=== PATIENT | male | born 1945 | race African-American/Black ===

== ENCOUNTER → 2016-09-04 | Outpatient (CLI) | payer MEDICARE, MEDICAID ==
[~2016-09-04] MED LIST: BARIUM SULFATE 135 ML (E-Z HD) PO ONE
--- NOTE | 2016-09-04 17:25 | RADRPT ---
PROCEDURE: Video-fluoroscopy swallowing study. CLINICAL INDICATION: Dysphagia. TECHNIQUE: Fluoroscopic guided video swallowing study was done in conjunction with the speech ther apist. The study was confined to the oral, pharyngeal, and cervical phases of the swallowing mechani sm. 3.4 minutes of fluoroscopy time was used. 33 series of images were obtained. COMPARISON: No prior study is available for comparison. FINDINGS: There is aspiration during swallowing. IMPRESSION: 1. Abnormal study with aspiration during swallowing. 2. Please refer to the speech therapist's recommendations for future feedings. RPTAT: QQ .Rolan Patel MD, MD Date Time Electronically viewed and signed by .Rolan Patel MD, on 09/04/2016 17:24 .R/
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
== END | disposition home or self-care (01) ==
LOC: RAD 11:45
PROVIDERS: ATTEND Internal Medicine
DX: R91.8 Other nonspecific abnormal finding of lung field (principal); R07.9 Chest pain, unspecified; R13.10 Dysphagia, unspecified
CPT/HCPCS: 71010; 74230; 92611; G8996; G8997; G8998

== ENCOUNTER 2016-09-09 19:50 | Inpatient (IN) | payer MEDICARE, MEDICAID ==
[~2016-09-09] VITALS: Ht 172.7 cm; Wt 70.0 kg
[2016-09-09] MEDS ORDERED: SOD CHLORIDE 0.9% 1,000 ML IV STA (20:24)
[2016-09-09] MEDS ORDERED: KETOROLAC 15 MG INJ IV STA (20:24)
[2016-09-09 21:03] LABS: ADD SCAN DIFF NO
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
[2016-09-09 21:08] LABS: BASOPHILS % 0.5 % (0.0-2.0); EOSINOPHILS # 0.4 10^3/ul (0.0-0.5); EOSINOPHILS % 6.2 % (0.0-7.0); HEMATOCRIT 31.1 % (42.0-52.0); HEMOGLOBIN 10.3 g/dl (14.0-18.0); LYMPHOCYTES # 1.9 10^3/ul (0.8-2.9); LYMPHOCYTES % 29.7 % (15.0-51.0); MEAN CORPUSCULAR HEMOGLOBIN 27.8 pg (29.0-33.0); MEAN CORPUSCULAR HGB CONC 33.1 g/dl (32.0-37.0); MEAN CORPUSCULAR VOLUME 84.1 fl (82.0-101.0); MEAN PLATELET VOLUME 11.6 fl (7.4-10.4); MONOCYTE # 0.9 10^3/ul (0.3-0.9); MONOCYTES % 14.2 % (0.0-11.0); NEUTROPHIL # 3.1 10^3/ul (1.6-7.5); NEUTROPHILS % 49.2 % (39.0-77.0); PLATELET COUNT 318 10^3/UL (140-415); RED CELL DISTRIBUTION WIDTH 15.9 % (11.5-14.5); WHITE BLOOD COUNT 6.3 10^3/ul (4.8-10.8)
--- NOTE | 2016-09-09 21:13 | ERA ---
ER Documentation Chief Complaint Date/Time DATE: 09/09/16 TIME: 21:07 Chief Complaint fall HPI 71-year-old man brought in by EMS for fall earlier today. Patient recently suffered a stroke and has left-sided paresis, he sustained a left brow laceration and has complaints of left knee pain. HPI supplemented by reviewing previous medical records, [facility] records, speaking to EMS, and nursing staff. ROS All systems reviewed and are negative except as per history of present illness. Medications Home Meds Reported Medications Lisinopril* (Zestril*) 2.5 Mg Tablet, 2.5 MG GTB DAILY, #30 TAB HOLD IF SBP<110 OR HR<60 09/09/16 Ascorbic Acid (Vitamin C) 500 Mg Tab, 500 MG GTB DAILY, TAB 09/09/16 Famotidine* (Famotidine*) 20 Mg Tablet, 20 MG GTB DAILY, #30 TAB 09/09/16 Multivit-Min/Iron Fum/Folic AC (Knutx-Pnlyian-Qecxmzny Tablet) 1 Each Tablet, 1 EACH GTB DAILY, TAB 09/09/16 Hydrocodone/Acetaminophen (Lortab 7.5-325 mg Tablet) 1 Each Tablet, 1 EACH GTB Q4H Y for PAIN 4-12/24, TAB 09/09/16 Furosemide* (Lasix*) 20 Mg Tablet, 20 MG GTB BID, TAB 09/09/16 Lactulose* (Lactulose*) 20 Gm/30 Ml Solution, 20 GM GTB DAILY, ML 09/09/16 Ipratropium-Albuterol (Ipratropium-Albuterol) 0.5-3 Mg/3 Ml Ampul.neb, 3 ML INHALATION QID, #30 VIAL 09/09/16 Bisacodyl* (Bisacodyl*) 10 Mg Supp, 10 MG ND DAILY Y for NEEDED, SUPP 09/09/16 Carvedilol* (Coreg*) 3.125 Mg Tablet, 3.125 MG GTB BID, #60 TAB HOLD IF SBP<110 OR HR<60 09/09/16 Lorazepam* (Lorazepam*) 0.5 Mg Tablet, 0.5 MG GTB Q6 Y for ANXIETY, TAB 09/09/16 Aspirin* (Aspirin* Chew) 81 Mg Tab.chew, 81 MG GTB DAILY, TAB.CHEW 09/09/16 Acetaminophen* (Acetaminophen* Susp) 325 Mg/10.15 Ml Solution, 650 MG GTB Q4H Y for MILD PAIN LEVEL 1-3, ML 09/09/16 Allergies Allergies: Coded Allergies: codeine (Unverified Allergy, Unknown, 09/09/16) PMhx/Soc Tracheostomy, dysphagia, stroke with left-sided deficit, gastrostomy tube, hyperlipidemia, anxiety, hypertension, cardiomyopathy, chronic sacral and heel pressure ulcers History of Surgery: Yes (G Tube) Hx Respiratory Disorders: Yes (Trach) Hx Miscellaneous Medical Probl: Yes (CVA,dysphagia, anemia, HTN) Hx Alcohol Use: No Hx Substance Use: No Hx Tobacco Use: No Smoking Status: Unknown if ever smoked FmHx Family History: diabetes Physical Exam Vitals Vital Signs Date Time Temp Pulse Resp B/P Pulse Ox O2 Delivery O2 Flow Rate FiO2 09/09/16 21:20 65 14 109/70 100 Nasal Cannula 4.0 09/09/16 20:09 98.7 72 12 117/76 100 Physical Exam GENERAL: Well-developed, appears dehydrated, afebrile HEENT: Dry mucous membranes, pink conjunctiva, no cervical spine tenderness or step-off deformity, tracheostomy in place with clean dry skin surrounding NEURO: Alert and oriented 3, able to answer simple questions and follow simple commands, positive left upper and lower extremity paresis, moving extremities on the right without difficulty CARDIAC: Regular rate and rhythm, no murmurs rubs or gallops LUNGS: Clear bilaterally no wheezing crackles or stridor ABDOMEN: Soft nontender, no guarding, no rigidity, no rebound, no psoas sign no obturator sign. Normoactive bowel sounds SKIN: Warm and dry to touch, superficial skin ulcerations to the sacrum and heel , superficial left brow laceration measuring 3 cm without active bleeding or gaping. EXTREMITIES: Positive soft tissue contusion and tenderness to the left knee. Calves are bilaterally symmetrical, no Homans sign, no popliteal cord sign. Distal pulses equal and bilateral PSYCH: Normal affect without agitation or irritability Result Diagram: 09/09/16203209/09/162032 Results 24 hrs Laboratory Tests Test 09/09/16 20:33 09/09/16 21:15 White Blood Count 6.310^3/ul Red Blood Count 3.7010^6/ul Hemoglobin 10.3g/dl Hematocrit 31.1% Mean Corpuscular Volume 84.1fl Mean Corpuscular Hemoglobin 27.8pg Mean Corpuscular Hemoglobin Concent 33.1g/dl Red Cell Distribution Width 15.9% Platelet Count 58926^3/UL Mean Platelet Volume 11.6fl Neutrophils % 49.2% Lymphocytes % 29.7% Monocytes % 14.2% Eosinophils % 6.2% Basophils % 0.5% Nucleated Red Blood Cells % 0.0/100WBC Neutrophils # 3.110^3/ul Lymphocytes # 1.910^3/ul Monocytes # 0.910^3/ul Eosinophils # 0.410^3/ul Basophils # 0.010^3/ul Nucleated Red Blood Cells # 0.010^3/ul Prothrombin Time 13.0Sec Prothrombin Time Ratio 1.0 INR International Normalized Ratio 0.98 Sodium Level 141mmol/L Potassium Level 3.8mmol/L Chloride Level 99mmol/L Carbon Dioxide Level 35mmol/L Anion Gap 11 Blood Urea Nitrogen 20mg/dl Creatinine 0.81mg/dl Glucose Level 83mg/dl Calcium Level 9.8mg/dl Total Bilirubin 0.0mg/dl Direct Bilirubin 0.00mg/dl Indirect Bilirubin 0.0mg/dl Aspartate Amino Transf (AST/SGOT) 64IU/L Alanine Aminotransferase (ALT/SGPT) 151IU/L Alkaline Phosphatase 379IU/L Total Protein 7.6g/dl Albumin 4.3g/dl Globulin 3.30g/dl Albumin/Globulin Ratio 1.30 Lipase 31U/L Urine Color YELLOW Urine Clarity CLEAR Urine pH 7.0 Urine Specific [place] 1.012 Urine Ketones NEGATIVEmg/dL Urine Nitrite NEGATIVEmg/dL Urine Bilirubin NEGATIVEmg/dL Urine Urobilinogen NEGATIVEmg/dL Urine Leukocyte Esterase NEGATIVELeu/ul Urine Hemoglobin NEGATIVEmg/dL Urine Glucose NEGATIVEmg/dL Urine Total Protein NEGATIVEmg/dl Current Medications Medications (Trade) Dose Ordered Sig/Dante Route PRN Reason Start Time Stop Time Status Last Admin Dose Admin Sodium Chloride (NS) 1,000 ml @ 1,000 mls/hr Q1H STAT IV 09/09/16 20:24 09/09/16 21:23 DC 09/09/16 21:07 Ketorolac Tromethamine (Toradol) 15 mg ONCE STAT IV 09/09/16 20:24 09/09/16 20:27 DC 09/09/16 21:07 Diphtheria/ Tetanus/Acell Pertussis (Adacel) 0.5 ml ONCE ONCE IM* 09/09/16 21:30 09/09/16 21:31 DC Procedures/MDM IV line was established patient was placed on collection administrator rhythm strip revealed a sinus rhythm at about 80 bpm with upright P and T waves. Patient was afebrile. I administered 1 L normal saline intravenously for dehydration, Toradol 15 mg IV for complaints of pain, and tetanus toxoid 0.5 mL intramuscular injection. Steri-Strips were applied to the left brow with good approximation of the skin. Final length of the laceration was 3 cm. One view chest x-ray performed, read by me as a tracheostomy placed, atelectatic changes bilaterally, no acute infiltrates, no pneumothorax. X-ray Pelvis 1V Interpreted by me: Bones: No fracture Joints: No dislocation Foreign body: None CT scan of the brain was performed there is negative for acute bleed mass or shift although there was a subacute infarct noted consistent with his history. Please refer to radiologist dictation for full report. Three-view x-ray of the left knee was performed there arthritic changes and narrowing of the joint, radiologist read it as impacted fracture and was compared to previous x-ray and it seems this is acute. Given the patient's symptoms he will be admitted for continued medical management, pain control, and orthopedic consultation. CBC was unremarkable, electrolytes revealed dehydration, liver function tests revealed mild transaminitis, troponin was negative, urine analysis was negative for infection. Patient is without complaints of pain at this time and he will be admitted to [facility] for continued medical management and orthopedic consultation. Departure Diagnosis: Primary Impression: Laceration of brow without complication Qualified Code: S01.81XA - Laceration of brow without complication, initial encounter Additional Impressions: Impacted fracture Dehydration Stroke Qualified Code: I63.9 - Cerebrovascular accident (CVA), unspecified mechanism Condition: MARYBEL Del Angel MD Sep 09, 2016 21:12
[2016-09-09 21:25] LABS: ALBUMIN 4.3 g/dl (3.3-4.9); ALBUMIN/GLOBULIN RATIO 1.3; CALCIUM 9.8 mg/dl (8.4-10.2); CREATININE 0.81 mg/dl (0.61-1.24); POTASSIUM 3.8 mmol/L (3.5-5.1); TOTAL PROTEIN 7.6 g/dl (6.1-8.1)
[2016-09-09 21:27] LABS: ADD UMIC NO; UR ASCORBIC ACID 40 mg/dL (NEGATIVE); UR BILIRUBIN (Dip) NEGATIVE (NEGATIVE); UR BLOOD (Dip) NEGATIVE (NEGATIVE); UR CLARITY CLEAR (CLEAR); UR COLOR YELLOW (YELLOW); UR GLUCOSE (Dip) NEGATIVE (NEGATIVE); UR KETONES (Dip) NEGATIVE (NEGATIVE); UR LEUKOCYTE ESTERASE (Dip) NEGATIVE Leu/ul (NEGATIVE); UR NITRITE (Dip) NEGATIVE (NEGATIVE); UR SPECIFIC GRAVITY (Dip) 1.012 (1.003-1.030); UR TOTAL PROTEIN (Dip) NEGATIVE (NEGATIVE); UR UROBILINOGEN (Dip) NEGATIVE (NEGATIVE)
[2016-09-09] MEDS ORDERED: ACET325S GTB (21:30)
[2016-09-09] MEDS ORDERED: DIPHTH/TET/ACEL PERTUSS (ADULT) 0.5 ML VIAL IM* ONE (21:30)
[2016-09-09] MEDS ORDERED: LORA0.5T GTB (21:31)
[2016-09-09] MEDS ORDERED: ASPI81TA3 GTB (21:31)
[2016-09-09] MEDS ORDERED: CARV3.12 GTB (21:32)
[2016-09-09] MEDS ORDERED: IPRA3AMP INHALATION (21:34)
[2016-09-09] MEDS ORDERED: BISA10SU75 PR (21:34)
[2016-09-09] MEDS ORDERED: FURO-110 GTB (21:36)
[2016-09-09] MEDS ORDERED: LACT20SO2 GTB (21:36)
[2016-09-09] MEDS ORDERED: HYDR-3533 GTB (21:37)
[2016-09-09] MEDS ORDERED: MULT-876 GTB (21:38)
[2016-09-09] MEDS ORDERED: FAMO20TA18 GTB (21:39)
[2016-09-09] MEDS ORDERED: ASC500 GTB (21:41)
[2016-09-09] MEDS ORDERED: LISI2.5T80 GTB (21:42)
[2016-09-09 21:47] LABS: INR 0.98
--- NOTE | 2016-09-09 21:47 | RADRPT ---
PROCEDURE: X-ray left knee CLINICAL INDICATION: Injury to the left knee TECHNIQUE: 2 views left knee COMPARISON: Left knee plain film series dated 06/06/2016. FINDINGS: Interval depression of the lateral tibial plateau, suggesting an impacted fracture at the lateral ti bial plateau. This is seen only on the tunnel view. On the AP view of the lateral tibial plateau a ppears intact. Recommend CT correlation. Small amount of joint fluid. There is a healed fracture of the mid shaft left fibular diaphysis. Superior inferior patellar enthesophytes. Enthesopathic changes seen at the anterior tibial tubercl e. Mild medial joint compartment narrowing. Remote injury at the origin of the medial collateral li gament with heterotopic calcifications. IMPRESSION: Impacted fracture at the lateral tibial plateau, and recommend CT correlation. RPTAT: UU Physician Clayton Date Time Electronically viewed and signed by Physician Clayton on 09/09/2016 21:47 RS/
--- NOTE | 2016-09-09 21:53 | RADRPT ---
PROCEDURE: X-ray pelvis. CLINICAL INDICATION: Fall with pelvic pain. TECHNIQUE: Single frontal view of the pelvis. COMPARISON: CT examination the abdomen and pelvis dated 07/03/2016. FINDINGS: No acute fracture or dislocation. Suboptimal position of left hip for full evaluation of the femora l neck. 2 cm lytic lesion in the proximal left femoral diaphysis, and this appears increased in size over in terval since CT examination dated 07/03/2016. CT examination of the right hip may be of further use. A benign-appearing bone island is likely present at the intertrochanteric right hip. Contrast material seen within retained stool in the bowel. Soft tissues otherwise unremarkable. IMPRESSION: 1. No acute fracture. 2. 2 cm lytic lesion in the proximal diaphysis of the left femur appears increased over interval si nce 07/03/2016, concerning for an osteolytic metastatic deposit. 3. CT examination may be of further use for meaningful comparison and further characterization. RPTAT: UU Physician Clayton Date Time Electronically viewed and signed by Physician Clayton on 09/09/2016 21:53 RS/
--- NOTE | 2016-09-09 22:01 | RADRPT ---
PROCEDURE: CT Brain without contrast. CLINICAL INDICATION: Headaches and evaluate for bleed TECHNIQUE: A CT of the brain was performed on a GE LightSpeed 64-slice CT scanner utilizing axial imaging from the skull base through the vertex without IV contrast. Multiplanar reformatted images were made. Images were reviewed on a PACS workstation. The CTDIvol is 43.27 mGy and the DLP is 878 .18 mGycm. One of the following 3 dose reduction techniques were used: Automated exposure control; adjustment of the mA and/or kV according to patient size; or use of iterative reconstruction technique. COMPARISON: None FINDINGS: There is no intracranial hemorrhage, mass effect, or midline shift. No extra-axial fluid collection is seen. The ventricles and sulci are age appropriate. Mild diffuse volume loss is present. Wedge -shaped decreased attenuation is present in the right frontal lobe, insula and operculum compatible with a subacute infarct. A focus of decreased attenuation is present in the left frontal convexity c ompatible with a chronic small vessel infarct. Decreased attenuation is present in the bilateral silver bcortical white matter, centrum semiovale, and periventricular white matter compatible with mild chr onic microvascular ischemic disease. Visualized scalp and calvarium are normal. The bilateral orbits demonstrate prior lens replacement. The bilateral paranasal sinuses and mastoid air cells are remarkable for a lobular retention cyst, polyp or polypoid lesion in the right septated side of the sphenoid sinus. Recommend additional rony ging of the sinuses. IMPRESSION: 1. No evidence of acute intracranial hemorrhage, infarcts, or acute intracranial pathology 2. Subacute appearing right frontal lobe, insular and opercular infarct. Consider MRI to further ev aluate 3. Mild chronic microvascular ischemic disease and mild diffuse volume loss A call report was made to Pk Sr at 09/09/2016 10:00:34 PM following the completion of the examination by the undersigned. RPTAT: HDC .Irina James MD, MD Date Time Electronically viewed and signed by .Irina James MD, on 09/09/2016 22:00 .C/
[2016-09-09 22:22] VITALS: PULSE 87
[2016-09-10] MEDS ORDERED: morphine 4 MG/ML VIAL IV STA (00:15)
[2016-09-10 01:15] VITALS: BP 125/68; RESP 18
[2016-09-10 02:00] VITALS: Ht 172.7 cm; Wt 70.0 kg
[2016-09-10] MEDS ORDERED: BISACODYL 10 MG SUPP PR PRN (04:00)
[2016-09-10] MEDS: ACETAMINOPHEN 650MG/20.3ML CUP GTB PRN (04:26)
[2016-09-10] MEDS: LORAZEPAM 0.5 MG TAB GTB PRN ×3 (04:26→22:33)
[2016-09-10] MEDS: FUROSEMIDE 20 MG TAB GTB SCH ×2 (06:06→18:28)
[2016-09-10 07:31] VITALS: BP 100/67; RESP 19
[2016-09-10] MEDS: ALBUTEROL/IPRATROPIUM (NEB) 3 ML AMP NEB SCH ×4 (08:18→20:12)
[2016-09-10] MEDS: LISINOPRIL 5 MG TAB GTB SCH (09:00)
[2016-09-10] MEDS: LACTULOSE 30ML CUP GTB SCH (09:01)
[2016-09-10] MEDS: ASCORBIC ACID 500 MG TAB GTB SCH (09:01)
[2016-09-10] MEDS: ASPIRIN 81 MG TAB GTB SCH (09:01)
[2016-09-10] MEDS: FAMOTIDINE 20 MG TAB GTB SCH (09:01)
[2016-09-10] MEDS: MULTIVITAMINS/MINERALS TAB GTB SCH (09:11)
[2016-09-10] MEDS: HYDROCODONE/APAP (7.5/325) TAB GTB PRN (11:31)
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
[2016-09-10 20:00] VITALS: BP 135/72; RESP 20
[2016-09-11] MEDS: HYDROCODONE/APAP (7.5/325) TAB GTB PRN ×3 (01:24→19:40)
[2016-09-11] MEDS: LORAZEPAM 0.5 MG TAB GTB PRN ×3 (04:38→18:01)
[2016-09-11 05:25] LABS: ADD SCAN DIFF NO
[2016-09-11 05:30] LABS: BASOPHILS % 0.6 % (0.0-2.0); EOSINOPHILS # 0.6 10^3/ul (0.0-0.5); EOSINOPHILS % 10.7 % (0.0-7.0); HEMATOCRIT 29.7 % (42.0-52.0); LYMPHOCYTES # 1.6 10^3/ul (0.8-2.9); LYMPHOCYTES % 29.4 % (15.0-51.0); MEAN CORPUSCULAR HGB CONC 33.7 g/dl (32.0-37.0); MEAN CORPUSCULAR VOLUME 83.2 fl (82.0-101.0); MEAN PLATELET VOLUME 12.8 fl (7.4-10.4); MONOCYTE # 0.6 10^3/ul (0.3-0.9); NEUTROPHIL # 2.5 10^3/ul (1.6-7.5); NEUTROPHILS % 47.1 % (39.0-77.0); PLATELET COUNT 289 10^3/UL (140-415); RED BLOOD COUNT 3.57 10^6/ul (4.70-6.10); RED CELL DISTRIBUTION WIDTH 15.6 % (11.5-14.5); WHITE BLOOD COUNT 5.3 10^3/ul (4.8-10.8)
[2016-09-11 06:12] LABS: CALCIUM 9.3 mg/dl (8.4-10.2); CREATININE 0.7 mg/dl (0.61-1.24)
[2016-09-11] MEDS: FUROSEMIDE 20 MG TAB GTB SCH ×2 (06:20→17:57)
[2016-09-11 08:10] VITALS: BP 122/72; RESP 20
[2016-09-11] MEDS: MULTIVITAMINS/MINERALS TAB GTB SCH (08:58)
[2016-09-11] MEDS: ASPIRIN 81 MG TAB GTB SCH (08:58)
[2016-09-11] MEDS: LACTULOSE 30ML CUP GTB SCH (08:58)
[2016-09-11] MEDS: FAMOTIDINE 20 MG TAB GTB SCH (08:58)
[2016-09-11] MEDS: ASCORBIC ACID 500 MG TAB GTB SCH (08:58)
[2016-09-11] MEDS: LISINOPRIL 5 MG TAB GTB SCH (08:59)
--- NOTE | 2016-09-11 09:03 | RADRPT ---
PROCEDURE: CT of the left knee CLINICAL INDICATION: Left knee pain, possible fracture TECHNIQUE: Axial images through the left knee without IV contrast. Coronal and sagittal reformat s. Images were interpreted at an independent PACS workstation. CTDI 18.31 mGy DLP 45 4.42 mGy-cm One or more of the following dose reduction techniques were used: Automated exposure control Adjustment of the mA and / or kV according to patient size Use of iterative reconstruction technique. COMPARISON: Radiographs of the left knee September 09, 2016 FINDINGS: The bones are very osteopenic. There is no definite CT evidence of acute fracture. There is mild t o moderate tricompartmental osteoarthrosis, medial femorotibial compartment predominant, with margin al osteophyte formation. There is a small knee joint effusion. There is a small complex popliteal cyst that may contain some blood products or debris (axial 43). There is a 4 mm anterior intra-articular body just anterior t o the anterior root ligament of the lateral meniscus. There is bone proliferation at the tibial tuberosity as well as the superior patella compatible with enthesopathy. There are moderate degenerative changes at the proximal tibiofibular joint. IMPRESSION: 1. No CT evidence of acute osseous abnormality. Significant background osteopenia somewhat limits evaluation and if there is persistent clinical concern MRI may provide additional detail regarding a nondisplaced fracture. 2. 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 3. Small knee joint effusion with complex popliteal cyst that may contain blood products or debris. 4 mm ossified intra-articular body along the anterior aspect of the joint space. RPTAT: UU .Jairo Szymanski MD, Date Time Electronically viewed and signed by .Jairo Szymanski MD, on 09/11/2016 09:02 ./
[2016-09-11] MEDS: ALBUTEROL/IPRATROPIUM (NEB) 3 ML AMP NEB SCH ×3 (09:13→21:01)
--- NOTE | 2016-09-11 14:56 | CONS ---
Date/Time of Note Date/Time of Note DATE: 09/11/16 TIME: 14:41 Assessment/Plan Assessment/Plan Chief Complaint/Hosp Course 71 yo male with metastatic breast cancer no admitted s/p fall with concern for tibial plateau fracture. CT LLE was done which was not diagnostic. # metastatic breast ca -we have contracted the to try an obtain records of what chemotherapy patient has received in the past. is unable to tell me who the patient's treating oncologist is -patient's functional status is so poor however that at this point he would not be a candidate for any type of chemotherapy at this point -if patient needs surgery and this is proven to be a pathologic fracture pt will need XRT to the area -will f/u orthopedic surgery recommendations Problems: (1) Impacted fracture Status: Acute (2) Breast cancer metastasized to brain Status: Chronic Consultation Date/Type/Reason Admit Date/Time Sep 09, 2016 at 22:07 Date of Consultation: Sep 11, 2016 Type of Consultation: oncology Reason for Consultation metastatic breast cancer Referring Provider: ARNOLDO GUILLAUME MD Hx of Present Illness 71 yo with history of metastatic breast cancer to brain, who was recently admitted to [facility] for stroke with left-sided hemiparesis history and respiratory failure with tracheostomy. He was brought to the ER from the nursing facility s/p fall. 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 A CT of that left lower extremity was done which revealed significant background osteopenia where a non displaced fracture could not be ruled out. . Psychological: no complaints Past Medical History metastatic breast cancer anemia h/o CVA with left sided hemiplegia HTN h/o breast cancer with brain mets HTN Family History Significant Family History: no pertinent family hx Social History Alcohol Use: none Smoking Status: Unknown if ever smoked Drug Use: none Exam/Review of Systems Vital Signs Vitals Vital Signs Date Time Temp Pulse Resp B/P Pulse Ox O2 Delivery O2 Flow Rate FiO2 09/11/16 14:18 74 20 100 Nasal Cannula 2.0 09/11/16 08:10 98.7 122/72 Intake and Output 09/10/16 09/10/16 09/11/16 15:00 23:00 07:00 Intake Total 1100 ml 960 ml Balance 1100 ml 960 ml Exam Constitutional: frail, non-verbal Psych: confusion, no complaints Head: normocephalic Eyes: nl conjunctiva ENMT: other (trach in place) Neck: non-tender, supple Respiratory: clear to auscultation Cardiovascular: nl pulses, regular rate and rhythm Gastrointestinal: other (g tube), soft Musculoskeletal: nl extremities to inspection Results Result Diagram: 09/11/16 0450 09/11/16 0450 Results 24 hrs Laboratory Tests Test 09/11/16 04:50 White Blood Count 5.3 Red Blood Count 3.57 L Hemoglobin 10.0 L Hematocrit 29.7 L Mean Corpuscular Volume 83.2 Mean Corpuscular Hemoglobin 28.0 L Mean Corpuscular Hemoglobin Concent 33.7 Red Cell Distribution Width 15.6 H Platelet Count 289 Mean Platelet Volume 12.8 H Neutrophils % 47.1 Lymphocytes % 29.4 Monocytes % 12.0 H Eosinophils % 10.7 H Basophils % 0.6 Nucleated Red Blood Cells % 0.0 Neutrophils # 2.5 Lymphocytes # 1.6 Monocytes # 0.6 Eosinophils # 0.6 H Basophils # 0.0 Nucleated Red Blood Cells # 0.0 Sodium Level 139 Potassium Level 4.0 Chloride Level 102 Carbon Dioxide Level 31 Anion Gap 10 Blood Urea Nitrogen 16 Creatinine 0.70 Glucose Level 102 Calcium Level 9.3 Medications Medications Current Medications Acetaminophen (Tylenol Liquid) 650 mg Q4H PRN GTB MILD PAIN LEVEL 1-3 Last administered on 09/10/16 04:26; Admin Dose 650 MG; Start 09/10/16 at 04:00 Ascorbic Acid (Vitamin C) 500 mg DAILY GTB Last administered on 09/11/16 08:58 ; Admin Dose 500 MG; Start 09/10/16 at 09:00 Aspirin (Aspirin) 81 mg DAILY GTB Last administered on 09/11/16 08:58; Admin Dose 81 MG; Start 09/10/16 at 09:00 Bisacodyl (Dulcolax Supp) 10 mg DAILY PRN [place] NEEDED; Start 09/10/16 at 04:00 Carvedilol (Coreg) 3.125 mg BID GTB Last administered on 09/11/16 08:59; Admin Dose 3.125 MG; Start 09/10/16 at 09:00 Famotidine (Pepcid) 20 mg DAILY GTB Last administered on 09/11/16 08:58; Admin Dose 20 MG; Start 09/10/16 at 09:00 Acetaminophen/ Hydrocodone Bitart ([place] (7.5-325)) 1 tab Q4H PRN GTB PAIN 4-10 10 Last administered on 09/11/16 09:02; Admin Dose 1 TAB; Start 09/10/16 at 04 :00 Lactulose (Enulose) 20 gm DAILY GTB Last administered on 09/11/16 08:58; Admin Dose 20 GM; Start 09/10/16 at 09:00 Lisinopril (Zestril) 2.5 mg DAILY GTB Last administered on 09/11/16 08:59; Admin Dose 2.5 MG; Start 09/10/16 at 09:00 Lorazepam (Ativan) 0.5 mg Q6 PRN GTB ANXIETY Last administered on 09/11/16 11: 02; Admin Dose 0.5 MG; Start 09/10/16 at 04:00 Multivitamins/ Minerals (Theragran-M) 1 tab DAILY GTB Last administered on 09/11 08:58; Admin Dose 1 TAB; Start 09/10/16 at 09:00 KHARI BENSON M.D. Sep 11, 2016 14:52
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
[2016-09-11 20:22] VITALS: BP 137/75; RESP 18
[2016-09-12] MEDS: LORAZEPAM 0.5 MG TAB GTB PRN ×2 (00:31→21:29)
[2016-09-12] MEDS: HYDROCODONE/APAP (7.5/325) TAB GTB PRN (01:51)
[2016-09-12 05:51] LABS: CALCIUM 9.6 mg/dl (8.4-10.2); CREATININE 0.65 mg/dl (0.61-1.24)
[2016-09-12] MEDS: FUROSEMIDE 20 MG TAB GTB SCH ×2 (06:58→17:26)
[2016-09-12 08:12] VITALS: BP 114/57; RESP 20
[2016-09-12] MEDS: ALBUTEROL/IPRATROPIUM (NEB) 3 ML AMP NEB SCH ×4 (08:54→19:37)
[2016-09-12] MEDS: FAMOTIDINE 20 MG TAB GTB SCH (09:27)
[2016-09-12] MEDS: MULTIVITAMINS/MINERALS TAB GTB SCH (09:27)
[2016-09-12] MEDS: ASPIRIN 81 MG TAB GTB SCH (09:27)
[2016-09-12] MEDS: ASCORBIC ACID 500 MG TAB GTB SCH (09:27)
[2016-09-12] MEDS: LISINOPRIL 5 MG TAB GTB SCH (09:28)
[2016-09-12] MEDS: LACTULOSE 30ML CUP GTB SCH (09:29)
--- NOTE | 2016-09-12 15:05 | CONS ---
Date/Time of Note Date/Time of Note DATE: 09/12/16 TIME: 15:03 Assessment/Plan Assessment/Plan Chief Complaint/Hosp Course 71 yo male with metastatic breast cancer no admitted s/p fall with concern for tibial plateau fracture. CT LLE was done which was not diagnostic. # metastatic breast ca -patient's functional status is so poor however that at this point he would not be a candidate for any type of chemotherapy at this point -if patient needs surgery and this is proven to be a pathologic fracture pt will need XRT to the area -will f/u orthopedic surgery recommendations Problems: Consultation Date/Type/Reason Admit Date/Time Sep 09, 2016 at 22:07 Initial Consult Date 09/11/16 Type of Consultation: oncology Reason for Consultation metastatic breast cancer Referring Provider: ARNOLDO GUILLAUME MD 24 HR Interval Summary Free Text/Dictation no acute overnight events Exam/Review of Systems Vital Signs Vitals Vital Signs Date Time Temp Pulse Resp B/P Pulse Ox O2 Delivery O2 Flow Rate FiO2 09/12/16 12:41 75 18 98 Nasal Cannula 2.0 09/12/16 08:12 98.3 114/57 Intake and Output 09/11/16 09/11/16 09/12/16 15:00 23:00 07:00 Intake Total 1100 ml 1210 ml Balance 1100 ml 1210 ml Exam Constitutional: alert, frail, non-verbal Psych: confusion Head: normocephalic Eyes: nl conjunctiva ENMT: nl external ears & nose Neck: non-tender, supple Respiratory: clear to auscultation Cardiovascular: regular rate and rhythm Gastrointestinal: soft Musculoskeletal: muscle weakness Results Result Diagram: 09/11/16 0450 09/12/16 0439 Results 24 hrs Laboratory Tests Test 09/12/16 04:39 Sodium Level 139 Potassium Level 4.0 Chloride Level 101 Carbon Dioxide Level 29 Anion Gap 13 Blood Urea Nitrogen 15 Creatinine 0.65 Glucose Level 110 Calcium Level 9.6 Medications Medications Current Medications Acetaminophen (Tylenol Liquid) 650 mg Q4H PRN GTB MILD PAIN LEVEL 1-3 Last administered on 09/10/16 04:26; Admin Dose 650 MG; Start 09/10/16 at 04:00 Ascorbic Acid (Vitamin C) 500 mg DAILY GTB Last administered on 09/12/16 09:27 ; Admin Dose 500 MG; Start 09/10/16 at 09:00 Aspirin (Aspirin) 81 mg DAILY GTB Last administered on 09/12/16 09:27; Admin Dose 81 MG; Start 09/10/16 at 09:00 Bisacodyl (Dulcolax Supp) 10 mg DAILY PRN [place] NEEDED; Start 09/10/16 at 04:00 Carvedilol (Coreg) 3.125 mg BID GTB Last administered on 09/12/16 09:28; Admin Dose 3.125 MG; Start 09/10/16 at 09:00 Famotidine (Pepcid) 20 mg DAILY GTB Last administered on 09/12/16 09:27; Admin Dose 20 MG; Start 09/10/16 at 09:00 Acetaminophen/ Hydrocodone Bitart ([place] (7.5-325)) 1 tab Q4H PRN GTB PAIN 4- Last administered on 09/12/16 01:51; Admin Dose 1 TAB; Start 09/10/16 at 04 :00 Lactulose (Enulose) 20 gm DAILY GTB Last administered on 09/12/16 09:29; Admin Dose 20 GM; Start 09/10/16 at 09:00 Lisinopril (Zestril) 2.5 mg DAILY GTB Last administered on 09/12/16 09:28; Admin Dose 2.5 MG; Start 09/10/16 at 09:00 Lorazepam (Ativan) 0.5 mg Q6 PRN GTB ANXIETY Last administered on 09/12/16 00: 31; Admin Dose 0.5 MG; Start 09/10/16 at 04:00 Multivitamins/ Minerals (Theragran-M) 1 tab DAILY GTB Last administered on 09/12 09:27; Admin Dose 1 TAB; Start 09/10/16 at 09:00 KHARI BENSON M.D. Sep 12, 2016 15:05
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
[2016-09-12 20:42] VITALS: BP 128/67; RESP 20
[2016-09-13] MEDS: LORAZEPAM 0.5 MG TAB GTB PRN ×3 (04:16→22:02)
[2016-09-13 05:19] LABS: BASOPHILS % 0.4 % (0.0-2.0); EOSINOPHILS # 0.3 10^3/ul (0.0-0.5); EOSINOPHILS % 6.8 % (0.0-7.0); HEMATOCRIT 31.2 % (42.0-52.0); HEMOGLOBIN 10.5 g/dl (14.0-18.0); LYMPHOCYTES # 1.5 10^3/ul (0.8-2.9); LYMPHOCYTES % 29.4 % (15.0-51.0); MEAN CORPUSCULAR HEMOGLOBIN 27.9 pg (29.0-33.0); MEAN CORPUSCULAR HGB CONC 33.7 g/dl (32.0-37.0); MEAN CORPUSCULAR VOLUME 82.8 fl (82.0-101.0); MEAN PLATELET VOLUME 12.5 fl (7.4-10.4); MONOCYTE # 0.6 10^3/ul (0.3-0.9); MONOCYTES % 12.1 % (0.0-11.0); NEUTROPHIL # 2.6 10^3/ul (1.6-7.5); NEUTROPHILS % 51.1 % (39.0-77.0); PLATELET COUNT 310 10^3/UL (140-415); RED BLOOD COUNT 3.77 10^6/ul (4.70-6.10); RED CELL DISTRIBUTION WIDTH 15.6 % (11.5-14.5)
[2016-09-13] MEDS: FUROSEMIDE 20 MG TAB GTB SCH ×2 (05:20→18:15)
[2016-09-13 05:51] LABS: CALCIUM 9.9 mg/dl (8.4-10.2); CREATININE 0.63 mg/dl (0.61-1.24); POTASSIUM 4.3 mmol/L (3.5-5.1)
[2016-09-13 06:01] LABS: ADD SCAN DIFF NO
[2016-09-13] MEDS: ACETAMINOPHEN 650MG/20.3ML CUP GTB PRN (08:46)
[2016-09-13] MEDS: LACTULOSE 30ML CUP GTB SCH (08:46)
[2016-09-13] MEDS: MULTIVITAMINS/MINERALS TAB GTB SCH (08:46)
[2016-09-13] MEDS: LISINOPRIL 5 MG TAB GTB SCH (08:47)
[2016-09-13] MEDS: ASPIRIN 81 MG TAB GTB SCH (08:47)
[2016-09-13] MEDS: FAMOTIDINE 20 MG TAB GTB SCH (08:47)
[2016-09-13] MEDS: ASCORBIC ACID 500 MG TAB GTB SCH (08:47)
[2016-09-13] MEDS: ALBUTEROL/IPRATROPIUM (NEB) 3 ML AMP NEB SCH ×4 (08:51→19:47)
--- NOTE | 2016-09-13 10:04 | CONS ---
Date/Time of Note Date/Time of Note DATE: 09/13/16 TIME: 10:03 Assessment/Plan Assessment/Plan Chief Complaint/Hosp Course 71 yo male with metastatic breast cancer no admitted s/p fall with concern for tibial plateau fracture. CT LLE was done which was not diagnostic. # metastatic breast ca -patient's functional status is so poor however that at this point he would not be a candidate for any type of chemotherapy at this point -if patient needs surgery and this is proven to be a pathologic fracture pt will need XRT to the area -will f/u orthopedic surgery recommendations Problems: Consultation Date/Type/Reason Admit Date/Time Sep 09, 2016 at 22:07 Initial Consult Date 09/11/16 Type of Consultation: oncology Reason for Consultation metastatic breast cancer Referring Provider: ARNOLDO GUILLAUME MD 24 HR Interval Summary Free Text/Dictation no acute overnight events Exam/Review of Systems Vital Signs Vitals Vital Signs Date Time Temp Pulse Resp B/P Pulse Ox O2 Delivery O2 Flow Rate FiO2 09/13/16 08:51 61 18 100 Nasal Cannula 2.0 09/12/16 20:42 98.9 128/67 Intake and Output 09/12/16 09/12/16 09/13/16 15:00 23:00 07:00 Intake Total 560 ml 1400 ml Balance 560 ml 1400 ml Exam Constitutional: alert, oriented Psych: no complaints Head: normocephalic Eyes: nl conjunctiva ENMT: nl external ears & nose Neck: non-tender, supple Respiratory: clear to auscultation, normal air movement Cardiovascular: regular rate and rhythm Gastrointestinal: soft Musculoskeletal: nl extremities to inspection, nl gait and stance Extremities: normal pulses Results Result Diagram: 09/13/16 0432 09/13/16 0423 Results 24 hrs Laboratory Tests Test 09/13/16 04:23 09/13/16 04:32 Sodium Level 140 Potassium Level 4.3 Chloride Level 100 Carbon Dioxide Level 31 Anion Gap 13 Blood Urea Nitrogen 16 Creatinine 0.63 Glucose Level 85 Calcium Level 9.9 White Blood Count 5.0 Red Blood Count 3.77 L Hemoglobin 10.5 L Hematocrit 31.2 L Mean Corpuscular Volume 82.8 Mean Corpuscular Hemoglobin 27.9 L Mean Corpuscular Hemoglobin Concent 33.7 Red Cell Distribution Width 15.6 H Platelet Count 310 Mean Platelet Volume 12.5 H Neutrophils % 51.1 Lymphocytes % 29.4 Monocytes % 12.1 H Eosinophils % 6.8 Basophils % 0.4 Nucleated Red Blood Cells % 0.0 Neutrophils # 2.6 Lymphocytes # 1.5 Monocytes # 0.6 Eosinophils # 0.3 Basophils # 0.0 Nucleated Red Blood Cells # 0.0 Medications Medications Current Medications Acetaminophen (Tylenol Liquid) 650 mg Q4H PRN GTB MILD PAIN LEVEL 1-3 Last administered on 09/13/16 08:46; Admin Dose 650 MG; Start 09/10/16 at 04:00 Ascorbic Acid (Vitamin C) 500 mg DAILY GTB Last administered on 09/13/16 08:47 ; Admin Dose 500 MG; Start 09/10/16 at 09:00 Aspirin (Aspirin) 81 mg DAILY GTB Last administered on 09/13/16 08:47; Admin Dose 81 MG; Start 09/10/16 at 09:00 Bisacodyl (Dulcolax Supp) 10 mg DAILY PRN [place] NEEDED; Start 09/10/16 at 04:00 Carvedilol (Coreg) 3.125 mg BID GTB Last administered on 09/13/16 08:47; Admin Dose 3.125 MG; Start 09/10/16 at 09:00 Famotidine (Pepcid) 20 mg DAILY GTB Last administered on 09/13/16 08:47; Admin Dose 20 MG; Start 09/10/16 at 09:00 Acetaminophen/ Hydrocodone Bitart ([place] (7.5-325)) 1 tab Q4H PRN GTB PAIN 4-10 /10 Last administered on 09/12/16 01:51; Admin Dose 1 TAB; Start 09/10/16 at 04 :00 Lactulose (Enulose) 20 gm DAILY GTB Last administered on 09/13/16 08:46; Admin Dose 20 GM; Start 09/10/16 at 09:00 Lisinopril (Zestril) 2.5 mg DAILY GTB Last administered on 09/13/16 08:47; Admin Dose 2.5 MG; Start 09/10/16 at 09:00 Lorazepam (Ativan) 0.5 mg Q6 PRN GTB ANXIETY Last administered on 09/13/16 04: 16; Admin Dose 0.5 MG; Start 09/10/16 at 04:00 Multivitamins/ Minerals (Theragran-M) 1 tab DAILY GTB Last administered on 09/13t 08:46; Admin Dose 1 TAB; Start 09/10/16 at 09:00 KHARI BENSON M.D. Sep 13, 2016 10:04
[2016-09-13] MEDS: HYDROCODONE/APAP (7.5/325) TAB GTB PRN (14:58)
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
[2016-09-13 20:06] VITALS: BP 129/68; RESP 18
[2016-09-14] MEDS: HYDROCODONE/APAP (7.5/325) TAB GTB PRN (01:34)
[2016-09-14 06:05] LABS: ALBUMIN 3.8 g/dl (3.3-4.9); ALBUMIN/GLOBULIN RATIO 1.4; CALCIUM 9.8 mg/dl (8.4-10.2); CREATININE 0.7 mg/dl (0.61-1.24); POTASSIUM 4.2 mmol/L (3.5-5.1); TOTAL PROTEIN 6.5 g/dl (6.1-8.1)
[2016-09-14] MEDS: FUROSEMIDE 20 MG TAB GTB SCH ×2 (06:39→19:09)
[2016-09-14 07:48] VITALS: BP 156/79; RESP 18
[2016-09-14] MEDS: ALBUTEROL/IPRATROPIUM (NEB) 3 ML AMP NEB SCH ×4 (08:18→21:17)
[2016-09-14] MEDS: LACTULOSE 30ML CUP GTB SCH (11:36)
[2016-09-14] MEDS: MULTIVITAMINS/MINERALS TAB GTB SCH (11:36)
[2016-09-14] MEDS: ASPIRIN 81 MG TAB GTB SCH (11:37)
[2016-09-14] MEDS: LISINOPRIL 5 MG TAB GTB SCH (11:37)
[2016-09-14] MEDS: FAMOTIDINE 20 MG TAB GTB SCH (11:37)
[2016-09-14] MEDS: ASCORBIC ACID 500 MG TAB GTB SCH (11:37)
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
[2016-09-14 19:43] VITALS: BP 138/78; RESP 16
[2016-09-14] MEDS: ACETAMINOPHEN 650MG/20.3ML CUP GTB PRN (21:03)
[2016-09-15 05:10] LABS: BASOPHILS % 0.9 % (0.0-2.0); EOSINOPHILS # 0.3 10^3/ul (0.0-0.5); HEMATOCRIT 31.6 % (42.0-52.0); HEMOGLOBIN 10.5 g/dl (14.0-18.0); LYMPHOCYTES # 1.7 10^3/ul (0.8-2.9); LYMPHOCYTES % 37.2 % (15.0-51.0); MEAN CORPUSCULAR HEMOGLOBIN 27.2 pg (29.0-33.0); MEAN CORPUSCULAR HGB CONC 33.2 g/dl (32.0-37.0); MEAN CORPUSCULAR VOLUME 81.9 fl (82.0-101.0); MEAN PLATELET VOLUME 11.6 fl (7.4-10.4); MONOCYTE # 0.6 10^3/ul (0.3-0.9); MONOCYTES % 13.9 % (0.0-11.0); NEUTROPHIL # 1.9 10^3/ul (1.6-7.5); NEUTROPHILS % 41.8 % (39.0-77.0); PLATELET COUNT 317 10^3/UL (140-415); RED BLOOD COUNT 3.86 10^6/ul (4.70-6.10); RED CELL DISTRIBUTION WIDTH 15.3 % (11.5-14.5); WHITE BLOOD COUNT 4.5 10^3/ul (4.8-10.8)
[2016-09-15] MEDS: FUROSEMIDE 20 MG TAB GTB SCH ×2 (05:23→17:31)
[2016-09-15 05:29] LABS: CALCIUM 10.1 mg/dl (8.4-10.2); CREATININE 0.65 mg/dl (0.61-1.24)
[2016-09-15 07:10] LABS: ADD SCAN DIFF NO
[2016-09-15 07:31] VITALS: BP 120/70; RESP 18
[2016-09-15 07:35] VITALS: BP 132/76; RESP 17
[2016-09-15] MEDS: ALBUTEROL/IPRATROPIUM (NEB) 3 ML AMP NEB SCH ×4 (07:57→20:17)
[2016-09-15] MEDS: MULTIVITAMINS/MINERALS TAB GTB SCH (09:05)
[2016-09-15] MEDS: FAMOTIDINE 20 MG TAB GTB SCH (09:05)
[2016-09-15] MEDS: LISINOPRIL 5 MG TAB GTB SCH (09:06)
[2016-09-15] MEDS: ASPIRIN 81 MG TAB GTB SCH (09:06)
[2016-09-15] MEDS: ASCORBIC ACID 500 MG TAB GTB SCH (09:06)
[2016-09-15] MEDS: LACTULOSE 30ML CUP GTB SCH (09:07)
[2016-09-15] MEDS: HYDROCODONE/APAP (7.5/325) TAB GTB PRN ×2 (10:06→17:30)
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
[2016-09-15 19:37] VITALS: BP 124/75; RESP 16
[2016-09-16 05:47] LABS: BASOPHILS % 0.7 % (0.0-2.0); EOSINOPHILS # 0.4 10^3/ul (0.0-0.5); EOSINOPHILS % 6.2 % (0.0-7.0); HEMATOCRIT 31.5 % (42.0-52.0); HEMOGLOBIN 10.5 g/dl (14.0-18.0); LYMPHOCYTES # 2.2 10^3/ul (0.8-2.9); LYMPHOCYTES % 36.1 % (15.0-51.0); MEAN CORPUSCULAR HEMOGLOBIN 27.3 pg (29.0-33.0); MEAN CORPUSCULAR HGB CONC 33.3 g/dl (32.0-37.0); MEAN PLATELET VOLUME 12.2 fl (7.4-10.4); MONOCYTE # 0.8 10^3/ul (0.3-0.9); MONOCYTES % 12.9 % (0.0-11.0); NEUTROPHIL # 2.6 10^3/ul (1.6-7.5); NEUTROPHILS % 43.8 % (39.0-77.0); PLATELET COUNT 327 10^3/UL (140-415); RED BLOOD COUNT 3.84 10^6/ul (4.70-6.10); RED CELL DISTRIBUTION WIDTH 15.4 % (11.5-14.5)
[2016-09-16 05:56] LABS: ADD SCAN DIFF NO
[2016-09-16 06:01] LABS: CALCIUM 9.7 mg/dl (8.4-10.2); CREATININE 0.79 mg/dl (0.61-1.24); POTASSIUM 3.9 mmol/L (3.5-5.1)
[2016-09-16] MEDS: FUROSEMIDE 20 MG TAB GTB SCH ×2 (06:01→17:08)
[2016-09-16 07:18] VITALS: BP 124/59; RESP 17
[2016-09-16] MEDS: FAMOTIDINE 20 MG TAB GTB SCH (08:04)
[2016-09-16] MEDS: LISINOPRIL 5 MG TAB GTB SCH (08:04)
[2016-09-16] MEDS: ASPIRIN 81 MG TAB GTB SCH (08:04)
[2016-09-16] MEDS: MULTIVITAMINS/MINERALS TAB GTB SCH (08:06)
[2016-09-16] MEDS: ASCORBIC ACID 500 MG TAB GTB SCH (08:06)
[2016-09-16] MEDS: LACTULOSE 30ML CUP GTB SCH (08:06)
[2016-09-16] MEDS: ALBUTEROL/IPRATROPIUM (NEB) 3 ML AMP NEB SCH ×4 (08:29→19:14)
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
[2016-09-16 19:10] VITALS: BP 106/58; RESP 17
[2016-09-16] MEDS: HYDROCODONE/APAP (7.5/325) TAB GTB PRN (20:15)
[2016-09-17 05:00] LABS: ADD SCAN DIFF NO
[2016-09-17 05:13] LABS: BASOPHILS % 0.6 % (0.0-2.0); EOSINOPHILS # 0.4 10^3/ul (0.0-0.5); EOSINOPHILS % 7.3 % (0.0-7.0); HEMATOCRIT 31.6 % (42.0-52.0); HEMOGLOBIN 10.5 g/dl (14.0-18.0); LYMPHOCYTES # 1.6 10^3/ul (0.8-2.9); LYMPHOCYTES % 32.3 % (15.0-51.0); MEAN CORPUSCULAR HEMOGLOBIN 27.1 pg (29.0-33.0); MEAN CORPUSCULAR HGB CONC 33.2 g/dl (32.0-37.0); MEAN CORPUSCULAR VOLUME 81.7 fl (82.0-101.0); MEAN PLATELET VOLUME 11.8 fl (7.4-10.4); MONOCYTE # 0.7 10^3/ul (0.3-0.9); MONOCYTES % 13.4 % (0.0-11.0); NEUTROPHIL # 2.3 10^3/ul (1.6-7.5); NEUTROPHILS % 46.2 % (39.0-77.0); PLATELET COUNT 330 10^3/UL (140-415); RED BLOOD COUNT 3.87 10^6/ul (4.70-6.10); RED CELL DISTRIBUTION WIDTH 15.6 % (11.5-14.5); WHITE BLOOD COUNT 5.1 10^3/ul (4.8-10.8)
[2016-09-17] MEDS: FUROSEMIDE 20 MG TAB GTB SCH ×2 (06:21→17:08)
[2016-09-17] MEDS: ALBUTEROL/IPRATROPIUM (NEB) 3 ML AMP NEB SCH ×4 (07:19→19:51)
[2016-09-17 07:29] LABS: CALCIUM 9.6 mg/dl (8.4-10.2); CREATININE 0.79 mg/dl (0.61-1.24); POTASSIUM 3.8 mmol/L (3.5-5.1)
[2016-09-17 07:51] VITALS: BP 117/63; RESP 18
[2016-09-17] MEDS: ASPIRIN 81 MG TAB GTB SCH (09:11)
[2016-09-17] MEDS: LACTULOSE 30ML CUP GTB SCH (09:12)
[2016-09-17] MEDS: ASCORBIC ACID 500 MG TAB GTB SCH (09:12)
[2016-09-17] MEDS: FAMOTIDINE 20 MG TAB GTB SCH (09:12)
[2016-09-17] MEDS: LISINOPRIL 5 MG TAB GTB SCH (09:12)
[2016-09-17] MEDS: MULTIVITAMINS/MINERALS TAB GTB SCH (09:12)
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
[2016-09-17 19:50] VITALS: BP 121/54; RESP 17
[2016-09-18] MEDS: HYDROCODONE/APAP (7.5/325) TAB GTB PRN (00:46)
[2016-09-18 05:13] LABS: ADD SCAN DIFF NO
[2016-09-18 05:22] LABS: BASOPHILS % 0.8 % (0.0-2.0); EOSINOPHILS # 0.3 10^3/ul (0.0-0.5); EOSINOPHILS % 6.5 % (0.0-7.0); HEMATOCRIT 31.4 % (42.0-52.0); HEMOGLOBIN 10.4 g/dl (14.0-18.0); LYMPHOCYTES # 2.1 10^3/ul (0.8-2.9); LYMPHOCYTES % 42.9 % (15.0-51.0); MEAN CORPUSCULAR HEMOGLOBIN 27.2 pg (29.0-33.0); MEAN CORPUSCULAR HGB CONC 33.1 g/dl (32.0-37.0); MEAN CORPUSCULAR VOLUME 82.2 fl (82.0-101.0); MONOCYTE # 0.7 10^3/ul (0.3-0.9); MONOCYTES % 13.2 % (0.0-11.0); NEUTROPHIL # 1.8 10^3/ul (1.6-7.5); NEUTROPHILS % 36.4 % (39.0-77.0); PLATELET COUNT 335 10^3/UL (140-415); RED BLOOD COUNT 3.82 10^6/ul (4.70-6.10); RED CELL DISTRIBUTION WIDTH 15.8 % (11.5-14.5); WHITE BLOOD COUNT 4.9 10^3/ul (4.8-10.8)
[2016-09-18] MEDS: FUROSEMIDE 20 MG TAB GTB SCH (05:25)
[2016-09-18 05:50] LABS: CREATININE 0.78 mg/dl (0.61-1.24)
[2016-09-18] MEDS: ALBUTEROL/IPRATROPIUM (NEB) 3 ML AMP NEB SCH ×2 (08:14→11:55)
[2016-09-18 08:22] VITALS: BP 124/69; RESP 18
[2016-09-18] MEDS: ASPIRIN 81 MG TAB GTB SCH (09:58)
[2016-09-18] MEDS: ASCORBIC ACID 500 MG TAB GTB SCH (09:58)
[2016-09-18] MEDS: MULTIVITAMINS/MINERALS TAB GTB SCH (09:58)
[2016-09-18] MEDS: FAMOTIDINE 20 MG TAB GTB SCH (09:59)
[2016-09-18] MEDS: LISINOPRIL 5 MG TAB GTB SCH (09:59)
[2016-09-18] MEDS: LACTULOSE 30ML CUP GTB SCH (09:59)
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
== END 2016-09-18 14:45 | DRG 563 ==
LOC: E/R 19:50 → MS1 22:07
PROVIDERS: ADMIT Internal Medicine; ATTEND Internal Medicine
DX: S82.142A Displaced bicondylar fracture of left tibia, initial encounter for closed fracture (principal); I69.854 Hemiplegia and hemiparesis following other cerebrovascular disease affecting left non-dominant side; C79.31 Secondary malignant neoplasm of brain; Z93.0 Tracheostomy status; Z93.1 Gastrostomy status; R13.10 Dysphagia, unspecified; J44.9 Chronic obstructive pulmonary disease, unspecified; D64.9 Anemia, unspecified; I10 Essential (primary) hypertension; R74.0 Nonspecific elevation of levels of transaminase and lactic acid dehydrogenase [LDH]; S01.112A Laceration without foreign body of left eyelid and periocular area, initial encounter; W01.0XXA Fall on same level from slipping, tripping and stumbling without subsequent striking against object, initial encounter; Y92.129 Unspecified place in nursing home as the place of occurrence of the external cause; Z85.3 Personal history of malignant neoplasm of breast; Z23 Encounter for immunization; Z79.82 Long term (current) use of aspirin
CPT/HCPCS: 36415; 70450; 71010; 72170; 73562; 73700; 80048; 80053; 81003; 83690; 85025; 85610; 87081; 90471; 90715; 92610; 94640; 94664; 96374; 96375; J1885; J2270; J7030

== ENCOUNTER 2016-09-26 17:52 | Inpatient (IN) | payer MEDICARE, MEDICAID ==
[~2016-09-26] VITALS: Ht 182.9 cm; Wt 71.6 kg
[~2016-09-26 17:52] MED LIST changes: +ACET325S GTB; +ASC500 GTB; +ASPI81TA3 GTB; -BARIUM SULFATE 135 ML (E-Z HD) PO ONE; +BISA10SU75 PR; +CARV3.12 GTB; +FAMO20TA18 GTB; +FURO-110 GTB; +HYDR-3533 GTB; +IPRA3AMP INHALATION; +LACT20SO2 GTB; +LISI2.5T80 GTB; +LORA0.5T GTB; +MULT-876 GTB
[2016-09-26 18:08] VITALS: Ht 182.9 cm; Wt 71.6 kg
[2016-09-26] MEDS ORDERED: KETOROLAC 30 MG INJ IM STA (18:21)
[2016-09-26] MEDS ORDERED: ONDANSETRON 4 MG INJ IV STA (18:54)
[2016-09-26] MEDS ORDERED: SOD CHLORIDE 0.9% 1,000 ML IV STA (18:54)
[2016-09-26] MEDS ORDERED: morphine 4 MG/ML VIAL IV STA (18:54)
--- NOTE | 2016-09-26 19:03 | ERA ---
ER Documentation Chief Complaint Date/Time DATE: 09/26/16 TIME: 18:54 Chief Complaint G-tube fell out today, smaller lumen tube in place HPI 71-year-old man brought in by EMS from [facility] for dislodged gastrostomy tube. Patient has a long history of dysphagia and requires G-tube feedings. Patient complains of left upper arm pain and did mention something about falling off of the bed. skilled nursing records do not mention anything about her recent fall, no fevers or chills, no complaints of chest pain or shortness of breath. HPI supplemented by reviewing past medical history, half-way records, speaking to EMS, and nursing staff. ROS All systems reviewed and are negative except as per history of present illness. Medications Home Meds Reported Medications Tuberculin,Purif.prot.deriv. (Tubersol) 5 Tub Unit/0.1 Ml Vial, 5 TUB ID QHS Y for TAKE DIRECTED, VIAL 09/26/16 Hydrocodone/Acetaminophen ([place] 5-325 Tablet) 1 Each Tablet, 1 EACH GTB Q4H Y for PAIN -12/24, TAB 09/26/16 Lisinopril* (Zestril*) 2.5 Mg Tablet, 2.5 MG GTB DAILY, #30 TAB HOLD IF SBP<110 OR HR<60 09/09/16 Ascorbic Acid (Vitamin C) 500 Mg Tab, 500 MG GTB DAILY, TAB 09/09/16 Famotidine* (Famotidine*) 20 Mg Tablet, 20 MG GTB DAILY, #30 TAB 09/09/16 Multivit-Min/Iron Fum/Folic AC (Fnzek-Bpfsrax-Wihwvepu Tablet) 1 Each Tablet, 1 EACH GTB DAILY, TAB 09/09/16 Furosemide* (Lasix*) 20 Mg Tablet, 20 MG GTB BID, TAB 09/09/16 Lactulose* (Lactulose*) 20 Gm/30 Ml Solution, 20 GM GTB DAILY, ML FOR CONSTIPATION AND EDEMA 09/09/16 Ipratropium-Albuterol (Ipratropium-Albuterol) 0.5-3 Mg/3 Ml Ampul.neb, 3 ML INHALATION QID, #30 VIAL 09/09/16 Carvedilol* (Coreg*) 3.125 Mg Tablet, 3.125 MG GTB BID, #60 TAB HOLD IF SBP<110 OR HR<60 09/09/16 Lorazepam* (Lorazepam*) 0.5 Mg Tablet, 0.5 MG GTB Q6 Y for ANXIETY, TAB 09/09/16 Aspirin* (Aspirin* Chew) 81 Mg Tab.chew, 81 MG GTB DAILY, TAB.CHEW 09/09/16 Discontinued Reported Medications Hydrocodone/Acetaminophen (Lortab 7.5-325 mg Tablet) 1 Each Tablet, 1 EACH GTB Q4H Y for PAIN 4-1010, TAB 09/09/16 Bisacodyl* (Bisacodyl*) 10 Mg Supp, 10 MG [place] DAILY Y for NEEDED, SUPP 09/09/16 Acetaminophen* (Acetaminophen* Susp) 325 Mg/10.15 Ml Solution, 650 MG GTB Q4H Y for MILD PAIN LEVEL 1-3, ML 09/09/16 Allergies Allergies: Coded Allergies: codeine (Unverified Allergy, Unknown, 09/26/16) PMhx/Soc Stroke, left-sided paresis, hypertension, anxiety, GERD, cardiomyopathy, dysphagia, gastritis, bedbound state, tracheostomy History of Surgery: Yes Hx Neurological Disorder: Yes Hx Respiratory Disorders: Yes Hx Cardiac Disorders: Yes Hx Psychiatric Problems: Yes Hx Miscellaneous Medical Probl: Yes (TRACH/G-TUBE) Hx Alcohol Use: No Hx Substance Use: No Hx Tobacco Use: No Smoking Status: Never smoker FmHx Family History: No diabetes Physical Exam Vitals Vital Signs Date Time Temp Pulse Resp B/P Pulse Ox O2 Delivery O2 Flow Rate FiO2 09/26/16 19:48 82 16 138/77 100 09/26/16 18:25 97.9 09/26/16 18:08 98.9 102 16 136/85 98 Physical Exam GENERAL: Elderly, chronically debilitated man, appears dehydrated, afebrile, moderate discomfort HEENT: Dry mucous membranes, pink conjunctiva, tracheostomy in place, no goiter , no cervical spine tenderness or step-off deformity. No submandibular induration, and no pharyngeal erythema NEURO: Alert and oriented 1, able to answer simple questions and follows simple commands, left-sided paresis which is chronic, pupils equal round reactive to light CARDIAC: Regular rate and rhythm, no murmurs rubs or gallops LUNGS: Clear bilaterally no wheezing crackles or stridor ABDOMEN: Soft nontender, no guarding, no rigidity, no rebound, no psoas sign no obturator sign. Gastrostomy site appears clean and dry, Swift catheter in place to keep it open. SKIN: Warm and dry to touch, soft tissue contusion over the left mid upper extremity no lacerations hematomas or abrasions noted EXTREMITIES: No clubbing cyanosis or edema, calves are bilaterally symmetrical, no Homans sign, no popliteal cord sign. Distal pulses equal and bilateral. There is a bony deformity to the left mid arm mildly tender to touch PSYCH: Normal affect without agitation or irritability Result Diagram: 09/26/16189909/26/161899 Results 24 hrs Laboratory Tests Test 09/26/16 19:00 White Blood Count 8.310^3/ul Red Blood Count 4.3810^6/ul Hemoglobin 12.1g/dl Hematocrit 35.8% Mean Corpuscular Volume 81.7fl Mean Corpuscular Hemoglobin 27.6pg Mean Corpuscular Hemoglobin Concent 33.8g/dl Red Cell Distribution Width 15.7% Platelet Count 14822^3/UL Mean Platelet Volume 11.5fl Neutrophils % 73.1% Lymphocytes % 19.1% Monocytes % 7.3% Eosinophils % 0.2% Basophils % 0.1% Nucleated Red Blood Cells % 0.0/100WBC Neutrophils # 6.010^3/ul Lymphocytes # 1.610^3/ul Monocytes # 0.610^3/ul Eosinophils # 0.010^3/ul Basophils # 0.010^3/ul Nucleated Red Blood Cells # 0.010^3/ul Prothrombin Time 13.3Sec Prothrombin Time Ratio 1.0 INR International Normalized Ratio 1.01 Sodium Level 137mmol/L Potassium Level 3.7mmol/L Chloride Level 99mmol/L Carbon Dioxide Level 32mmol/L Anion Gap 10 Blood Urea Nitrogen 21mg/dl Creatinine 0.79mg/dl Glucose Level 89mg/dl Calcium Level 10.6mg/dl Total Bilirubin 0.1mg/dl Direct Bilirubin 0.00mg/dl Indirect Bilirubin 0.1mg/dl Aspartate Amino Transf (AST/SGOT) 110IU/L Alanine Aminotransferase (ALT/SGPT) 233IU/L Alkaline Phosphatase 417IU/L Troponin I < 0.012ng/ml Total Protein 8.8g/dl Albumin 4.6g/dl Globulin 4.20g/dl Albumin/Globulin Ratio 1.09 Lipase 24U/L Current Medications Medications (Trade) Dose Ordered Sig/Dante Route PRN Reason Start Time Stop Time Status Last Admin Dose Admin Ketorolac Tromethamine 30 mg 30 mg ONCE STAT IM 09/26/16 18:21 09/26/16 18:22 DC 09/26/16 18:44 Sodium Chloride (NS) 1,000 ml @ 1,000 mls/hr Q1H STAT IV 09/26/16 18:54 09/26/16 19:53 DC 09/26/16 19:21 Morphine Sulfate (morphine) 4 mg ONCE STAT IV 09/26/16 18:54 09/26/16 19:01 DC 09/26/16 19:19 Ondansetron HCl (Zofran Inj) 4 mg ONCE STAT IV 09/26/16 18:54 09/26/16 19:00 DC 09/26/16 19:19 IV Flush (NS 3 ml) 3 ml PER PROTOCOL IV 09/26/16 19:30 Ondansetron HCl (Zofran Inj) 4 mg Q6H PRN IV NAUSEA AND/OR VOMITING 09/26/16 19:30 Morphine Sulfate (morphine) 2 mg Q4H PRN IV PAIN LEVEL 7-10 09/26/16 19:30 Famotidine (Pepcid Iv) 20 mg Q12 IV 09/26/16 21:00 Enoxaparin Sodium 30 mg 30 mg DAILY SC 09/27/16 09:00 Sodium Chloride (NS) 1,000 ml @ 100 mls/hr Q10H IV 09/26/16 19:30 Procedures/[facility] IV line was established patient was placed on school lunch monitor rhythm strip revealed a sinus rhythm at about 80 bpm with upright P and T waves. Patient was afebrile. I administered 1 L normal saline intravenously for dehydration, morphine 4 mg IV , Zofran 4 mg IV, Toradol 50 mg IV. One AP view of the chest performed, read by me reveals no acute infiltrates, normal mediastinum, sharp costophrenic and cardiac borders, no air under the diaphragm. Otherwise unremarkable chest x-ray. X-ray left humerus 2V Interpreted by me: Bones: Acute transverse fracture of the proximal left humerus shaft Joints: No dislocation Foreign body: None Swift catheter in the gastrostomy was replaced by me at the bedside, gastrostomy site was inspected by me, appears patent and the skin around the site appears clean and dry. A new gastrostomy tube was inserted by me under sterile procedure and balloon was insufflated with 9 cc of sterile saline. Proper positioning was confirmed by me via auscultation and suctioning. Patient tolerated procedure well. Gastrostomy tube was secured in place, gauze dressing was applied. CBC and electrolytes are normal, liver function tests revealed revealed transaminitis, troponin negative EKG performed, read by me revealed a normal sinus rhythm 84 bpm, normal axis, narrow QRS complex, no concerning ST elevations or depressions noted. Departure Diagnosis: Primary Impression: Encounter for feeding tube placement Additional Impressions: Closed left humeral fracture Qualified Code: S42.292A - Other closed displaced fracture of proximal end of left humerus, initial encounter Dehydration Dysphagia Qualified Code: R13.10 - Dysphagia, unspecified type Condition: MARYBEL Del Angel MD Sep 26, 2016 19:03
[2016-09-26 19:16] LABS: ADD SCAN DIFF NO
[2016-09-26 19:18] LABS: BASOPHILS % 0.1 % (0.0-2.0); EOSINOPHILS % 0.2 % (0.0-7.0); HEMATOCRIT 35.8 % (42.0-52.0); HEMOGLOBIN 12.1 g/dl (14.0-18.0); LYMPHOCYTES # 1.6 10^3/ul (0.8-2.9); LYMPHOCYTES % 19.1 % (15.0-51.0); MEAN CORPUSCULAR HEMOGLOBIN 27.6 pg (29.0-33.0); MEAN CORPUSCULAR HGB CONC 33.8 g/dl (32.0-37.0); MEAN CORPUSCULAR VOLUME 81.7 fl (82.0-101.0); MEAN PLATELET VOLUME 11.5 fl (7.4-10.4); MONOCYTE # 0.6 10^3/ul (0.3-0.9); MONOCYTES % 7.3 % (0.0-11.0); NEUTROPHILS % 73.1 % (39.0-77.0); PLATELET COUNT 448 10^3/UL (140-415); RED BLOOD COUNT 4.38 10^6/ul (4.70-6.10); RED CELL DISTRIBUTION WIDTH 15.7 % (11.5-14.5); WHITE BLOOD COUNT 8.3 10^3/ul (4.8-10.8)
--- NOTE | 2016-09-26 19:23 | RADRPT ---
PROCEDURE: XR Chest. CLINICAL INDICATION: Trauma. Pain.. TECHNIQUE: Single frontal chest x-ray. COMPARISON: 09/04/2016 FINDINGS: There is acute fracture through the mid-diaphysis of the left humerus with irregular margins, not pr esent on the prior study. There are degenerative changes of bilateral shoulders. Tracheostomy tube tip is at the level of clavicles.. Heart is normal in size. There is hypoventilation with bibasil ar probable atelectasis, unchanged.. There is no pleural effusion. There is no pneumothorax. Powers llic foreign bodies compatible shrapnel overlying the lower left chest.. IMPRESSION: 1. Acute fracture of the mid diaphysis left humerus with irregular margins consistent with patholog ic fracture. 2. Bibasilar atelectasis. 3. Otherwise no change. RPTAT: HMVK .Yuri Eric MD, MD Date Time Electronically viewed and signed by .Yuri Eric MD, on 09/26/2016 19:22 .K/
--- NOTE | 2016-09-26 19:24 | RADRPT ---
PROCEDURE: Left humerus x-ray CLINICAL INDICATION: Pain. Possible fracture TECHNIQUE: AP and lateral views of the left humerus were obtained. COMPARISON: None available FINDINGS: Permeative appearance of the proximal humeral diaphysis is concerning for neoplasm. An acute horizontal fracture through the proximal diaphysis is present with lateral angulation and d isplacement of the distal fragment. There is moderate diffuse mid arm soft tissue swelling. The visualized joints are normal. RPTAT:HJJR IMPRESSION: Acute, closed, mildly displaced laterally angulated possible pathologic fracture of the proximal lef t humerus diaphysis. Physician Curly Date Time Electronically viewed and signed by Physician Curly on 09/26/2016 19:23 /
[2016-09-26] MEDS ORDERED: morphine 2 MG INJ IV PRN (19:30)
[2016-09-26] MEDS ORDERED: NACL 0.9% 3 ML SYG IV SCH (19:30)
[2016-09-26] MEDS ORDERED: ONDANSETRON 4 MG INJ IV PRN (19:30)
[2016-09-26 19:37] LABS: INR 1.01; PROTIME 13.3 Sec (12.2-14.2)
[2016-09-26 19:42] LABS: ALANINE AMINOTRANSFERASE 233 IU/L (13-69); ALBUMIN 4.6 g/dl (3.3-4.9); ALBUMIN/GLOBULIN RATIO 1.09; ALKALINE PHOSPHATASE 417 IU/L (42-121); ANION GAP 10 (8-16); ASPARTATE AMINO TRANSFERASE 110 IU/L (15-46); BILIRUBIN,INDIRECT 0.1 mg/dl (0-1.1); BILIRUBIN,TOTAL 0.1 mg/dl (0.2-1.3); BLOOD UREA NITROGEN 21 mg/dl (7-20); CALCIUM 10.6 mg/dl (8.4-10.2); CARBON DIOXIDE 32 mmol/L (21-31); CHLORIDE 99 mmol/L (97-110); CREATININE 0.79 mg/dl (0.61-1.24); GLUCOSE 89 mg/dl (70-220); POTASSIUM 3.7 mmol/L (3.5-5.1); SODIUM 137 mmol/L (135-144); TOTAL PROTEIN 8.8 g/dl (6.1-8.1)
[2016-09-26] MEDS ORDERED: HYDR-906 GTB (19:45)
[2016-09-26] MEDS ORDERED: TUBE5VIA3 ID (19:48)
[2016-09-26 19:59] LABS: TROPONIN-I < 0.012 ng/ml (0.00-0.12)
[2016-09-26 23:40] VITALS: TEMP 98.3
[2016-09-27 01:00] VITALS: BP 139/75; PULSE 77; RESP 18
[2016-09-27] MEDS: FAMOTIDINE 20 MG INJ IV SCH ×3 (02:20→20:44)
[2016-09-27] MEDS: SOD CHLORIDE 0.9% 1,000 ML IV SCH ×3 (02:26→12:57)
[2016-09-27 06:09] LABS: ADD SCAN DIFF NO
[2016-09-27 06:55] LABS: ALBUMIN/GLOBULIN RATIO 1.25; BILIRUBIN,INDIRECT 0.3 mg/dl (0-1.1); BILIRUBIN,TOTAL 0.3 mg/dl (0.2-1.3); CALCIUM 9.8 mg/dl (8.4-10.2); CREATININE 0.79 mg/dl (0.61-1.24); POTASSIUM 3.7 mmol/L (3.5-5.1); TOTAL PROTEIN 7.2 g/dl (6.1-8.1)
[2016-09-27 07:29] VITALS: BP 141/74; RESP 18
[2016-09-27 09:06] LABS: BASOPHILS % 0.4 % (0.0-2.0); EOSINOPHILS # 0.1 10^3/ul (0.0-0.5); EOSINOPHILS % 1.6 % (0.0-7.0); HEMATOCRIT 32.1 % (42.0-52.0); HEMOGLOBIN 10.7 g/dl (14.0-18.0); LYMPHOCYTES # 2.2 10^3/ul (0.8-2.9); LYMPHOCYTES % 31.4 % (15.0-51.0); MEAN CORPUSCULAR HEMOGLOBIN 27.2 pg (29.0-33.0); MEAN CORPUSCULAR HGB CONC 33.3 g/dl (32.0-37.0); MEAN CORPUSCULAR VOLUME 81.7 fl (82.0-101.0); MEAN PLATELET VOLUME 12.4 fl (7.4-10.4); MONOCYTE # 0.8 10^3/ul (0.3-0.9); MONOCYTES % 10.8 % (0.0-11.0); NEUTROPHIL # 3.8 10^3/ul (1.6-7.5); NEUTROPHILS % 55.5 % (39.0-77.0); PLATELET COUNT 403 10^3/UL (140-415); RED BLOOD COUNT 3.93 10^6/ul (4.70-6.10); WHITE BLOOD COUNT 6.9 10^3/ul (4.8-10.8)
[2016-09-27] MEDS: ENOXAPARIN 30 MG/0.3 ML SYG SC SCH (09:17)
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
[2016-09-27] MEDS ORDERED: LISINOPRIL 5 MG TAB GTB SCH (14:00)
[2016-09-27 14:12] VITALS: BP 169/83; RESP 18
[2016-09-27] MEDS: ALBUTEROL/IPRATROPIUM (NEB) 3 ML AMP INH SCH ×2 (16:30→19:25)
[2016-09-27] MEDS: FUROSEMIDE 20 MG TAB GTB SCH (18:32)
[2016-09-27 20:00] VITALS: BP 177/82; RESP 20
[2016-09-27 21:00] VITALS: BP 138/58; PULSE 72
[2016-09-27] MEDS ORDERED: METOPROLOL (XL) 25 MG TAB PO SCH (21:00)
[2016-09-27] MEDS: DEXTROSE 5%-0.45% NACL 1,000 ML IV SCH (23:53)
[2016-09-28 02:00] VITALS: BP 154/93; RESP 20
[2016-09-28] MEDS: FUROSEMIDE 20 MG TAB GTB SCH ×2 (05:40→18:12)
[2016-09-28 06:43] LABS: ADD SCAN DIFF NO
[2016-09-28 06:47] LABS: BASOPHILS % 0.3 % (0.0-2.0); EOSINOPHILS # 0.1 10^3/ul (0.0-0.5); EOSINOPHILS % 1.5 % (0.0-7.0); HEMATOCRIT 32.4 % (42.0-52.0); HEMOGLOBIN 10.9 g/dl (14.0-18.0); LYMPHOCYTES # 1.4 10^3/ul (0.8-2.9); MEAN CORPUSCULAR HEMOGLOBIN 27.2 pg (29.0-33.0); MEAN CORPUSCULAR HGB CONC 33.6 g/dl (32.0-37.0); MEAN CORPUSCULAR VOLUME 80.8 fl (82.0-101.0); MEAN PLATELET VOLUME 12.2 fl (7.4-10.4); NEUTROPHIL # 4.4 10^3/ul (1.6-7.5); NEUTROPHILS % 63.9 % (39.0-77.0); PLATELET COUNT 401 10^3/UL (140-415); RED BLOOD COUNT 4.01 10^6/ul (4.70-6.10); RED CELL DISTRIBUTION WIDTH 15.9 % (11.5-14.5); WHITE BLOOD COUNT 6.9 10^3/ul (4.8-10.8)
[2016-09-28 07:18] LABS: CALCIUM 9.5 mg/dl (8.4-10.2); CREATININE 0.66 mg/dl (0.61-1.24); POTASSIUM 3.7 mmol/L (3.5-5.1)
[2016-09-28 07:24] LABS: CHOL/HDL RATIO 3.2 RATIO
[2016-09-28 07:58] VITALS: BP 137/76; RESP 18
[2016-09-28] MEDS: ALBUTEROL/IPRATROPIUM (NEB) 3 ML AMP INH SCH ×4 (08:52→20:44)
[2016-09-28] MEDS: ASPIRIN 81 MG TAB GTB SCH (09:00)
[2016-09-28] MEDS: ENOXAPARIN 30 MG/0.3 ML SYG SC SCH (09:00)
--- NOTE | 2016-09-28 09:24 | RADRPT ---
Vent Rate: 75 bpm RR Interval: 0 msec PA Interval: 160 msec QRS Duration: 80 msec QT Interval: 418 msec QTC Interval: 466 msec P-R-T [place]: 70 - 35 - 59 degrees Normal sinus rhythm Normal ECG Electronically Signed By: Mehrdad Retana [id number]
--- NOTE | 2016-09-28 09:25 | RADRPT ---
Vent Rate: 88 bpm RR Interval: 0 msec IN Interval: 164 msec QRS Duration: 86 msec QT Interval: 378 msec QTC Interval: 457 msec P-R-T [place]: 82 - 23 - 62 degrees Normal sinus rhythm Normal ECG Electronically Signed By: Mehrdad Retana [id number]
[2016-09-28] MEDS: MULTIVITAMINS/MINERALS TAB PO SCH (09:36)
[2016-09-28] MEDS: ASCORBIC ACID 500 MG TAB GTB SCH (09:36)
[2016-09-28] MEDS: FAMOTIDINE 20 MG INJ IV SCH ×2 (09:36→21:20)
[2016-09-28] MEDS: LISINOPRIL 5 MG TAB GTB SCH (09:36)
[2016-09-28] MEDS: FAMOTIDINE 20 MG TAB GTB SCH (09:37)
[2016-09-28] MEDS: HYDROCODONE/APAP (5/325) TAB GTB PRN (11:12)
[2016-09-28] MEDS ORDERED: REGADENOSON 0.4 MG/5 ML SYG ONE (11:40)
--- NOTE | 2016-09-28 12:38 | CONS ---
Date/Time of Note Date/Time of Note DATE: 09/28/16 TIME: 12:34 Assessment/Plan Assessment/Plan Chief Complaint/Hosp Course IMP: 1.Pre-op-for humeral surgery due to pathological fracture-negative trop x 3 2.HTN 3.CAD 4.Humeral fx 5.breast ca Recc: -Continue asa -Contineu zestril/coreg -Will f/u echo -Pre-op lexiscan today -Pain control Problems: Consultation Date/Type/Reason Admit Date/Time Sep 26, 2016 at 19:28 Initial Consult Date 09/27/2016 Type of Consultation: cardiology Reason for Consultation pre-op Referring Provider: ARNOLDO GUILLAUME MD Exam/Review of Systems Vital Signs Vitals Vital Signs Date Time Temp Pulse Resp B/P Pulse Ox O2 Delivery O2 Flow Rate FiO2 09/28/16 08:52 68 20 98 21 09/28/16 07:58 98.6 137/76 09/27/16 01:00 Room Air Intake and Output 09/27/16 09/27/16 09/28/16 15:00 23:00 07:00 Intake Total 750 ml 400 ml 850 ml Balance 750 ml 400 ml 850 ml Exam Review of Systems: CONSTITUTIONAL: No fevers, chills. PULMONARY: No sob CARDIOVASCULAR: No chest pain/palpitations GASTROINTESTINAL: No nausea/vomiting. GENITOURINARY: No hematuria/dysuria. MUSCULOSKELETAL: No myagias/arthalgias. PSYCHIATRIC: The patient denies depression. NEUROLOGIC: lethargic Constitutional: alert Psych: no complaints Head: normocephalic ENMT: mucosa pink and moist Neck: jvd (9 cm water), supple Respiratory: diminished breath sounds (at bases/B) Cardiovascular: regular rate and rhythm Gastrointestinal: non-tender, soft Extremities: edema (none) Neurological: focal weakness (L sided) Results Result Diagram: 09/28/16 0533 09/28/16 0533 Results 24 hrs Laboratory Tests Test 09/27/16 18:30 09/28/16 00:38 09/28/16 05:33 09/28/16 05:36 Troponin I < 0.012 < 0.012 0.015 White Blood Count 6.9 Red Blood Count 4.01 L Hemoglobin 10.9 L Hematocrit 32.4 L Mean Corpuscular Volume 80.8 L Mean Corpuscular Hemoglobin 27.2 L Mean Corpuscular Hemoglobin Concent 33.6 Red Cell Distribution Width 15.9 H Platelet Count 401 Mean Platelet Volume 12.2 H Neutrophils % 63.9 Lymphocytes % 20.0 Monocytes % 14.0 H Eosinophils % 1.5 Basophils % 0.3 Nucleated Red Blood Cells % 0.0 Neutrophils # 4.4 Lymphocytes # 1.4 Monocytes # 1.0 H Eosinophils # 0.1 Basophils # 0.0 Nucleated Red Blood Cells # 0.0 Sodium Level 146 H Potassium Level 3.7 Chloride Level 105 Carbon Dioxide Level 27 Anion Gap 18 #H Blood Urea Nitrogen 16 Creatinine 0.66 Glucose Level 95 Calcium Level 9.5 Triglycerides Level 68 Cholesterol Level 149 LDL Cholesterol, Calculated 89 HDL Cholesterol 46 Cholesterol/HDL Ratio 3.2 Medications Medications Current Medications Ondansetron HCl (Zofran Inj) 4 mg Q6H PRN IV NAUSEA AND/OR VOMITING; Start at 19:30 Morphine Sulfate (morphine) 2 mg Q4H PRN IV PAIN LEVEL 7-10; Start 09/26/16 at 19:30 Famotidine (Pepcid Iv) 20 mg Q12 IV Last administered on 09/28/16 09:36; Admin Dose 20 MG; Start 09/26/16 at 21:00 Enoxaparin Sodium (Lovenox) 30 mg DAILY SC Last administered on 09/27/16 09:17 ; Admin Dose 30 MG; Start 09/27/16 at 09:00 Ascorbic Acid (Vitamin C) 500 mg DAILY GTB Last administered on 09/28/16 09:36 ; Admin Dose 500 MG; Start 09/28/16 at 09:00 Aspirin (Aspirin) 81 mg DAILY GTB ; Start 09/28/16 at 09:00 Famotidine (Pepcid) 20 mg DAILY GTB Last administered on 09/28/16 09:37; Admin Dose 20 MG; Start 09/28/16 at 09:00 Acetaminophen/ Hydrocodone Bitart ([place] (5/325)) 1 tab Q4H PRN GTB PAIN 4-10/ 10 Last administered on 09/28/16 11:12; Admin Dose 1 TAB; Start 09/27/16 at 14: 00 Lorazepam (Ativan) 0.5 mg Q6 PRN GTB ANXIETY; Start 09/27/16 at 14:00 Multivitamins/ Minerals (Theragran-M) 1 tab DAILY PO Last administered on 09:36; Admin Dose 1 TAB; Start 09/28/16 at 09:00 Lisinopril 5 mg 5 mg DAILY GTB Last administered on 09/28/16 09:36; Admin Dose 5 MG; Start 09/28/16 at 09:00 Dextrose/Sodium Chloride (D5-1/2ns) 1,000 ml @ 50 mls/hr Q20H IV Last administered on 09/27/16 23:53; Admin Dose 50 MLS/HR; Start 09/28/16 at 00:00 Carvedilol (Coreg) 3.125 mg BID GTB Last administered on 09/28/16 09:37; Admin Dose 3.125 MG; Start 09/27/16 at 21:30 SIDNEY FLEMING Sep 28, 2016 12:37
--- NOTE | 2016-09-28 12:47 | RADRPT ---
Echocardiogram Report ADDENDUM Patient Name: NEELIMA MELENDEZ Gender: Male Date: 1945 Study Date: 28-Sep-2016 Crane Operator: Jessi [facility] Location: 626 Ref. Physician: ARNOLDO GUILLAUME Quality: Adequate Procedures: Transthoracic echocardiogram with complete 2D, M-Mode, and doppler examination. Indications: Medical Clearance. 2D/M Mode Doppler Measurement Value Normal Ranges Measurement Value Normal Ranges LVIDd 2D 4.5 3.5 - 5.6 cm AV Peak Sukhdev 2.0 m/sec LVIDs 2D 3.3 2.1 - 4.1 cm AV Peak PG 16.0 mmHg FS 2D 27.7 % LVOT Peak Sukhdev 0.8 m/sec LVPWd 2D 1.3 0.6 - 1.1 cm LVOT Peak PG 3.0 mmHg IVSd 2D 1.3 0.6 - 1.1 cm MV E Peak Sukhdev 0.7 m/sec IVS/LVPW 2D 1.0 MV A Peak Sukhdev 0.9 m/sec AoR Diam 2D 3.0 2.0 - 3.7 cm MV E/A 0.8 LA/Ao 2D 1 0 - 1 MV Decel Time 218 msec EDV 2D 91.7 cm3 MV E/A 0.8 ESV 2D 34.6 cm3 LA Dimen 2D 3.4 2.3 - 4.0 cm Findings Left Ventricle: Lower limits of normal systolic function. Normal left ventricular cavity size. Mild concentric left ventricular hypertrophy. Ejection fraction is visually estimated at 5055 %. Tissue Doppler/Mitral Doppler indices are consistent with impaired relaxation (Stage I diastolic dysfunction). Right Ventricle: Normal right ventricular size. Normal right ventricular systolic function. Left Atrium: The left atrium is normal in size. Right Atrium: The right atrium is normal in size. Mitral Valve: Mitral valve leaflets appear mildly thickened. Mild mitral annular calcification. Trace mitral regurgitation. Aortic Valve: No significant aortic stenosis or insufficiency. Aortic sclerosis without stenosis. Tricuspid Valve: Normal appearance of the tricuspid valve. Unable to obtain RVSP due to minimal presence of tricuspid regurgitation. There is trace tricuspid regurgitation. Pericardium: Normal pericardium with no significant pericardial effusion. Aorta: Normal aortic root. IVC: Normal size and normal respiratory collapse consistent with normal right atrial pressure. Conclusions Left ventricular systolic function at tghe lower limits of normal. Normal left ventricular cavity size. Mild concentric left ventricular hypertrophy. Ejection fraction is visually estimated at 50-55 %. Tissue Doppler/Mitral Doppler indices are consistent with impaired relaxation (Stage I diastolic dysfunction). Mitral valve leaflets appear mildly thickened. Mild mitral annular calcification. Trace mitral regurgitation. Normal appearance of the tricuspid valve. Unable to obtain RVSP due to minimal presence of tricuspid regurgitation. There is trace tricuspid regurgitation. Electronically Signed By: Shamar Zayas 29-Sep-2016 14:04:31 -0700 [ADDENDUM] Patient Name: NEELIMA MELENDEZ Study Date: 28-Sep-2016 [id number]
--- NOTE | 2016-09-28 14:30 | RADRPT ---
PROCEDURE: Nuclear medicine myocardial stress and rest scan. CLINICAL INDICATION: Chest pain. Preoperative. TECHNIQUE: The patient was stressed with 0.4 mg IV Lexiscan. 9.9 mCi technetium 99m Tetrofosmin ( Myoview) was administered rest. 30.8 mCi technetium 99m Tetrofosmin (Myoview) was administered dur ing stress. Images were obtained and reconstructed in the short axis, horizontal long axis, and roslyn tical long axis. Gated images were obtained and ejection fraction was calculated. COMPARISON: No prior study is available for comparison. FINDINGS: The stress and rest images demonstrate normal uptake throughout. There is no fixed abnormality or r eversible abnormality. There is no evidence of transient ischemic dilatation. Wall motion is normal. There is normal wall thickening during systole. Ejection fraction at stress is 48%. IMPRESSION: 1. No evidence of stress induced myocardial ischemia. 2. Ejection fraction at stress is 48%. RPTAT: QQ .Rolan Patel MD, Date Time Electronically viewed and signed by .Rolan Patel MD, on 09/28/2016 14:29 .R/
--- NOTE | 2016-09-28 14:55 | PN ---
Date/Time of Note Date/Time of Note DATE: 09/28/16 TIME: 14:54 Assessment/Plan VTE Prophylaxis VTE Prophylaxis Intervention: other Lines/Catheters IV Catheter Type (from Nrs): Peripheral IV Urinary Cath still in place: No Assessment/Plan Assessment/Plan -Closed left humeral fracture, continue morphine as needed for pain. Dr. Manuel is asked to see patient in orthopedic surgery consultation. - plan for sx tomorrow -cardiology clearance pending -G-tube displacement status post tube insertion. - Status post mechanical fall. - Metastatic breast cancer, status post right mastectomy. Patient is not a candidate for chemotherapy. - Transaminitis - Anemia, no indication for blood transfusion. - History of CVA with left-sided hemiplegia. - Hypertension, continue Coreg and lisinopril. - COPD - Tracheostomy, currently capped. - History of left leg fracture Further recommendations based on clinical course. Plan of care discussed with Dr. Young. Subjective 24 Hr Interval Summary Cardiovascular: no complaints Gastrointestinal: no complaints Exam/Review of Systems Vital Signs Vitals Vital Signs Date Time Temp Pulse Resp B/P Pulse Ox O2 Delivery O2 Flow Rate FiO2 09/28/16 13:51 72 20 98 21 09/28/16 07:58 98.6 137/76 09/27/16 01:00 Room Air Intake and Output 09/27/16 09/27/16 09/28/16 15:00 23:00 07:00 Intake Total 750 ml 400 ml 850 ml Balance 750 ml 400 ml 850 ml Exam Constitutional: alert, well developed Respiratory: diminished breath sounds Cardiovascular: nl pulses, regular rate and rhythm Gastrointestinal: non-tender, soft Musculoskeletal: other (left humoral fracture) Extremities: normal pulses Neurological: confused Results Result Diagram: 09/28/16 0533 09/28/16 0533 Results 24 hrs Laboratory Tests Test 09/27/16 18:30 09/28/16 00:38 09/28/16 05:33 09/28/16 05:36 Troponin I < 0.012 < 0.012 0.015 White Blood Count 6.9 Red Blood Count 4.01 L Hemoglobin 10.9 L Hematocrit 32.4 L Mean Corpuscular Volume 80.8 L Mean Corpuscular Hemoglobin 27.2 L Mean Corpuscular Hemoglobin Concent 33.6 Red Cell Distribution Width 15.9 H Platelet Count 401 Mean Platelet Volume 12.2 H Neutrophils % 63.9 Lymphocytes % 20.0 Monocytes % 14.0 H Eosinophils % 1.5 Basophils % 0.3 Nucleated Red Blood Cells % 0.0 Neutrophils # 4.4 Lymphocytes # 1.4 Monocytes # 1.0 H Eosinophils # 0.1 Basophils # 0.0 Nucleated Red Blood Cells # 0.0 Sodium Level 146 H Potassium Level 3.7 Chloride Level 105 Carbon Dioxide Level 27 Anion Gap 18 #H Blood Urea Nitrogen 16 Creatinine 0.66 Glucose Level 95 Calcium Level 9.5 Triglycerides Level 68 Cholesterol Level 149 LDL Cholesterol, Calculated 89 HDL Cholesterol 46 Cholesterol/HDL Ratio 3.2 Medications Medications Current Medications Ondansetron HCl (Zofran Inj) 4 mg Q6H PRN IV NAUSEA AND/OR VOMITING; Start at 19:30 Morphine Sulfate (morphine) 2 mg Q4H PRN IV PAIN LEVEL 7-10; Start 09/26/16 at 19:30 Famotidine (Pepcid Iv) 20 mg Q12 IV Last administered on 09/28/16 09:36; Admin Dose 20 MG; Start 09/26/16 at 21:00 Enoxaparin Sodium (Lovenox) 30 mg DAILY SC Last administered on 09/27/16 09:17 ; Admin Dose 30 MG; Start 09/27/16 at 09:00 Ascorbic Acid (Vitamin C) 500 mg DAILY GTB Last administered on 09/28/16 09:36 ; Admin Dose 500 MG; Start 09/28/16 at 09:00 Aspirin (Aspirin) 81 mg DAILY GTB ; Start 09/28/16 at 09:00 Famotidine (Pepcid) 20 mg DAILY GTB Last administered on 09/28/16 09:37; Admin Dose 20 MG; Start 09/28/16 at 09:00 Acetaminophen/ Hydrocodone Bitart ([place] (5/325)) 1 tab Q4H PRN GTB PAIN 4-10/ 10 Last administered on 09/28/16 11:12; Admin Dose 1 TAB; Start 09/27/16 at 14: 00 Lorazepam (Ativan) 0.5 mg Q6 PRN GTB ANXIETY; Start 09/27/16 at 14:00 Multivitamins/ Minerals (Theragran-M) 1 tab DAILY PO Last administered on 09:36; Admin Dose 1 TAB; Start 09/28/16 at 09:00 Lisinopril 5 mg 5 mg DAILY GTB Last administered on 09/28/16 09:36; Admin Dose 5 MG; Start 09/28/16 at 09:00 Dextrose/Sodium Chloride (D5-1/2ns) 1,000 ml @ 50 mls/hr Q20H IV Last administered on 09/27/16 23:53; Admin Dose 50 MLS/HR; Start 09/28/16 at 00:00 Carvedilol (Coreg) 3.125 mg BID GTB Last administered on 09/28/16 09:37; Admin Dose 3.125 MG; Start 09/27/16 at 21:30 BINH WOODRUFF Sep 28, 2016 14:55
[2016-09-28 15:25] VITALS: BP 138/73; RESP 18
[2016-09-28 19:29] LABS: HEMATOCRIT 33.1 % (42.0-52.0); HEMOGLOBIN 11.4 g/dl (14.0-18.0)
[2016-09-28] MEDS: DEXTROSE 5%-0.45% NACL 1,000 ML IV SCH (20:00)
[2016-09-28 20:06] VITALS: BP 135/75; RESP 18
[2016-09-29] VITALS (10 sets, daily range): BP systolic 105–128; BP diastolic 57–73; PULSE 75–86; RESP 18–22
[2016-09-29] MEDS: FUROSEMIDE 20 MG TAB GTB SCH ×2 (05:27→18:46)
[2016-09-29 05:57] LABS: ADD SCAN DIFF NO
[2016-09-29 06:07] LABS: BASOPHILS % 0.4 % (0.0-2.0); EOSINOPHILS # 0.2 10^3/ul (0.0-0.5); EOSINOPHILS % 2.8 % (0.0-7.0); HEMATOCRIT 32.6 % (42.0-52.0); LYMPHOCYTES # 1.7 10^3/ul (0.8-2.9); LYMPHOCYTES % 25.6 % (15.0-51.0); MEAN CORPUSCULAR HEMOGLOBIN 27.2 pg (29.0-33.0); MEAN CORPUSCULAR HGB CONC 33.7 g/dl (32.0-37.0); MEAN CORPUSCULAR VOLUME 80.7 fl (82.0-101.0); MONOCYTES % 15.2 % (0.0-11.0); NEUTROPHIL # 3.8 10^3/ul (1.6-7.5); NEUTROPHILS % 55.9 % (39.0-77.0); PLATELET COUNT 383 10^3/UL (140-415); RED BLOOD COUNT 4.04 10^6/ul (4.70-6.10); RED CELL DISTRIBUTION WIDTH 15.4 % (11.5-14.5); WHITE BLOOD COUNT 6.8 10^3/ul (4.8-10.8)
[2016-09-29 06:11] LABS: CREATININE 0.75 mg/dl (0.61-1.24); POTASSIUM 3.3 mmol/L (3.5-5.1)
--- NOTE | 2016-09-29 08:37 | CONS ---
DATE OF ADMISSION: 09/26/2016 DATE OF CONSULTATION: 09/27/2016 REASON FOR CONSULTATION: Preoperative evaluation. REQUESTING PHYSICIANS: Dr. Dale Young and Dr. Zenon Manuel from the orthopedic surgery department. HISTORY OF PRESENT ILLNESS: Mr. Salinas is a 71-year-old male with a history of a G-tube, prior tracheostomy, now capped; COPD, hypertension, CVA with left-sided hemiplegia, anemia, prior leg fracture, metastatic breast cancer, status post right mastectomy, who presented with complaints of left arm pain, was found to have a fracture. Initially upon arrival, temperature 98.9, blood pressure 136/85, pulse 102, respiratory rate 16, satting 98 percent. Patient's labs: White blood cell count , hemoglobin 12.1, platelet count of 448. Sodium of 137, potassium 3.7, creatinine 0.79, BUN 21. AST 110, ALT 233, alk phos 417. Troponin negative. INR of 1.0. The patient underwent a humeral x-ray revealing acute closed, mildly displaced, laterally angulated, possible pathologic fracture of the proximal left humerus. The patient then underwent a chest x-ray revealing acute fracture of the mid diaphysis, left humerus, with irregular margins consistent with pathologic fracture, atelectasis; otherwise, no change. The patient does not have an electrocardiogram in the chart for my review at this time. Patient has been admitted to the floor and since admit to the floor he has had some elevated blood pressures, most recently 160s. Patient denies chest pain, shortness of breath. PAST MEDICAL HISTORY: As above in HPI. MEDICATION: Currently in the hospital, vitamin C, aspirin 81 mg daily, carvedilol 3.125 mg p.o. b.i.d., Lasix 20 mg p.o. b.i.d., Duoneb, Zestril 2.5 mg daily, Ativan 0.5 mg q.6, Lovenox subcu daily, Pepcid 20 mg IV q.12, IV fluid hydration 100 cc an hour, and morphine p.r.n. ALLERGIES: CODEINE. SOCIAL HISTORY: Prior tobacco. Social EtOH. No illicit drug use. FAMILY HISTORY: No history of sudden cardiac or early CAD. REVIEW OF SYSTEMS: As above in HPI. CONSTITUTIONAL: No fevers, chills. RESPIRATORY: History of COPD, shortness of breath CARDIOVASCULAR: No current chest pain. GASTROINTESTINAL: No vomiting. Status post G-tube. GENITOURINARY: No hematuria. MUSCULOSKELETAL: Arm fracture. PSYCHIATRIC: No documented psych history. NEUROLOGIC: History of CVA. HEMATOLOGIC/ONCOLOGIC: History of breast CA. PHYSICAL EXAMINATION: VITAL SIGNS: Temperature of 98.5, blood pressure 169/83, pulse 77, respiration 18, satting 98 percent. GENERAL APPEARANCE: The patient is alert, awake. No acute distress. NECK: JVP approximately 9 cm of water. CHEST: Fair air movement throughout with mildly decreased breath sounds at the bases bilaterally. CARDIAC: Regular rate and rhythm. Normal S1, S2. 1/6 systolic murmur. Nondisplaced PMI. ABDOMEN: Positive bowel sounds. Soft. EXTREMITIES: No pitting edema. 1+ pulses bilateral posterior tibial. NEUROLOGIC: Left-sided hemiplegia. LABORATORY: Most recent one today. White blood cell count 6.9, hemoglobin 10.7, platelet count of 403. Sodium 136, potassium 3.7, creatinine 0.79, BUN 21. AST 323, ALT of 518, alk phos 388. INR of 1.0. IMAGING STUDIES: As above in HPI. No further images are reviewed at this time. ELECTROCARDIOGRAM: As above in HPI. No further electrocardiograms are reviewed at this time. IMPRESSION: 1. Preoperative evaluation prior to surgery for a possible pathologic fracture of the left humerus. 2. Hypertension. 3. Possible coronary artery disease on medications. 4. Left humeral fracture status post fall. 5. History of community-acquired pneumonia. 6. Dysphagia, status post gastrostomy tube. 7. History of respiratory failure, status post tracheostomy, now capped. 8. Increased LFTs. 9. Anemia. RECOMMENDATIONS: 1. At this time, would check serial EKGs to assess for any ongoing change, EKG in the morning. EKG for complaints of chest pain, change in rhythm. 2. Complete to rule out for myocardial infarction, ensure the patient is not having any recent acute coronary syndrome in anticipation of upcoming of surgery. 3. Check a 2D echo to further assess patient's ejection fraction, wall motion and any major valvular abnormalities. 4. Continue the patient's current aspirin to provide cardiac management. Continue patient's beta mojgan. We will change to beta-1 selective beta mojgan so as not to provoke any bronchospasms. 5. COPD. Continue patient's Zestril with up-titration to improve overall systolic blood pressure control. 6. Continue the patient's Lasix diuresis as patient is on treatment for it. 7. Severe cardiomyopathy. I believe this the patient may have low EF by echo and given multiple cardiac risk factors, may benefit from pre-op stress test if possible, and thus we will attempt to schedule this for first thing in the morning. 8. Ongoing orthopedic evaluation and the possible need for surgery. Thank you for allowing me to partake in the care of this patient. I will continue to follow along very closely with you. Further recommendations will be made as patient progresses throughout his inpatient hospital and clinical course. Dictated By: Georgia Nazario /scott/bjorn /Document#: [id number] CC: Dale Young MD;*End*
[2016-09-29] MEDS: ALBUTEROL/IPRATROPIUM (NEB) 3 ML AMP INH SCH ×4 (08:50→20:25)
[2016-09-29] MEDS: ENOXAPARIN 30 MG/0.3 ML SYG SC SCH (09:00)
[2016-09-29] MEDS: ASPIRIN 81 MG TAB GTB SCH (09:00)
[2016-09-29] MEDS: FAMOTIDINE 20 MG TAB GTB SCH (09:40)
[2016-09-29] MEDS: MULTIVITAMINS/MINERALS TAB PO SCH (09:40)
[2016-09-29] MEDS: FAMOTIDINE 20 MG INJ IV SCH ×2 (09:40→21:31)
[2016-09-29] MEDS: LISINOPRIL 5 MG TAB GTB SCH (09:41)
[2016-09-29] MEDS: ASCORBIC ACID 500 MG TAB GTB SCH (09:41)
[2016-09-29] MEDS: HYDROCODONE/APAP (5/325) TAB GTB PRN (11:25)
--- NOTE | 2016-09-29 12:34 | PN ---
Date/Time of Note Date/Time of Note DATE: 09/29/16 TIME: 12:33 Assessment/Plan VTE Prophylaxis VTE Prophylaxis Intervention: other Lines/Catheters IV Catheter Type (from Nrs): [place] Lock Urinary Cath still in place: No Assessment/Plan Assessment/Plan -Hypokalemia-replace potassium, BMP a.m. --Closed left humeral fracture, continue morphine as needed for pain. Dr. Manuel is asked to see patient in orthopedic surgery consultation. - plan for sx tomorrow -cardiology clearance pending -G-tube displacement status post tube insertion. - Status post mechanical fall. - Metastatic breast cancer, status post right mastectomy. Patient is not a candidate for chemotherapy. - Transaminitis - Anemia, no indication for blood transfusion. - History of CVA with left-sided hemiplegia. - Hypertension, continue Coreg and lisinopril. - COPD - Tracheostomy, currently capped. - History of left leg fracture Further recommendations based on clinical course. Plan of care discussed with Dr. Young. Subjective 24 Hr Interval Summary Constitutional: requiring O2 Respiratory: no complaints Cardiovascular: no complaints Gastrointestinal: no complaints Musculoskeletal: no complaints Exam/Review of Systems Vital Signs Vitals Vital Signs Date Time Temp Pulse Resp B/P Pulse Ox O2 Delivery O2 Flow Rate FiO2 09/29/16 10:52 98.3 75 18 119/67 98 Room Air 09/29/16 08:51 21 Intake and Output 09/28/16 09/28/16 09/29/16 15:00 23:00 07:00 Intake Total 650 ml 600 ml Balance 650 ml 600 ml Results Result Diagram: 09/29/16 0459 09/29/16 0459 Results 24 hrs Laboratory Tests Test 09/28/16 19:05 09/29/16 04:59 Hemoglobin 11.4 L 11.0 L Hematocrit 33.1 L 32.6 L White Blood Count 6.8 Red Blood Count 4.04 L Mean Corpuscular Volume 80.7 L Mean Corpuscular Hemoglobin 27.2 L Mean Corpuscular Hemoglobin Concent 33.7 Red Cell Distribution Width 15.4 H Platelet Count 383 Mean Platelet Volume 12.0 H Neutrophils % 55.9 Lymphocytes % 25.6 Monocytes % 15.2 H Eosinophils % 2.8 Basophils % 0.4 Nucleated Red Blood Cells % 0.0 Neutrophils # 3.8 Lymphocytes # 1.7 Monocytes # 1.0 H Eosinophils # 0.2 Basophils # 0.0 Nucleated Red Blood Cells # 0.0 Sodium Level 145 H Potassium Level 3.3 L Chloride Level 105 Carbon Dioxide Level 28 Anion Gap 15 Blood Urea Nitrogen 16 Creatinine 0.75 Glucose Level 133 Calcium Level 9.0 Medications Medications Current Medications Ondansetron HCl (Zofran Inj) 4 mg Q6H PRN IV NAUSEA AND/OR VOMITING; Start at 19:30 Morphine Sulfate (morphine) 2 mg Q4H PRN IV PAIN LEVEL 7-10 Last administered on 09/29/16 00:28; Admin Dose 2 MG; Start 09/26/16 at 19:30 Famotidine (Pepcid Iv) 20 mg Q12 IV Last administered on 09/29/16 09:40; Admin Dose 20 MG; Start 09/26/16 at 21:00 Enoxaparin Sodium (Lovenox) 30 mg DAILY SC Last administered on 09/27/16 09:17 ; Admin Dose 30 MG; Start 09/27/16 at 09:00 Ascorbic Acid (Vitamin C) 500 mg DAILY GTB Last administered on 09/29/16 09:41 ; Admin Dose 500 MG; Start 09/28/16 at 09:00 Aspirin (Aspirin) 81 mg DAILY GTB ; Start 09/28/16 at 09:00 Famotidine (Pepcid) 20 mg DAILY GTB Last administered on 09/29/16 09:40; Admin Dose 20 MG; Start 09/28/16 at 09:00 Acetaminophen/ Hydrocodone Bitart ([place] (5/325)) 1 tab Q4H PRN GTB PAIN 4-10/ 10 Last administered on 09/29/16 11:25; Admin Dose 1 TAB; Start 09/27/16 at 14: 00 Lorazepam (Ativan) 0.5 mg Q6 PRN GTB ANXIETY; Start 09/27/16 at 14:00 Multivitamins/ Minerals (Theragran-M) 1 tab DAILY PO Last administered on 09:40; Admin Dose 1 TAB; Start 09/28/16 at 09:00 Lisinopril 5 mg 5 mg DAILY GTB Last administered on 09/29/16 09:41; Admin Dose 5 MG; Start 09/28/16 at 09:00 Dextrose/Sodium Chloride (D5-1/2ns) 1,000 ml @ 50 mls/hr Q20H IV Last administered on 09/27/16 23:53; Admin Dose 50 MLS/HR; Start 09/28/16 at 00:00 Carvedilol (Coreg) 3.125 mg BID GTB Last administered on 09/29/16 09:41; Admin Dose 3.125 MG; Start 09/27/16 at 21:30 BINH WOODRUFF Sep 29, 2016 12:34
--- NOTE | 2016-09-29 12:58 | CONS ---
Date/Time of Note Date/Time of Note DATE: 09/29/16 TIME: 12:54 Assessment/Plan Assessment/Plan Chief Complaint/Hosp Course Assessment 1. Left humeral fracture. Nondisplaced pending orthopedic evaluation and repair. 2. Chronic respiratory failure tracheostomy dislodged by patient. Now replaced. 3. Dysphagia with G-tube pulled out by patient and replaced. 4. 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 Plan 1. Continue tracheostomy site care. 2. Fall precautions 3. Cardiology clearance preop 4. Stable from pulmonary standpoint for orthopedic surgery may require placement on mechanical ventilation for this procedure. 5. May benefit from [facility] once surgery has been performed. Problems: Consultation Date/Type/Reason Admit Date/Time Sep 26, 2016 at 19:28 Date of Consultation: Sep 29, 2016 Type of Consultation: Pulmonary Reason for Consultation Tracheostomy dislodged Hx of Present Illness 71-year-old gentleman with a history of chronic respiratory failure with tracheostomy in place. Came in for evaluation of left arm pain. Found to have nondisplaced fracture of left humerus. Patient is pending orthopedic surgery likely tomorrow. This morning he pulled out his tracheostomy tube with his right arm. This was immediately replaced by respiratory therapy with no evidence of respiratory distress. Currently he remains stable. He has removed his G-tube and tracheostomy in the past. 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 Constitutional: requiring O2 Respiratory: no complaints Cardiovascular: no complaints Gastrointestinal: no complaints Musculoskeletal: no complaints Psychological: no complaints Past Medical History Tracheostomy Chronic hypoxemic respiratory failure History of CVA with hemiplegia Essential hypertension Breast cancer per chart Social History Smoking Status: Never smoker Exam/Review of Systems Vital Signs Vitals Vital Signs Date Time Temp Pulse Resp B/P Pulse Ox O2 Delivery O2 Flow Rate FiO2 09/29/16 12:50 98.9 69 18 121/73 99 09/29/16 10:52 Room Air 09/29/16 08:51 21 Intake and Output 09/28/16 09/28/16 09/29/16 15:00 23:00 07:00 Intake Total 650 ml 600 ml Balance 650 ml 600 ml Exam PHYSICAL EXAMINATION GENERAL: Elderly gentleman, comfortable at rest with tracheostomy in place VITAL SIGNS: see below. HEENT: Pupils equal, round, and reactive to light. Trach site clean and intact. CARDIAC: S1, S2, 1/6 systolic ejection murmur CHEST: Diminished air entry bilaterally. ABDOMEN: Mildly distended. Bowel sounds present no guarding or rebound EXTREMITIES: No cyanosis, clubbing edema +1 NEUROLOGIC: Generalized weakness Results Result Diagram: 09/29/16 0459 09/29/16 0459 Results 24 hrs Laboratory Tests Test 09/28/16 19:05 09/29/16 04:59 Hemoglobin 11.4 L 11.0 L Hematocrit 33.1 L 32.6 L White Blood Count 6.8 Red Blood Count 4.04 L Mean Corpuscular Volume 80.7 L Mean Corpuscular Hemoglobin 27.2 L Mean Corpuscular Hemoglobin Concent 33.7 Red Cell Distribution Width 15.4 H Platelet Count 383 Mean Platelet Volume 12.0 H Neutrophils % 55.9 Lymphocytes % 25.6 Monocytes % 15.2 H Eosinophils % 2.8 Basophils % 0.4 Nucleated Red Blood Cells % 0.0 Neutrophils # 3.8 Lymphocytes # 1.7 Monocytes # 1.0 H Eosinophils # 0.2 Basophils # 0.0 Nucleated Red Blood Cells # 0.0 Sodium Level 145 H Potassium Level 3.3 L Chloride Level 105 Carbon Dioxide Level 28 Anion Gap 15 Blood Urea Nitrogen 16 Creatinine 0.75 Glucose Level 133 Calcium Level 9.0 Medications Medications Current Medications Ondansetron HCl (Zofran Inj) 4 mg Q6H PRN IV NAUSEA AND/OR VOMITING; Start at 19:30 Morphine Sulfate (morphine) 2 mg Q4H PRN IV PAIN LEVEL 7-10 Last administered on 09/29/16 00:28; Admin Dose 2 MG; Start 09/26/16 at 19:30 Famotidine (Pepcid Iv) 20 mg Q12 IV Last administered on 09/29/16 09:40; Admin Dose 20 MG; Start 09/26/16 at 21:00 Enoxaparin Sodium (Lovenox) 30 mg DAILY SC Last administered on 09/27/16 09:17 ; Admin Dose 30 MG; Start 09/27/16 at 09:00 Ascorbic Acid (Vitamin C) 500 mg DAILY GTB Last administered on 09/29/16 09:41 ; Admin Dose 500 MG; Start 09/28/16 at 09:00 Aspirin (Aspirin) 81 mg DAILY GTB ; Start 09/28/16 at 09:00 Famotidine (Pepcid) 20 mg DAILY GTB Last administered on 09/29/16 09:40; Admin Dose 20 MG; Start 09/28/16 at 09:00 Acetaminophen/ Hydrocodone Bitart ([place] (5/325)) 1 tab Q4H PRN GTB PAIN 4-10/ 10 Last administered on 09/29/16 11:25; Admin Dose 1 TAB; Start 09/27/16 at 14: 00 Lorazepam (Ativan) 0.5 mg Q6 PRN GTB ANXIETY; Start 09/27/16 at 14:00 Multivitamins/ Minerals (Theragran-M) 1 tab DAILY PO Last administered on 09:40; Admin Dose 1 TAB; Start 09/28/16 at 09:00 Lisinopril 5 mg 5 mg DAILY GTB Last administered on 09/29/16 09:41; Admin Dose 5 MG; Start 09/28/16 at 09:00 Dextrose/Sodium Chloride (D5-1/2ns) 1,000 ml @ 50 mls/hr Q20H IV Last administered on 09/27/16 23:53; Admin Dose 50 MLS/HR; Start 09/28/16 at 00:00 Carvedilol (Coreg) 3.125 mg BID GTB Last administered on 09/29/16 09:41; Admin Dose 3.125 MG; Start 09/27/16 at 21:30 Potassium Chloride (Potassium Chloride Pwd/Soln) 20 meq ONCE ONCE GTB ; Start 09/29/16 at 13:00; Stop 09/29/16 at 13:01 JEFFERSON RAJPUT MD, [facility] Sep 29, 2016 12:58
[2016-09-29] MEDS ORDERED: POTASSIUM CHLORIDE 20 MEQ in SOD CHLORIDE 0.9% 100 ML IVPB ONE (13:00)
[2016-09-29] MEDS ORDERED: POTASSIUM CHLORIDE 20 MEQ POWDER FOR ORAL SOLN GTB ONE (13:00)
--- NOTE | 2016-09-29 14:08 | CONS ---
Date/Time of Note Date/Time of Note DATE: 09/29/16 TIME: 14:05 Assessment/Plan Assessment/Plan Chief Complaint/Hosp Course IMP: 1.Pre-op-for humeral surgery due to pathological fracture-negative trop x 3. Echo EF 50-55. No contraindicated valve lesions. Lexiscan with no ischemia. EF 48%. Thus ok to proceed to surgery at moderate risk without furthher non- invasive evaluation 2.HTN 3.CAD 4.Humeral fx-pathologic 5.breast ca 6. trach s/p self d/c 09/29 am Recc: -Continue asa -Continue zestril/coreg -Pain control -Pnding ortho surgery. Problems: Consultation Date/Type/Reason Admit Date/Time Sep 28, 2016 at 16:35 Initial Consult Date 09/27/2016 Type of Consultation: cardiology Reason for Consultation Pre-op Referring Provider: ARNOLDO GUILLAUME MD Exam/Review of Systems Vital Signs Vitals Vital Signs Date Time Temp Pulse Resp B/P Pulse Ox O2 Delivery O2 Flow Rate FiO2 09/29/16 13:07 75 20 100 09/29/16 12:50 98.9 121/73 99 09/29/16 10:52 Room Air Intake and Output 09/28/16 09/28/16 09/29/16 15:00 23:00 07:00 Intake Total 650 ml 600 ml Balance 650 ml 600 ml Exam Review of Systems: CONSTITUTIONAL: No fevers, chills. PULMONARY: No sob CARDIOVASCULAR: No chest pain/palpitations GASTROINTESTINAL: No nausea/vomiting. GENITOURINARY: No hematuria/dysuria. MUSCULOSKELETAL: No myagias/arthalgias. PSYCHIATRIC: The patient denies depression. NEUROLOGIC: No weakness Constitutional: other (sleeping) Psych: no complaints Head: normocephalic ENMT: mucosa pink and moist Neck: jvd (9 cm water), supple Respiratory: diminished breath sounds Cardiovascular: regular rate and rhythm Gastrointestinal: non-tender, soft Musculoskeletal: muscle weakness (generalized) Extremities: edema (none) Neurological: lethargic Results Result Diagram: 09/29/16 0459 09/29/16 0459 Results 24 hrs Laboratory Tests Test 09/28/16 19:05 09/29/16 04:59 Hemoglobin 11.4 L 11.0 L Hematocrit 33.1 L 32.6 L White Blood Count 6.8 Red Blood Count 4.04 L Mean Corpuscular Volume 80.7 L Mean Corpuscular Hemoglobin 27.2 L Mean Corpuscular Hemoglobin Concent 33.7 Red Cell Distribution Width 15.4 H Platelet Count 383 Mean Platelet Volume 12.0 H Neutrophils % 55.9 Lymphocytes % 25.6 Monocytes % 15.2 H Eosinophils % 2.8 Basophils % 0.4 Nucleated Red Blood Cells % 0.0 Neutrophils # 3.8 Lymphocytes # 1.7 Monocytes # 1.0 H Eosinophils # 0.2 Basophils # 0.0 Nucleated Red Blood Cells # 0.0 Sodium Level 145 H Potassium Level 3.3 L Chloride Level 105 Carbon Dioxide Level 28 Anion Gap 15 Blood Urea Nitrogen 16 Creatinine 0.75 Glucose Level 133 Calcium Level 9.0 Medications Medications Current Medications Ondansetron HCl (Zofran Inj) 4 mg Q6H PRN IV NAUSEA AND/OR VOMITING; Start at 19:30 Morphine Sulfate (morphine) 2 mg Q4H PRN IV PAIN LEVEL 7-10 Last administered on 09/29/16 00:28; Admin Dose 2 MG; Start 09/26/16 at 19:30 Famotidine (Pepcid Iv) 20 mg Q12 IV Last administered on 09/29/16 09:40; Admin Dose 20 MG; Start 09/26/16 at 21:00 Enoxaparin Sodium (Lovenox) 30 mg DAILY SC Last administered on 09/27/16 09:17 ; Admin Dose 30 MG; Start 09/27/16 at 09:00 Ascorbic Acid (Vitamin C) 500 mg DAILY GTB Last administered on 09/29/16 09:41 ; Admin Dose 500 MG; Start 09/28/16 at 09:00 Aspirin (Aspirin) 81 mg DAILY GTB ; Start 09/28/16 at 09:00 Famotidine (Pepcid) 20 mg DAILY GTB Last administered on 09/29/16 09:40; Admin Dose 20 MG; Start 09/28/16 at 09:00 Acetaminophen/ Hydrocodone Bitart ([place] (5/325)) 1 tab Q4H PRN GTB PAIN 4-10/ 10 Last administered on 09/29/16 11:25; Admin Dose 1 TAB; Start 09/27/16 at 14: 00 Lorazepam (Ativan) 0.5 mg Q6 PRN GTB ANXIETY; Start 09/27/16 at 14:00 Multivitamins/ Minerals (Theragran-M) 1 tab DAILY PO Last administered on 09:40; Admin Dose 1 TAB; Start 09/28/16 at 09:00 Lisinopril 5 mg 5 mg DAILY GTB Last administered on 09/29/16 09:41; Admin Dose 5 MG; Start 09/28/16 at 09:00 Dextrose/Sodium Chloride (D5-1/2ns) 1,000 ml @ 50 mls/hr Q20H IV Last administered on 09/27/16 23:53; Admin Dose 50 MLS/HR; Start 09/28/16 at 00:00 Carvedilol (Coreg) 3.125 mg BID GTB Last administered on 09/29/16 09:41; Admin Dose 3.125 MG; Start 09/27/16 at 21:30 SIDNEY FLEMING Sep 29, 2016 14:08
[2016-09-29] MEDS: DEXTROSE 5%-0.45% NACL 1,000 ML IV SCH (16:00)
[2016-09-30] VITALS (23 sets, daily range): BP systolic 108–169; BP diastolic 55–94; PULSE 62–90; RESP 12–23
[2016-09-30] MEDS: DEXTROSE 5%-0.45% NACL 1,000 ML IV SCH (00:46)
[2016-09-30] MEDS: FUROSEMIDE 20 MG TAB GTB SCH ×2 (05:31→20:12)
[2016-09-30 05:32] LABS: ADD SCAN DIFF NO
[2016-09-30 05:36] LABS: BASOPHILS % 0.3 % (0.0-2.0); EOSINOPHILS # 0.2 10^3/ul (0.0-0.5); EOSINOPHILS % 2.7 % (0.0-7.0); HEMATOCRIT 32.3 % (42.0-52.0); HEMOGLOBIN 10.9 g/dl (14.0-18.0); LYMPHOCYTES # 1.8 10^3/ul (0.8-2.9); LYMPHOCYTES % 24.1 % (15.0-51.0); MEAN CORPUSCULAR HEMOGLOBIN 27.3 pg (29.0-33.0); MEAN CORPUSCULAR HGB CONC 33.7 g/dl (32.0-37.0); MEAN CORPUSCULAR VOLUME 80.8 fl (82.0-101.0); MONOCYTE # 0.9 10^3/ul (0.3-0.9); MONOCYTES % 12.4 % (0.0-11.0); NEUTROPHIL # 4.5 10^3/ul (1.6-7.5); NEUTROPHILS % 60.2 % (39.0-77.0); PLATELET COUNT 382 10^3/UL (140-415); RED CELL DISTRIBUTION WIDTH 15.3 % (11.5-14.5); WHITE BLOOD COUNT 7.4 10^3/ul (4.8-10.8)
[2016-09-30 06:11] LABS: CALCIUM 9.1 mg/dl (8.4-10.2); CREATININE 0.75 mg/dl (0.61-1.24); POTASSIUM 3.8 mmol/L (3.5-5.1)
[2016-09-30] MEDS: ALBUTEROL/IPRATROPIUM (NEB) 3 ML AMP INH SCH ×4 (08:07→20:15)
[2016-09-30] MEDS: MULTIVITAMINS/MINERALS TAB PO SCH (09:00)
[2016-09-30] MEDS: ENOXAPARIN 30 MG/0.3 ML SYG SC SCH (09:00)
[2016-09-30] MEDS: ASCORBIC ACID 500 MG TAB GTB SCH (09:00)
[2016-09-30] MEDS: FAMOTIDINE 20 MG TAB GTB SCH (09:00)
[2016-09-30] MEDS: ASPIRIN 81 MG TAB GTB SCH (09:00)
[2016-09-30] MEDS: LISINOPRIL 5 MG TAB GTB SCH (10:13)
[2016-09-30] MEDS: FAMOTIDINE 20 MG INJ IV SCH ×2 (10:17→20:11)
--- NOTE | 2016-09-30 11:38 | CONS ---
Date/Time of Note Date/Time of Note DATE: 09/30/16 TIME: 11:37 Assessment/Plan Assessment/Plan Chief Complaint/Hosp Course IMP: 1.Pre-op-for humeral surgery due to pathological fracture-negative trop x 3. Echo EF 50-55. No contraindicated valve lesions. Lexiscan with no ischemia. EF 48%. Thus ok to proceed to surgery at moderate risk without further non- invasive evaluation 2.HTN 3.CAD 4.Humeral fx-pathologic 5.breast ca 6. trach s/p self d/c 09/29 am Recc: -Continue asa -Continue zestril/coreg -Pain control -Pnding ortho surgery. Problems: Consultation Date/Type/Reason Admit Date/Time Sep 28, 2016 at 16:35 Initial Consult Date 09/27/2016 Type of Consultation: cardiology Reason for Consultation pre-op Referring Provider: ARNOLDO GUILLAUME MD Exam/Review of Systems Vital Signs Vitals Vital Signs Date Time Temp Pulse Resp B/P Pulse Ox O2 Delivery O2 Flow Rate FiO2 09/30/16 10:07 68 121/68 09/30/16 08:23 97.9 18 99 Room Air 09/30/16 08:07 21 Intake and Output 09/29/16 09/29/16 09/30/16 15:00 23:00 07:00 Intake Total 250 ml Balance 250 ml Exam Review of Systems: CONSTITUTIONAL: No fevers, chills. PULMONARY: No sob CARDIOVASCULAR: No chest pain/palpitations GASTROINTESTINAL: No nausea/vomiting. GENITOURINARY: No hematuria/dysuria. MUSCULOSKELETAL: No myagias/arthalgias. PSYCHIATRIC: The patient denies depression. NEUROLOGIC: lethargic Constitutional: other (sleeping, arousable) Psych: no complaints Head: normocephalic ENMT: mucosa pink and moist Neck: jvd (8-9 cm water), supple Respiratory: diminished breath sounds (at bases/B) Cardiovascular: regular rate and rhythm Gastrointestinal: non-tender, soft Musculoskeletal: muscle weakness (generalized) Extremities: edema (none) Neurological: lethargic Results Result Diagram: 09/30/16 0450 09/30/16 0450 Results 24 hrs Laboratory Tests Test 09/30/16 04:50 White Blood Count 7.4 Red Blood Count 4.00 L Hemoglobin 10.9 L Hematocrit 32.3 L Mean Corpuscular Volume 80.8 L Mean Corpuscular Hemoglobin 27.3 L Mean Corpuscular Hemoglobin Concent 33.7 Red Cell Distribution Width 15.3 H Platelet Count 382 Mean Platelet Volume 12.0 H Neutrophils % 60.2 Lymphocytes % 24.1 Monocytes % 12.4 H Eosinophils % 2.7 Basophils % 0.3 Nucleated Red Blood Cells % 0.0 Neutrophils # 4.5 Lymphocytes # 1.8 Monocytes # 0.9 Eosinophils # 0.2 Basophils # 0.0 Nucleated Red Blood Cells # 0.0 Sodium Level 144 Potassium Level 3.8 Chloride Level 104 Carbon Dioxide Level 29 Anion Gap 15 Blood Urea Nitrogen 17 Creatinine 0.75 Glucose Level 103 Calcium Level 9.1 Medications Medications Current Medications Ondansetron HCl (Zofran Inj) 4 mg Q6H PRN IV NAUSEA AND/OR VOMITING; Start at 19:30 Morphine Sulfate (morphine) 2 mg Q4H PRN IV PAIN LEVEL 7-10 Last administered on 09/29/16 00:28; Admin Dose 2 MG; Start 09/26/16 at 19:30 Famotidine (Pepcid Iv) 20 mg Q12 IV Last administered on 09/30/16 10:17; Admin Dose 20 MG; Start 09/26/16 at 21:00 Enoxaparin Sodium (Lovenox) 30 mg DAILY SC Last administered on 09/27/16 09:17 ; Admin Dose 30 MG; Start 09/27/16 at 09:00 Ascorbic Acid (Vitamin C) 500 mg DAILY GTB Last administered on 09/29/16 09:41 ; Admin Dose 500 MG; Start 09/28/16 at 09:00 Aspirin (Aspirin) 81 mg DAILY GTB ; Start 09/28/16 at 09:00 Famotidine (Pepcid) 20 mg DAILY GTB Last administered on 09/29/16 09:40; Admin Dose 20 MG; Start 09/28/16 at 09:00 Acetaminophen/ Hydrocodone Bitart ([place] (5/325)) 1 tab Q4H PRN GTB PAIN 4-10/ 10 Last administered on 09/29/16 11:25; Admin Dose 1 TAB; Start 09/27/16 at 14: 00 Lorazepam (Ativan) 0.5 mg Q6 PRN GTB ANXIETY; Start 09/27/16 at 14:00 Multivitamins/ Minerals (Theragran-M) 1 tab DAILY PO Last administered on 09:40; Admin Dose 1 TAB; Start 09/28/16 at 09:00 Lisinopril 5 mg 5 mg DAILY GTB Last administered on 09/30/16 10:13; Admin Dose 5 MG; Start 09/28/16 at 09:00 Dextrose/Sodium Chloride (D5-1/2ns) 1,000 ml @ 50 mls/hr Q20H IV Last administered on 09/30/16 00:46; Admin Dose 50 MLS/HR; Start 09/28/16 at 00:00 Carvedilol (Coreg) 3.125 mg BID GTB Last administered on 09/30/16 10:14; Admin Dose 3.125 MG; Start 09/27/16 at 21:30 SIDNEY FLEMING Sep 30, 2016 11:38
[2016-09-30] MEDS ORDERED: POLYMYXIN/BACITRACIN 1L IRRIG ONE (14:57)
[2016-09-30] MEDS ORDERED: BUPIVACAINE 0.5% (SDV) 30 ML INJ ONE (14:57)
--- NOTE | 2016-09-30 15:12 | CONS ---
Date/Time of Note Date/Time of Note DATE: 09/30/16 TIME: 15:11 Consult Date/Type/Reason Admit Date/Time Sep 28, 2016 at 16:35 Initial Consult Date 09/29/16 Type of Consultation: Pulmonary Ordering Provider: ARNOLDO GUILLAUME MD Subjective Patient stable this afternoon no new events Objective Vital Signs Date Time Temp Pulse Resp B/P Pulse Ox O2 Delivery O2 Flow Rate FiO2 09/30/16 13:30 98.5 62 16 108/64 100 Room Air 09/30/16 12:48 21 Intake and Output 09/29/16 09/29/16 09/30/16 14:59 22:59 06:59 Intake Total 250 ml Balance 250 ml Exam PHYSICAL EXAMINATION GENERAL: Elderly gentleman, comfortable at rest with tracheostomy in place VITAL SIGNS: see below. HEENT: Pupils equal, round, and reactive to light. Trach site clean and intact. CARDIAC: S1, S2, 1/6 systolic ejection murmur CHEST: Diminished air entry bilaterally. ABDOMEN: Mildly distended. Bowel sounds present no guarding or rebound EXTREMITIES: No cyanosis, clubbing edema +1 NEUROLOGIC: Generalized weakness Results/Medications Result Diagram: 09/30/16 0450 09/30/16 0450 Results 24 hrs Laboratory Tests Test 09/30/16 04:50 White Blood Count 7.4 Red Blood Count 4.00 L Hemoglobin 10.9 L Hematocrit 32.3 L Mean Corpuscular Volume 80.8 L Mean Corpuscular Hemoglobin 27.3 L Mean Corpuscular Hemoglobin Concent 33.7 Red Cell Distribution Width 15.3 H Platelet Count 382 Mean Platelet Volume 12.0 H Neutrophils % 60.2 Lymphocytes % 24.1 Monocytes % 12.4 H Eosinophils % 2.7 Basophils % 0.3 Nucleated Red Blood Cells % 0.0 Neutrophils # 4.5 Lymphocytes # 1.8 Monocytes # 0.9 Eosinophils # 0.2 Basophils # 0.0 Nucleated Red Blood Cells # 0.0 Sodium Level 144 Potassium Level 3.8 Chloride Level 104 Carbon Dioxide Level 29 Anion Gap 15 Blood Urea Nitrogen 17 Creatinine 0.75 Glucose Level 103 Calcium Level 9.1 Medications Current Medications Ondansetron HCl (Zofran Inj) 4 mg Q6H PRN IV NAUSEA AND/OR VOMITING; Start at 19:30 Morphine Sulfate (morphine) 2 mg Q4H PRN IV PAIN LEVEL 7-10 Last administered on 09/29/16 00:28; Admin Dose 2 MG; Start 09/26/16 at 19:30 Famotidine (Pepcid Iv) 20 mg Q12 IV Last administered on 09/30/16 10:17; Admin Dose 20 MG; Start 09/26/16 at 21:00 Enoxaparin Sodium (Lovenox) 30 mg DAILY SC Last administered on 09/27/16 09:17 ; Admin Dose 30 MG; Start 09/27/16 at 09:00 Ascorbic Acid (Vitamin C) 500 mg DAILY GTB Last administered on 09/29/16 09:41 ; Admin Dose 500 MG; Start 09/28/16 at 09:00 Aspirin (Aspirin) 81 mg DAILY GTB ; Start 09/28/16 at 09:00 Famotidine (Pepcid) 20 mg DAILY GTB Last administered on 09/29/16 09:40; Admin Dose 20 MG; Start 09/28/16 at 09:00 Acetaminophen/ Hydrocodone Bitart ([place] (5/325)) 1 tab Q4H PRN GTB PAIN 4-10/ 10 Last administered on 09/29/16 11:25; Admin Dose 1 TAB; Start 09/27/16 at 14: 00 Lorazepam (Ativan) 0.5 mg Q6 PRN GTB ANXIETY; Start 09/27/16 at 14:00 Multivitamins/ Minerals (Theragran-M) 1 tab DAILY PO Last administered on 09:40; Admin Dose 1 TAB; Start 09/28/16 at 09:00 Lisinopril 5 mg 5 mg DAILY GTB Last administered on 09/30/16 10:13; Admin Dose 5 MG; Start 09/28/16 at 09:00 Dextrose/Sodium Chloride (D5-1/2ns) 1,000 ml @ 50 mls/hr Q20H IV Last administered on 09/30/16 00:46; Admin Dose 50 MLS/HR; Start 09/28/16 at 00:00 Carvedilol (Coreg) 3.125 mg BID GTB Last administered on 09/30/16 10:14; Admin Dose 3.125 MG; Start 09/27/16 at 21:30 Assessment/Plan Chief Complaint/Hosp Course Assessment 1. Left humeral fracture. Nondisplaced pending orthopedic evaluation and repair. 2. Chronic respiratory failure tracheostomy dislodged by patient. Now replaced. 3. Dysphagia with G-tube pulled out by patient and replaced. 4. 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 Plan 1. Continue tracheostomy site care. 2. Fall precautions 3. Cardiology clearance preop 4. Stable from pulmonary standpoint for orthopedic surgery may require placement on mechanical ventilation for this procedure. Surgery scheduled for today. 5. May benefit from [facility] once surgery has been performed. Problems: JEFFERSON RAJPUT MD, [facility] Sep 30, 2016 15:12
--- NOTE | 2016-09-30 15:12 | HPN ---
Date/Time of Note Date/Time of Note DATE: 09/30/16 TIME: 15:11 Interval H&P Admission Note Pt. seen H&P reviewed: No system changes MARIO TUBBS MD Sep 30, 2016 15:12
[2016-09-30] MEDS ORDERED: PHENYLephrine (100 MCG/ML) 5ML SYG ONE (15:38)
[2016-09-30] MEDS ORDERED: CEFAZOLIN 1 GM INJ ONE (15:40)
[2016-09-30] MEDS ORDERED: FENTAnyl 50 MCG/ML VIAL ONE (15:59)
[2016-09-30] MEDS ORDERED: ONDANSETRON 4 MG INJ ONE (16:15)
[2016-09-30] MEDS ORDERED: DEXAMETHASONE 4 MG/ML 1 ML INJ ONE (16:16)
--- NOTE | 2016-09-30 17:58 | PN ---
Date/Time of Note Date/Time of Note DATE: 09/30/16 TIME: 17:57 Assessment/Plan VTE Prophylaxis VTE Prophylaxis Intervention: SCD's Lines/Catheters IV [facility] [place] Urinary Cath still in place: No Assessment/Plan Chief Complaint/Hosp Course Patient was taken to surgery Assessment/Plan -Closed left humeral fracture, continue morphine as needed for pain. Dr. Manuel is following in orthopedic surgery consultation. -G-tube displacement status post tube insertion. - Status post mechanical fall. - Metastatic breast cancer, status post right mastectomy. Patient is not a candidate for chemotherapy. - Transaminitis - Anemia, no indication for blood transfusion. - History of CVA with left-sided hemiplegia. - Hypertension, continue Coreg and lisinopril. - COPD - Tracheostomy, currently capped. - History of left leg fracture Further recommendations based on clinical course. Plan of care discussed with Dr. Young. Problems: Exam/Review of Systems Vital Signs Vitals Vital Signs Date Time Temp Pulse Resp B/P Pulse Ox O2 Delivery O2 Flow Rate FiO2 09/30/16 13:30 98.5 62 16 108/64 100 Room Air 09/30/16 12:48 21 Intake and Output 09/29/16 09/29/16 09/30/16 15:00 23:00 07:00 Intake Total 250 ml Balance 250 ml Results Result Diagram: 09/30/16 0450 09/30/16 0450 Results 24 hrs Laboratory Tests Test 09/30/16 04:50 White Blood Count 7.4 Red Blood Count 4.00 L Hemoglobin 10.9 L Hematocrit 32.3 L Mean Corpuscular Volume 80.8 L Mean Corpuscular Hemoglobin 27.3 L Mean Corpuscular Hemoglobin Concent 33.7 Red Cell Distribution Width 15.3 H Platelet Count 382 Mean Platelet Volume 12.0 H Neutrophils % 60.2 Lymphocytes % 24.1 Monocytes % 12.4 H Eosinophils % 2.7 Basophils % 0.3 Nucleated Red Blood Cells % 0.0 Neutrophils # 4.5 Lymphocytes # 1.8 Monocytes # 0.9 Eosinophils # 0.2 Basophils # 0.0 Nucleated Red Blood Cells # 0.0 Sodium Level 144 Potassium Level 3.8 Chloride Level 104 Carbon Dioxide Level 29 Anion Gap 15 Blood Urea Nitrogen 17 Creatinine 0.75 Glucose Level 103 Calcium Level 9.1 Medications Medications Current Medications Ondansetron HCl (Zofran Inj) 4 mg Q6H PRN IV NAUSEA AND/OR VOMITING; Start at 19:30 Morphine Sulfate (morphine) 2 mg Q4H PRN IV PAIN LEVEL 7-10 Last administered on 09/29/16 00:28; Admin Dose 2 MG; Start 09/26/16 at 19:30 Famotidine (Pepcid Iv) 20 mg Q12 IV Last administered on 09/30/16 10:17; Admin Dose 20 MG; Start 09/26/16 at 21:00 Enoxaparin Sodium (Lovenox) 30 mg DAILY SC Last administered on 09/27/16 09:17 ; Admin Dose 30 MG; Start 09/27/16 at 09:00 Ascorbic Acid (Vitamin C) 500 mg DAILY GTB Last administered on 09/29/16 09:41 ; Admin Dose 500 MG; Start 09/28/16 at 09:00 Aspirin (Aspirin) 81 mg DAILY GTB ; Start 09/28/16 at 09:00 Famotidine (Pepcid) 20 mg DAILY GTB Last administered on 09/29/16 09:40; Admin Dose 20 MG; Start 09/28/16 at 09:00 Acetaminophen/ Hydrocodone Bitart ([place] (5/325)) 1 tab Q4H PRN GTB PAIN 4-10/ 10 Last administered on 09/29/16 11:25; Admin Dose 1 TAB; Start 09/27/16 at 14: 00 Lorazepam (Ativan) 0.5 mg Q6 PRN GTB ANXIETY; Start 09/27/16 at 14:00 Multivitamins/ Minerals (Theragran-M) 1 tab DAILY PO Last administered on 09:40; Admin Dose 1 TAB; Start 09/28/16 at 09:00 Lisinopril 5 mg 5 mg DAILY GTB Last administered on 09/30/16 10:13; Admin Dose 5 MG; Start 09/28/16 at 09:00 Dextrose/Sodium Chloride (D5-1/2ns) 1,000 ml @ 50 mls/hr Q20H IV Last administered on 09/30/16 00:46; Admin Dose 50 MLS/HR; Start 09/28/16 at 00:00 Carvedilol (Coreg) 3.125 mg BID GTB Last administered on 09/30/16t 10:14; Admin Dose 3.125 MG; Start 09/27/16 at 21:30 MATTHIAS SALAZAR Sep 30, 2016 17:58
[2016-09-30] MEDS ORDERED: FENTAnyl 50 MCG/ML VIAL IV PRN (18:00)
[2016-09-30] MEDS ORDERED: DIPHENHYDRAMINE 50 MG INJ IV PRN (18:00)
[2016-09-30] MEDS ORDERED: HYDROmorphONE (0.2 MG/ML) 10ML SYG IV PRN (18:00)
[2016-09-30] MEDS ORDERED: PROCHLORPERAZINE 10 MG INJ IV PRN (18:00)
[2016-09-30] MEDS ORDERED: ONDANSETRON 4 MG INJ IV PRN (18:00)
[2016-09-30] MEDS ORDERED: MEPERIDINE 25 MG INJ IV PRN (18:00)
[2016-09-30] MEDS ORDERED: EPHEDrine SULFATE 50 MG/5 ML SYG ONE (18:02)
[2016-09-30] MEDS ORDERED: NACL 0.9% 3 ML SYG IV SCH (18:30)
[2016-09-30] MEDS ORDERED: morphine 2 MG INJ IV PRN (18:30)
[2016-09-30] MEDS: CEFAZOLIN 1 GM/50 ML (PMX) 50 ML IVPB SCH (20:11)
[2016-09-30] MEDS: SOD CHLORIDE 0.9% 1,000 ML IV SCH (20:12)
--- NOTE | 2016-09-30 20:27 | RADRPT ---
PROCEDURE: Left humerus x-ray CLINICAL INDICATION: Postoperative evaluation TECHNIQUE: AP and lateral views of the left humerus were obtained. COMPARISON: 09/26/2016 FINDINGS: No intramedullary patrick through the previously seen left humeral shaft fracture is present. Fracture fragment seen on the prior study are in satisfactory radiographic alignment. Stabilizing horizontal screw through the humeral head is in good position. Skin kaylie overlie the shoulder. The visualized joints are normal. RPTAT:HJJR IMPRESSION: Interval open reduction internal patrick and screw fixation through the proximal diaphyseal fracture of the left humerus as compared to 09/26/2016. Physician Curly Date Time Electronically viewed and signed by Physician Curly on 09/30/2016 20:27 /
--- NOTE | 2016-09-30 20:29 | RADRPT ---
PROCEDURE: Fluoroscopic assistance for open reduction internal fixation left humerus fracture CLINICAL INDICATION: Displaced left humerus fracture TECHNIQUE: A total of 478 seconds fluoroscopic assistance is provided into the supervision of Dr. Manuel and four intraoperative C-arm spot images are submitted to the PACS for review COMPARISON: Left humerus x-ray 09/26/2016 FINDINGS: Initial image demonstrates the displaced fracture of the proximal left humeral diaphysis. The secon d image shows a metallic bar aligning the fracture fragments. The third and fourth images demonstra te the intramedullary patrick through the fracture site. RPTAT:HJJR IMPRESSION: Fluoroscopic assistance for open reduction internal fixation left humerus fracture. Physician Curly Date Time Electronically viewed and signed by Physician Curly on 09/30/2016 20:28 /
[2016-10-01] VITALS (11 sets, daily range): BP systolic 105–161; BP diastolic 57–78; PULSE 80–84; RESP 18–68
[2016-10-01] MEDS: CEFAZOLIN 1 GM/50 ML (PMX) 50 ML IVPB SCH ×2 (02:27→11:18)
[2016-10-01] MEDS: FUROSEMIDE 20 MG TAB GTB SCH ×2 (05:35→18:46)
[2016-10-01] MEDS: SOD CHLORIDE 0.9% 1,000 ML IV SCH ×2 (05:36→17:08)
[2016-10-01] MEDS: ALBUTEROL/IPRATROPIUM (NEB) 3 ML AMP INH SCH ×4 (07:34→20:35)
[2016-10-01] MEDS: DEXTROSE 5%-0.45% NACL 1,000 ML IV SCH (08:00)
[2016-10-01] MEDS: MULTIVITAMINS/MINERALS TAB PO SCH (09:02)
[2016-10-01] MEDS: ASPIRIN 81 MG TAB GTB SCH (09:03)
[2016-10-01] MEDS: FAMOTIDINE 20 MG INJ IV SCH ×2 (09:03→20:50)
[2016-10-01] MEDS: ASCORBIC ACID 500 MG TAB GTB SCH (09:03)
[2016-10-01] MEDS: LISINOPRIL 5 MG TAB GTB SCH (09:03)
[2016-10-01] MEDS: ENOXAPARIN 30 MG/0.3 ML SYG SC SCH (09:05)
--- NOTE | 2016-10-01 12:27 | CONS ---
Date/Time of Note Date/Time of Note DATE: 10/01/16 TIME: 12:25 Consult Date/Type/Reason Admit Date/Time Sep 28, 2016 at 16:35 Initial Consult Date 09/29/16 Type of Consultation: Pulmonary Ordering Provider: ARNOLDO GUILLAUME MD Subjective Status post orthopedic surgery patient remains stable. Objective Vital Signs Date Time Temp Pulse Resp B/P Pulse Ox O2 Delivery O2 Flow Rate FiO2 10/01/16 11:47 77 24 100 Aerosol Mask 4.0 10/01/16 08:00 98.9 105/57 09/30/16 12:48 21 Intake and Output 09/30/16 09/30/16 10/01/16 15:00 23:00 07:00 Intake Total 425 ml 1700 ml 1250 ml Output Total 70 ml Balance 425 ml 1630 ml 1250 ml Results/Medications Result Diagram: 09/30/16 0450 09/30/16 0450 Medications Current Medications Ondansetron HCl (Zofran Inj) 4 mg Q6H PRN IV NAUSEA AND/OR VOMITING; Start at 19:30 Famotidine (Pepcid Iv) 20 mg Q12 IV Last administered on 10/01/16 09:03; Admin Dose 20 MG; Start 09/26/16 at 21:00 Enoxaparin Sodium (Lovenox) 30 mg DAILY SC Last administered on 10/01/16 09:05 ; Admin Dose 30 MG; Start 09/27/16 at 09:00 Ascorbic Acid (Vitamin C) 500 mg DAILY GTB Last administered on 10/01/16 09:03 ; Admin Dose 500 MG; Start 09/28/16 at 09:00 Aspirin (Aspirin) 81 mg DAILY GTB Last administered on 10/01/16 09:03; Admin Dose 81 MG; Start 09/28/16 at 09:00 Lorazepam (Ativan) 0.5 mg Q6 PRN GTB ANXIETY; Start 09/27/16 at 14:00 Multivitamins/ Minerals (Theragran-M) 1 tab DAILY PO Last administered on 09:02; Admin Dose 1 TAB; Start 09/28/16 at 09:00 Lisinopril 5 mg 5 mg DAILY GTB Last administered on 10/01/16 09:03; Admin Dose 5 MG; Start 09/28/16 at 09:00 Dextrose/Sodium Chloride (D5-1/2ns) 1,000 ml @ 50 mls/hr Q20H IV Last administered on 09/30/16 00:46; Admin Dose 50 MLS/HR; Start 09/28/16 at 00:00 Carvedilol 3.125 mg 3.125 mg BID GTB Last administered on 10/01/16 09:03; Admin Dose 3.125 MG; Start 09/27/16 at 21:30 Sodium Chloride (NS) 1,000 ml @ 100 mls/hr Q10H IV Last administered on 05:36; Admin Dose 100 MLS/HR; Start 09/30/16 at 18:05 Morphine Sulfate (morphine) 2 mg Q2H PRN IV PAIN; Start 09/30/16 at 18:30 Acetaminophen/ Hydrocodone Bitart ([place] (5/325)) 1 tab Q3H PRN PO PAIN; Start 09/30/16 at 18:30 Assessment/Plan Chief Complaint/Hosp Course Assessment 1. Left humeral fracture. Nondisplaced status post surgical intervention. 2. Chronic respiratory failure tracheostomy dislodged by patient. Now replaced. Tracheostomy with cuff deflated. 3. Dysphagia with G-tube pulled out by patient and replaced. 4. 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 Continue current Plan 1. Continue tracheostomy site care. 2. Fall precautions 3. Cardiology clearance preop 4. Stable from pulmonary standpoint for orthopedic surgery may require placement on mechanical ventilation for this procedure. Surgery scheduled for today. 5. May benefit from [facility] once surgery has been performed. Problems: JEFFERSON RAJPUT MD, [facility] Oct 01, 2016 12:26
--- NOTE | 2016-10-01 14:03 | CONS ---
Date/Time of Note Date/Time of Note DATE: 10/01/16 TIME: 14:00 Assessment/Plan Assessment/Plan Chief Complaint/Hosp Course IMP: 1.Pre-op-for humeral surgery due to pathological fracture-negative trop x 3. Echo EF 50-55. No contraindicated valve lesions. Lexiscan with no ischemia. EF 48%. Thus ok to proceed to surgery at moderate risk without further non- invasive evaluation. Now POD#1 s/p L UE ORIF of humeral fx 2.HTN 3.CAD 4.Humeral fx-pathologic s/p surgical repair 5.breast ca 6. trach s/p self d/c 7 am Recc: -Continue asa -Continue zestril/coreg -Pain control Problems: Consultation Date/Type/Reason Admit Date/Time Sep 28, 2016 at 16:35 Initial Consult Date 09/27/2016 Type of Consultation: cardiology Reason for Consultation pre-op Referring Provider: ARNOLDO GUILLAUME MD Exam/Review of Systems Vital Signs Vitals Vital Signs Date Time Temp Pulse Resp B/P Pulse Ox O2 Delivery O2 Flow Rate FiO2 10/01/16 13:50 98.0 79 20 120/68 100 10/01/16 11:47 Aerosol Mask 4.0 09/30/16 12:48 21 Intake and Output 09/30/16 09/30/16 10/01/16 15:00 23:00 07:00 Intake Total 425 ml 1700 ml 1250 ml Output Total 70 ml Balance 425 ml 1630 ml 1250 ml Exam Review of Systems: CONSTITUTIONAL: No fevers, chills. PULMONARY: No sob CARDIOVASCULAR: No chest pain/palpitations GASTROINTESTINAL: No nausea/vomiting. GENITOURINARY: No hematuria/dysuria. MUSCULOSKELETAL: No myagias/arthalgias. PSYCHIATRIC: The patient denies depression. NEUROLOGIC: confusion Constitutional: alert Psych: confusion Head: normocephalic ENMT: mucosa pink and moist Neck: jvd, supple Respiratory: diminished breath sounds (at bases/B) Cardiovascular: regular rate and rhythm Gastrointestinal: non-tender, soft Musculoskeletal: muscle tone (normal) Extremities: edema (none), other (arm in sling) Neurological: other (No focal deficits) Results Result Diagram: 09/30/1644909/30/16449 Medications Medications Current Medications Ondansetron HCl (Zofran Inj) 4 mg Q6H PRN IV NAUSEA AND/OR VOMITING; Start at 19:30 Famotidine (Pepcid Iv) 20 mg Q12 IV Last administered on 10/01/16 09:03; Admin Dose 20 MG; Start 09/26/16 at 21:00 Enoxaparin Sodium (Lovenox) 30 mg DAILY SC Last administered on 10/01/16 09:05 ; Admin Dose 30 MG; Start 09/27/16 at 09:00 Ascorbic Acid (Vitamin C) 500 mg DAILY GTB Last administered on 10/01/16 09:03 ; Admin Dose 500 MG; Start 09/28/16 at 09:00 Aspirin (Aspirin) 81 mg DAILY GTB Last administered on 10/01/16 09:03; Admin Dose 81 MG; Start 09/28/16 at 09:00 Lorazepam (Ativan) 0.5 mg Q6 PRN GTB ANXIETY; Start 09/27/16 at 14:00 Multivitamins/ Minerals (Theragran-M) 1 tab DAILY PO Last administered on 09:02; Admin Dose 1 TAB; Start 09/28/16 at 09:00 Lisinopril 5 mg 5 mg DAILY GTB Last administered on 10/01/16 09:03; Admin Dose 5 MG; Start 09/28/16 at 09:00 Dextrose/Sodium Chloride (D5-1/2ns) 1,000 ml @ 50 mls/hr Q20H IV Last administered on 09/30/16 00:46; Admin Dose 50 MLS/HR; Start 09/28/16 at 00:00 Carvedilol 3.125 mg 3.125 mg BID GTB Last administered on 10/01/16 09:03; Admin Dose 3.125 MG; Start 09/27/16 at 21:30 Sodium Chloride (NS) 1,000 ml @ 100 mls/hr Q10H IV Last administered on 05:36; Admin Dose 100 MLS/HR; Start 09/30/16 at 18:05 Morphine Sulfate (morphine) 2 mg Q2H PRN IV PAIN; Start 09/30/16 at 18:30 Acetaminophen/ Hydrocodone Bitart ([place] (5/325)) 1 tab Q3H PRN PO PAIN; Start 09/30/16 at 18:30 SIDNEY FLEMING Oct 01, 2016 14:02
--- NOTE | 2016-10-01 18:33 | PN ---
Date/Time of Note Date/Time of Note DATE: 10/01/16 TIME: 18:27 Assessment/Plan VTE Prophylaxis VTE Prophylaxis Intervention: SCD's Lines/Catheters IV Catheter Type (from Nrs): Peripheral IV Urinary Cath still in place: No Assessment/Plan Chief Complaint/Hosp Course Patient remains hemodynamically stable, status post ORIF of left humerus fracture yesterday, pain is well controlled. Assessment/Plan -Closed left humeral fracture, status post ORIF of left humerus fracture. Dr. Manuel is following in orthopedic surgery consultation. - Chronic respiratory failure secondary tracheostomy dislodged by patient 09/29. Dr. Tyson is following in pulmonology consultation. - G-tube displacement, status new G-tube placement in ER. - Status post mechanical fall. - Metastatic breast cancer, status post right mastectomy. Patient is not a candidate for chemotherapy. - Transaminitis - Anemia, no indication for blood transfusion. - History of CVA with left-sided hemiplegia. - Hypertension, continue Coreg and lisinopril. - COPD - History of left leg fracture Further recommendations based on clinical course. Plan of care discussed with Dr. Young. Problems: Exam/Review of Systems Vital Signs Vitals Vital Signs Date Time Temp Pulse Resp B/P Pulse Ox O2 Delivery O2 Flow Rate FiO2 10/01/16 16:20 87 20 98 Aerosol Mask 2.0 10/01/16 16:00 98.5 132/62 09/30/16 12:48 21 Intake and Output 09/30/16 09/30/16 10/01/16 15:00 23:00 07:00 Intake Total 425 ml 1700 ml 1250 ml Output Total 70 ml Balance 425 ml 1630 ml 1250 ml Exam Constitutional: alert, frail Psych: confusion Head: normocephalic Eyes: nl conjunctiva Neck: non-tender, supple Respiratory: normal air movement, other (Tracheostomy, capped) Cardiovascular: nl pulses Gastrointestinal: non-tender, other (G-tube), soft Musculoskeletal: other (Left shoulder pain) Extremities: Left upper extremity status post surgery Skin: nl turgor Results Result Diagram: 09/30/1644909/30/16 045 Medications Medications Current Medications Ondansetron HCl (Zofran Inj) 4 mg Q6H PRN IV NAUSEA AND/OR VOMITING; Start at 19:30 Famotidine (Pepcid Iv) 20 mg Q12 IV Last administered on 10/01/16 09:03; Admin Dose 20 MG; Start 09/26/16 at 21:00 Enoxaparin Sodium (Lovenox) 30 mg DAILY SC Last administered on 10/01/16 09:05 ; Admin Dose 30 MG; Start 09/27/16 at 09:00 Ascorbic Acid (Vitamin C) 500 mg DAILY GTB Last administered on 10/01/16 09:03 ; Admin Dose 500 MG; Start 09/28/16 at 09:00 Aspirin (Aspirin) 81 mg DAILY GTB Last administered on 10/01/16 09:03; Admin Dose 81 MG; Start 09/28/16 at 09:00 Lorazepam (Ativan) 0.5 mg Q6 PRN GTB ANXIETY; Start 09/27/16 at 14:00 Multivitamins/ Minerals (Theragran-M) 1 tab DAILY PO Last administered on 09:02; Admin Dose 1 TAB; Start 09/28/16 at 09:00 Lisinopril 5 mg 5 mg DAILY GTB Last administered on 10/01/16 09:03; Admin Dose 5 MG; Start 09/28/16 at 09:00 Dextrose/Sodium Chloride (D5-1/2ns) 1,000 ml @ 50 mls/hr Q20H IV Last administered on 09/30/16 00:46; Admin Dose 50 MLS/HR; Start 09/28/16 at 00:00 Carvedilol 3.125 mg 3.125 mg BID GTB Last administered on 10/01/16 09:03; Admin Dose 3.125 MG; Start 09/27/16 at 21:30 Sodium Chloride (NS) 1,000 ml @ 100 mls/hr Q10H IV Last administered on 17:08; Admin Dose 100 MLS/HR; Start 09/30/16 at 18:05 Morphine Sulfate (morphine) 2 mg Q2H PRN IV PAIN; Start 09/30/16 at 18:30 Acetaminophen/ Hydrocodone Bitart ([place] (5/325)) 1 tab Q3H PRN PO PAIN; Start 09/30/16 at 18:30 MATTHIAS SALAZAR Oct 01, 2016 18:33
[2016-10-02] VITALS (16 sets, daily range): BP systolic 120–149; BP diastolic 58–81; PULSE 71–88; RESP 18–28
[2016-10-02] MEDS: DEXTROSE 5%-0.45% NACL 1,000 ML IV SCH (04:00)
[2016-10-02] MEDS: SOD CHLORIDE 0.9% 1,000 ML IV SCH ×3 (04:46→14:57)
[2016-10-02] MEDS: FUROSEMIDE 20 MG TAB GTB SCH ×2 (05:44→17:53)
[2016-10-02 05:53] LABS: ADD SCAN DIFF NO
[2016-10-02 05:58] LABS: BASOPHILS % 0.3 % (0.0-2.0); EOSINOPHILS # 0.3 10^3/ul (0.0-0.5); EOSINOPHILS % 3.2 % (0.0-7.0); HEMATOCRIT 30.1 % (42.0-52.0); LYMPHOCYTES # 1.5 10^3/ul (0.8-2.9); MEAN CORPUSCULAR HEMOGLOBIN 27.2 pg (29.0-33.0); MEAN CORPUSCULAR HGB CONC 33.2 g/dl (32.0-37.0); MEAN PLATELET VOLUME 12.5 fl (7.4-10.4); MONOCYTE # 0.9 10^3/ul (0.3-0.9); MONOCYTES % 11.7 % (0.0-11.0); NEUTROPHIL # 5.1 10^3/ul (1.6-7.5); NEUTROPHILS % 65.4 % (39.0-77.0); PLATELET COUNT 322 10^3/UL (140-415); RED BLOOD COUNT 3.67 10^6/ul (4.70-6.10); RED CELL DISTRIBUTION WIDTH 14.9 % (11.5-14.5); WHITE BLOOD COUNT 7.8 10^3/ul (4.8-10.8)
[2016-10-02 06:13] LABS: CALCIUM 8.6 mg/dl (8.4-10.2); CREATININE 0.63 mg/dl (0.61-1.24); POTASSIUM 3.7 mmol/L (3.5-5.1)
[2016-10-02] MEDS: ALBUTEROL/IPRATROPIUM (NEB) 3 ML AMP INH SCH ×4 (08:16→21:21)
[2016-10-02] MEDS: ASCORBIC ACID 500 MG TAB GTB SCH (09:56)
[2016-10-02] MEDS: FAMOTIDINE 20 MG INJ IV SCH ×2 (09:56→20:20)
[2016-10-02] MEDS: MULTIVITAMINS/MINERALS TAB PO SCH (09:56)
[2016-10-02] MEDS: LISINOPRIL 5 MG TAB GTB SCH (09:57)
[2016-10-02] MEDS: ASPIRIN 81 MG TAB GTB SCH (09:57)
[2016-10-02] MEDS: ENOXAPARIN 30 MG/0.3 ML SYG SC SCH (09:59)
--- NOTE | 2016-10-02 11:48 | CONS ---
Date/Time of Note Date/Time of Note DATE: 10/02/16 TIME: 11:46 Assessment/Plan Assessment/Plan Chief Complaint/Hosp Course IMP: 1.Pre-op-for humeral surgery due to pathological fracture-negative trop x 3. Echo EF 50-55. No contraindicated valve lesions. Lexiscan with no ischemia. EF 48%. Thus ok to proceed to surgery at moderate risk without further non- invasive evaluation. Now POD#1 s/p L UE ORIF of humeral fx 2.HTN 3.CAD 4.Humeral fx-pathologic s/p surgical repair 5.breast ca 6. trach s/p self d/c 716 am Recc: -Continue asa -Continue zestril/coreg -Pain control Problems: Consultation Date/Type/Reason Admit Date/Time Sep 28, 2016 at 16:35 Initial Consult Date 09/27/2016 Type of Consultation: cardiology Reason for Consultation Pre-op/HTN Referring Provider: ARNOLDO GUILLAUME MD Exam/Review of Systems Vital Signs Vitals Vital Signs Date Time Temp Pulse Resp B/P Pulse Ox O2 Delivery O2 Flow Rate FiO2 10/02/16 08:04 80 20 98 Aerosol Mask 2.0 10/02/16 07:59 99.7 140/65 09/30/16 12:48 21 Intake and Output 10/01/16 10/01/16 10/02/16 15:00 23:00 07:00 Intake Total 1200 ml 1000 ml Balance 1200 ml 1000 ml Exam Review of Systems: CONSTITUTIONAL: No fevers, chills. PULMONARY: No sob CARDIOVASCULAR: No chest pain/palpitations GASTROINTESTINAL: No nausea/vomiting. GENITOURINARY: No hematuria/dysuria. MUSCULOSKELETAL: No myagias/arthalgias. PSYCHIATRIC: The patient denies depression. NEUROLOGIC: lethargic Constitutional: other (sleeping, arousable) Psych: no complaints Head: normocephalic ENMT: mucosa pink and moist Neck: jvd (8-9 cm water), supple Respiratory: diminished breath sounds (at bases/B) Cardiovascular: regular rate and rhythm Gastrointestinal: non-tender, soft Musculoskeletal: muscle weakness (generalized) Extremities: edema (none) Neurological: other (NO focal deficits) Results Result Diagram: 10/02/16 0523 10/02/16 0523 Results 24 hrs Laboratory Tests Test 10/02/16 05:23 White Blood Count 7.8 Red Blood Count 3.67 L Hemoglobin 10.0 L Hematocrit 30.1 L Mean Corpuscular Volume 82.0 Mean Corpuscular Hemoglobin 27.2 L Mean Corpuscular Hemoglobin Concent 33.2 Red Cell Distribution Width 14.9 H Platelet Count 322 Mean Platelet Volume 12.5 H Neutrophils % 65.4 Lymphocytes % 19.0 Monocytes % 11.7 H Eosinophils % 3.2 Basophils % 0.3 Nucleated Red Blood Cells % 0.0 Neutrophils # 5.1 Lymphocytes # 1.5 Monocytes # 0.9 Eosinophils # 0.3 Basophils # 0.0 Nucleated Red Blood Cells # 0.0 Sodium Level 144 Potassium Level 3.7 Chloride Level 102 Carbon Dioxide Level 29 Anion Gap 17 H Blood Urea Nitrogen 14 Creatinine 0.63 Glucose Level 97 Calcium Level 8.6 Medications Medications Current Medications Ondansetron HCl (Zofran Inj) 4 mg Q6H PRN IV NAUSEA AND/OR VOMITING; Start at 19:30 Famotidine (Pepcid Iv) 20 mg Q12 IV Last administered on 10/02/16 09:56; Admin Dose 20 MG; Start 09/26/16 at 21:00 Enoxaparin Sodium (Lovenox) 30 mg DAILY SC Last administered on 10/02/16 09:59 ; Admin Dose 30 MG; Start 09/27/16 at 09:00 Ascorbic Acid (Vitamin C) 500 mg DAILY GTB Last administered on 10/02/16 09:56 ; Admin Dose 500 MG; Start 09/28/16 at 09:00 Aspirin (Aspirin) 81 mg DAILY GTB Last administered on 10/02/16 09:57; Admin Dose 81 MG; Start 09/28/16 at 09:00 Lorazepam (Ativan) 0.5 mg Q6 PRN GTB ANXIETY; Start 09/27/16 at 14:00 Multivitamins/ Minerals (Theragran-M) 1 tab DAILY PO Last administered on 09:56; Admin Dose 1 TAB; Start 09/28/16 at 09:00 Lisinopril 5 mg 5 mg DAILY GTB Last administered on 10/02/16 09:57; Admin Dose 5 MG; Start 09/28/16 at 09:00 Dextrose/Sodium Chloride (D5-1/2ns) 1,000 ml @ 50 mls/hr Q20H IV Last administered on 09/30/16 00:46; Admin Dose 50 MLS/HR; Start 09/28/16 at 00:00 Carvedilol 3.125 mg 3.125 mg BID GTB Last administered on 10/02/16 09:58; Admin Dose 3.125 MG; Start 09/27/16 at 21:30 Sodium Chloride (NS) 1,000 ml @ 100 mls/hr Q10H IV Last administered on 04:46; Admin Dose 100 MLS/HR; Start 09/30/16 at 18:05 Morphine Sulfate (morphine) 2 mg Q2H PRN IV PAIN; Start 09/30/16 at 18:30 Acetaminophen/ Hydrocodone Bitart ([place] (5/325)) 1 tab Q3H PRN PO PAIN; Start 09/30/16 at 18:30 SIDNEY FLEMING Oct 02, 2016 11:48
--- NOTE | 2016-10-02 14:18 | CONS ---
Date/Time of Note Date/Time of Note DATE: 10/02/16 TIME: 14:17 Consult Date/Type/Reason Admit Date/Time Sep 28, 2016 at 16:35 Initial Consult Date 09/29/16 Type of Consultation: Pulmonary ICU Ordering Provider: ARNOLDO GUILLAUME MD Subjective Patient comfortable no new events. Objective Vital Signs Date Time Temp Pulse Resp B/P Pulse Ox O2 Delivery O2 Flow Rate FiO2 10/02/16 12:04 79 18 96 Aerosol Mask 2.0 10/02/16 07:59 99.7 140/65 09/30/16 12:48 21 Intake and Output 10/01/16 10/01/16 10/02/16 14:59 22:59 06:59 Intake Total 1200 ml 1000 ml Balance 1200 ml 1000 ml Exam PHYSICAL EXAMINATION GENERAL: Elderly gentleman, comfortable at rest with tracheostomy in place VITAL SIGNS: see below. HEENT: Pupils equal, round, and reactive to light. Trach site clean and intact. CARDIAC: S1, S2, 1/6 systolic ejection murmur CHEST: Diminished air entry bilaterally. ABDOMEN: Mildly distended. Bowel sounds present no guarding or rebound EXTREMITIES: No cyanosis, clubbing edema +1 NEUROLOGIC: Generalized weakness Results/Medications Result Diagram: 10/02/16 0523 10/02/16 0523 Results 24 hrs Laboratory Tests Test 10/02/16 05:23 White Blood Count 7.8 Red Blood Count 3.67 L Hemoglobin 10.0 L Hematocrit 30.1 L Mean Corpuscular Volume 82.0 Mean Corpuscular Hemoglobin 27.2 L Mean Corpuscular Hemoglobin Concent 33.2 Red Cell Distribution Width 14.9 H Platelet Count 322 Mean Platelet Volume 12.5 H Neutrophils % 65.4 Lymphocytes % 19.0 Monocytes % 11.7 H Eosinophils % 3.2 Basophils % 0.3 Nucleated Red Blood Cells % 0.0 Neutrophils # 5.1 Lymphocytes # 1.5 Monocytes # 0.9 Eosinophils # 0.3 Basophils # 0.0 Nucleated Red Blood Cells # 0.0 Sodium Level 144 Potassium Level 3.7 Chloride Level 102 Carbon Dioxide Level 29 Anion Gap 17 H Blood Urea Nitrogen 14 Creatinine 0.63 Glucose Level 97 Calcium Level 8.6 Medications Current Medications Ondansetron HCl (Zofran Inj) 4 mg Q6H PRN IV NAUSEA AND/OR VOMITING; Start at 19:30 Famotidine (Pepcid Iv) 20 mg Q12 IV Last administered on 10/02/16 09:56; Admin Dose 20 MG; Start 09/26/16 at 21:00 Enoxaparin Sodium (Lovenox) 30 mg DAILY SC Last administered on 10/02/16 09:59 ; Admin Dose 30 MG; Start 09/27/16 at 09:00 Ascorbic Acid (Vitamin C) 500 mg DAILY GTB Last administered on 10/02/16 09:56 ; Admin Dose 500 MG; Start 09/28/16 at 09:00 Aspirin (Aspirin) 81 mg DAILY GTB Last administered on 10/02/16 09:57; Admin Dose 81 MG; Start 09/28/16 at 09:00 Lorazepam (Ativan) 0.5 mg Q6 PRN GTB ANXIETY; Start 09/27/16 at 14:00 Multivitamins/ Minerals (Theragran-M) 1 tab DAILY PO Last administered on 09:56; Admin Dose 1 TAB; Start 09/28/16 at 09:00 Lisinopril 5 mg 5 mg DAILY GTB Last administered on 10/02/16 09:57; Admin Dose 5 MG; Start 09/28/16 at 09:00 Dextrose/Sodium Chloride (D5-1/2ns) 1,000 ml @ 50 mls/hr Q20H IV Last administered on 09/30/16 00:46; Admin Dose 50 MLS/HR; Start 09/28/16 at 00:00 Carvedilol 3.125 mg 3.125 mg BID GTB Last administered on 10/02/16 09:58; Admin Dose 3.125 MG; Start 09/27/16 at 21:30 Sodium Chloride (NS) 1,000 ml @ 100 mls/hr Q10H IV Last administered on 04:46; Admin Dose 100 MLS/HR; Start 09/30/16 at 18:05 Morphine Sulfate (morphine) 2 mg Q2H PRN IV PAIN; Start 09/30/16 at 18:30 Acetaminophen/ Hydrocodone Bitart ([place] (5/325)) 1 tab Q3H PRN PO PAIN; Start 09/30/16 at 18:30 Assessment/Plan Chief Complaint/Hosp Course Assessment 1. Left humeral fracture. Nondisplaced status post surgical repair. 2. Chronic respiratory failure tracheostomy dislodged by patient. Now replaced. Tracheostomy with cuff deflated. 3. Dysphagia with G-tube pulled out by patient and replaced. 4. 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 Plan 1. Continue tracheostomy site care. Pulmonary toilet. 2. Fall precautions 3. Cardiology clearance preop 4. Continue orthopedic recommendations postop. 5. DVT and GI prophylaxis. Problems: JEFFERSON RAJPUT MD, [facility] Oct 02, 2016 14:18
--- NOTE | 2016-10-02 16:41 | PN ---
Date/Time of Note Date/Time of Note DATE: 10/02/16 TIME: 16:40 Assessment/Plan VTE Prophylaxis VTE Prophylaxis Intervention: SCD's Lines/Catheters IV [facility] Peripheral IV Urinary Cath still in place: No Assessment/Plan Chief Complaint/Hosp Course Patient remains hemodynamically stable, left upper extremity surgical dressing is slightly saturated asked RN to call Dr. Manuel regarding dressing change. Patient tolerates G-tube feeding well. Assessment/Plan -Closed left humeral fracture, status post ORIF of left humerus fracture. Dr. Manuel is following in orthopedic surgery consultation. - Chronic respiratory failure secondary tracheostomy dislodged by patient 09/29. Dr. Tyson is following in pulmonology consultation. - G-tube displacement, status new G-tube placement in ER. - Status post mechanical fall. - Metastatic breast cancer, status post right mastectomy. Patient is not a candidate for chemotherapy. - Transaminitis - Anemia, no indication for blood transfusion. - History of CVA with left-sided hemiplegia. - Hypertension, continue Coreg and lisinopril. - COPD, continue breathing treatment. - History of left leg fracture Further recommendations based on clinical course. Plan of care discussed with Dr. Young. Problems: Exam/Review of Systems Vital Signs Vitals Vital Signs Date Time Temp Pulse Resp B/P Pulse Ox O2 Delivery O2 Flow Rate FiO2 10/02/16 14:19 97.6 72 20 143/65 100 10/02/16 12:04 Aerosol Mask 2.0 09/30/16 12:48 21 Intake and Output 10/01/16 10/01/16 10/02/16 15:00 23:00 07:00 Intake Total 1200 ml 1000 ml Balance 1200 ml 1000 ml Exam Constitutional: alert, frail Psych: confusion Respiratory: normal air movement, other (Tracheostomy, capped) Cardiovascular: nl pulses Gastrointestinal: non-tender, other (G-tube), soft Extremities: Left upper extremity status post surgery Results Result Diagram: 10/02/16 0523 10/02/16 0523 Results 24 hrs Laboratory Tests Test 10/02/16 05:23 White Blood Count 7.8 Red Blood Count 3.67 L Hemoglobin 10.0 L Hematocrit 30.1 L Mean Corpuscular Volume 82.0 Mean Corpuscular Hemoglobin 27.2 L Mean Corpuscular Hemoglobin Concent 33.2 Red Cell Distribution Width 14.9 H Platelet Count 322 Mean Platelet Volume 12.5 H Neutrophils % 65.4 Lymphocytes % 19.0 Monocytes % 11.7 H Eosinophils % 3.2 Basophils % 0.3 Nucleated Red Blood Cells % 0.0 Neutrophils # 5.1 Lymphocytes # 1.5 Monocytes # 0.9 Eosinophils # 0.3 Basophils # 0.0 Nucleated Red Blood Cells # 0.0 Sodium Level 144 Potassium Level 3.7 Chloride Level 102 Carbon Dioxide Level 29 Anion Gap 17 H Blood Urea Nitrogen 14 Creatinine 0.63 Glucose Level 97 Calcium Level 8.6 Medications Medications Current Medications Ondansetron HCl (Zofran Inj) 4 mg Q6H PRN IV NAUSEA AND/OR VOMITING; Start at 19:30 Famotidine (Pepcid Iv) 20 mg Q12 IV Last administered on 10/02/16 09:56; Admin Dose 20 MG; Start 09/26/16 at 21:00 Enoxaparin Sodium (Lovenox) 30 mg DAILY SC Last administered on 10/02/16 09:59 ; Admin Dose 30 MG; Start 09/27/16 at 09:00 Ascorbic Acid (Vitamin C) 500 mg DAILY GTB Last administered on 10/02/16 09:56 ; Admin Dose 500 MG; Start 09/28/16 at 09:00 Aspirin (Aspirin) 81 mg DAILY GTB Last administered on 10/02/16 09:57; Admin Dose 81 MG; Start 09/28/16 at 09:00 Lorazepam (Ativan) 0.5 mg Q6 PRN GTB ANXIETY; Start 09/27/16 at 14:00 Multivitamins/ Minerals (Theragran-M) 1 tab DAILY PO Last administered on 09:56; Admin Dose 1 TAB; Start 09/28/16 at 09:00 Lisinopril 5 mg 5 mg DAILY GTB Last administered on 10/02/16 09:57; Admin Dose 5 MG; Start 09/28/16 at 09:00 Dextrose/Sodium Chloride (D5-1/2ns) 1,000 ml @ 50 mls/hr Q20H IV Last administered on 09/30/16 00:46; Admin Dose 50 MLS/HR; Start 09/28/16 at 00:00 Carvedilol 3.125 mg 3.125 mg BID GTB Last administered on 10/02/16 09:58; Admin Dose 3.125 MG; Start 09/27/16 at 21:30 Sodium Chloride (NS) 1,000 ml @ 100 mls/hr Q10H IV Last administered on 14:57; Admin Dose 100 MLS/HR; Start 09/30/16 at 18:05 Morphine Sulfate (morphine) 2 mg Q2H PRN IV PAIN; Start 09/30/16 at 18:30 Acetaminophen/ Hydrocodone Bitart ([place] (5/325)) 1 tab Q3H PRN PO PAIN; Start 09/30/16 at 18:30 MATTHIAS SALAZAR Oct 02, 2016 16:41 MATTHIAS SALAZAR Oct 02, 2016 16:41
[2016-10-03] VITALS (12 sets, daily range): BP systolic 125–160; BP diastolic 62–80; PULSE 83–89; RESP 16–20
[2016-10-03] MEDS: SOD CHLORIDE 0.9% 1,000 ML IV SCH ×4 (00:08→21:12)
[2016-10-03 05:45] LABS: ADD SCAN DIFF NO
[2016-10-03 05:47] LABS: BASOPHILS % 0.3 % (0.0-2.0); EOSINOPHILS # 0.3 10^3/ul (0.0-0.5); EOSINOPHILS % 4.2 % (0.0-7.0); HEMATOCRIT 28.4 % (42.0-52.0); HEMOGLOBIN 9.4 g/dl (14.0-18.0); LYMPHOCYTES # 1.5 10^3/ul (0.8-2.9); LYMPHOCYTES % 20.2 % (15.0-51.0); MEAN CORPUSCULAR HEMOGLOBIN 27.2 pg (29.0-33.0); MEAN CORPUSCULAR HGB CONC 33.1 g/dl (32.0-37.0); MEAN CORPUSCULAR VOLUME 82.1 fl (82.0-101.0); MEAN PLATELET VOLUME 11.9 fl (7.4-10.4); MONOCYTES % 13.1 % (0.0-11.0); NEUTROPHIL # 4.7 10^3/ul (1.6-7.5); NEUTROPHILS % 61.8 % (39.0-77.0); PLATELET COUNT 354 10^3/UL (140-415); RED BLOOD COUNT 3.46 10^6/ul (4.70-6.10); RED CELL DISTRIBUTION WIDTH 14.9 % (11.5-14.5); WHITE BLOOD COUNT 7.6 10^3/ul (4.8-10.8)
[2016-10-03] MEDS: FUROSEMIDE 20 MG TAB GTB SCH ×2 (05:48→18:10)
[2016-10-03 06:18] LABS: CREATININE 0.61 mg/dl (0.61-1.24); POTASSIUM 3.8 mmol/L (3.5-5.1)
[2016-10-03] MEDS: ALBUTEROL/IPRATROPIUM (NEB) 3 ML AMP INH SCH ×4 (08:19→20:25)
[2016-10-03] MEDS: ASPIRIN 81 MG TAB GTB SCH (08:34)
[2016-10-03] MEDS: ASCORBIC ACID 500 MG TAB GTB SCH (08:34)
[2016-10-03] MEDS: MULTIVITAMINS/MINERALS TAB PO SCH (08:34)
[2016-10-03] MEDS: LISINOPRIL 5 MG TAB GTB SCH (08:34)
[2016-10-03] MEDS: FAMOTIDINE 20 MG INJ IV SCH (08:34)
[2016-10-03] MEDS: ENOXAPARIN 30 MG/0.3 ML SYG SC SCH (08:49)
--- NOTE | 2016-10-03 10:48 | CARRPT ---
DATE OF PROCEDURE: 09/28/2016 PROCEDURE PERFORMED: Lexiscan Cardiolite stress test, electrocardiogram portion. INDICATION: Preoperative evaluation. FINDINGS: Baseline vital signs, electrocardiogram: Pulse 60, blood pressure 117/66. Electrocardiogram was normal sinus rhythm, rate of 6, normal axis, normal , with diffuse nonspecific ST and T-wave abnormalities and associated PAC. PROCEDURE: Patient underwent standard Lexiscan infusion for 10 seconds followed by radiotracer. Patient's test was stopped at completion of protocol. Maximal achieved blood pressure during the test 108/58. Maximal achieved heart rate during the test 91. FINDINGS: Patient did not develop any new Lexiscan-induced ST or T-wave changes from baseline abnormalities. No documented PVCs or PACs. SYMPTOMS: Patient had no complaints of chest pain or shortness of breath during stress testing. IMPRESSION: 1. No Lexiscan-induced ST or T-wave changes from baseline abnormalities to diagnosis cardiac ischemia. 2. No complaints of chest pain or shortness of breath during stress test. 3. No documented premature ventricular contractions during stress test. 4. Report of nuclear images to follow in a separate dictation. Dictated By: Georgia Nazario /fnt/gj /Document#: [id number] CC: Dale Young MD;*End*
--- NOTE | 2016-10-03 12:13 | CONS ---
Date/Time of Note Date/Time of Note DATE: 10/03/16 TIME: 12:11 Assessment/Plan Assessment/Plan Chief Complaint/Hosp Course IMP: 1.Pre-op-for humeral surgery due to pathological fracture-negative trop x 3. Echo EF 50-55. No contraindicated valve lesions. Lexiscan with no ischemia. EF 48%. Thus ok to proceed to surgery at moderate risk without further non- invasive evaluation. Now POD#2 s/p L UE ORIF of humeral fx 2.HTN 3.CAD 4.Humeral fx-pathologic s/p surgical repair 5.breast ca 6. trach s/p self d/c 716 am Recc: -Continue asa -Continue zestril/coreg -Pain control Problems: Consultation Date/Type/Reason Admit Date/Time Sep 28, 2016 at 16:35 Initial Consult Date 09/27/2016 Type of Consultation: cardiology Reason for Consultation HTN/cad Referring Provider: ARNOLDO GUILLAUME MD Exam/Review of Systems Vital Signs Vitals Vital Signs Date Time Temp Pulse Resp B/P Pulse Ox O2 Delivery O2 Flow Rate FiO2 10/03/16 11:51 98.5 75 18 152/72 100 10/03/16 08:20 Aerosol 5.0 28 Intake and Output 10/02/16 10/02/16 10/03/16 15:00 23:00 07:00 Intake Total 800 ml 400 ml 1100 ml Balance 800 ml 400 ml 1100 ml Exam Review of Systems: CONSTITUTIONAL: No fevers, chills. PULMONARY: No sob CARDIOVASCULAR: No chest pain/palpitations GASTROINTESTINAL: No nausea/vomiting. GENITOURINARY: No hematuria/dysuria. MUSCULOSKELETAL: No myagias/arthalgias. PSYCHIATRIC: The patient denies depression. NEUROLOGIC: lethargic Constitutional: other (sleeping) Psych: no complaints Head: normocephalic ENMT: mucosa pink and moist Neck: jvd (9 cm water), supple Respiratory: diminished breath sounds Cardiovascular: regular rate and rhythm Gastrointestinal: non-tender, soft Musculoskeletal: muscle weakness (generalized) Extremities: other (arm in sling) Neurological: other (No focal deficits) Results Result Diagram: 10/03/16 0526 10/03/16 0526 Results 24 hrs Laboratory Tests Test 10/03/16 05:26 White Blood Count 7.6 Red Blood Count 3.46 L Hemoglobin 9.4 L Hematocrit 28.4 L Mean Corpuscular Volume 82.1 Mean Corpuscular Hemoglobin 27.2 L Mean Corpuscular Hemoglobin Concent 33.1 Red Cell Distribution Width 14.9 H Platelet Count 354 Mean Platelet Volume 11.9 H Neutrophils % 61.8 Lymphocytes % 20.2 Monocytes % 13.1 H Eosinophils % 4.2 Basophils % 0.3 Nucleated Red Blood Cells % 0.0 Neutrophils # 4.7 Lymphocytes # 1.5 Monocytes # 1.0 H Eosinophils # 0.3 Basophils # 0.0 Nucleated Red Blood Cells # 0.0 Sodium Level 143 Potassium Level 3.8 Chloride Level 103 Carbon Dioxide Level 30 Anion Gap 14 Blood Urea Nitrogen 13 Creatinine 0.61 Glucose Level 104 Calcium Level 9.0 Medications Medications Current Medications Ondansetron HCl (Zofran Inj) 4 mg Q6H PRN IV NAUSEA AND/OR VOMITING; Start at 19:30 Famotidine (Pepcid Iv) 20 mg Q12 IV Last administered on 10/03/16 08:34; Admin Dose 20 MG; Start 09/26/16 at 21:00 Enoxaparin Sodium (Lovenox) 30 mg DAILY SC Last administered on 10/03/16 08:49 ; Admin Dose 30 MG; Start 09/27/16 at 09:00 Ascorbic Acid (Vitamin C) 500 mg DAILY GTB Last administered on 10/03/16 08:34 ; Admin Dose 500 MG; Start 09/28/16 at 09:00 Aspirin (Aspirin) 81 mg DAILY GTB Last administered on 10/03/16 08:34; Admin Dose 81 MG; Start 09/28/16 at 09:00 Lorazepam (Ativan) 0.5 mg Q6 PRN GTB ANXIETY; Start 09/27/16 at 14:00 Multivitamins/ Minerals (Theragran-M) 1 tab DAILY PO Last administered on 08:34; Admin Dose 1 TAB; Start 09/28/16 at 09:00 Lisinopril (Zestril) 5 mg DAILY GTB Last administered on 10/03/16 08:34; Admin Dose 5 MG; Start 09/28/16 at 09:00 Carvedilol 3.125 mg 3.125 mg BID GTB Last administered on 10/03/16 08:34; Admin Dose 3.125 MG; Start 09/27/16 at 21:30 Sodium Chloride (NS) 1,000 ml @ 100 mls/hr Q10H IV Last administered on 11:34; Admin Dose 100 MLS/HR; Start 09/30/16 at 18:05 Morphine Sulfate (morphine) 2 mg Q2H PRN IV PAIN; Start 09/30/16 at 18:30 Acetaminophen/ Hydrocodone Bitart ([place] (5/325)) 1 tab Q3H PRN PO PAIN; Start 09/30/16 at 18:30 SIDNEY FLEMING Oct 03, 2016 12:12
--- NOTE | 2016-10-03 14:53 | PN ---
Date/Time of Note Date/Time of Note DATE: 10/03/16 TIME: 14:51 Assessment/Plan VTE Prophylaxis VTE Prophylaxis Intervention: other Lines/Catheters IV [facility] Type [facility] Peripheral IV Urinary Cath still in place: No Assessment/Plan Assessment/Plan -Closed left humeral fracture, 10/01/2016-status post ORIF of left humerus fracture by Dr. Manuel - per orthopedic surgery consultation. - Chronic respiratory failure secondary tracheostomy dislodged by patient 09/29. Dr. Tyson is following in pulmonology consultation. - G-tube displacement, status new G-tube placement in ER. - Status post mechanical fall. - Metastatic breast cancer, status post right mastectomy. Patient is not a candidate for chemotherapy. - Transaminitis - Anemia, no indication for blood transfusion. - History of CVA with left-sided hemiplegia. - Hypertension, continue Coreg and lisinopril. - COPD, continue breathing treatment. - History of left leg fracture Further recommendations based on clinical course. Plan of care discussed with Dr. Young. Subjective 24 Hr Interval Summary Free Text/Dictation resting, awake, afebrile, trach intact, sp left humerus ORIF- DDI - tolerating gt feedings, dw staff. Constitutional: requiring O2 Respiratory: no complaints Cardiovascular: no complaints Gastrointestinal: no complaints Exam/Review of Systems Vital Signs Vitals Vital Signs Date Time Temp Pulse Resp B/P Pulse Ox O2 Delivery O2 Flow Rate FiO2 10/03/16 13:36 98.9 80 18 132/78 100 10/03/16 13:00 Aerosol 5.0 28 Intake and Output 10/02/16 10/02/16 10/03/16 15:00 23:00 07:00 Intake Total 800 ml 400 ml 1100 ml Balance 800 ml 400 ml 1100 ml Exam Constitutional: alert, well developed Psych: nl mood/affect, no complaints Respiratory: clear to auscultation, normal air movement Cardiovascular: nl pulses, regular rate and rhythm Musculoskeletal: other (sp left humerus ORIF-CSM INTACT, DDI ) Extremities: normal pulses Neurological: other Skin: other Results Result Diagram: 10/03/16 0526 10/03/16 0526 Results 24 hrs Laboratory Tests Test 10/03/16 05:26 White Blood Count 7.6 Red Blood Count 3.46 L Hemoglobin 9.4 L Hematocrit 28.4 L Mean Corpuscular Volume 82.1 Mean Corpuscular Hemoglobin 27.2 L Mean Corpuscular Hemoglobin Concent 33.1 Red Cell Distribution Width 14.9 H Platelet Count 354 Mean Platelet Volume 11.9 H Neutrophils % 61.8 Lymphocytes % 20.2 Monocytes % 13.1 H Eosinophils % 4.2 Basophils % 0.3 Nucleated Red Blood Cells % 0.0 Neutrophils # 4.7 Lymphocytes # 1.5 Monocytes # 1.0 H Eosinophils # 0.3 Basophils # 0.0 Nucleated Red Blood Cells # 0.0 Sodium Level 143 Potassium Level 3.8 Chloride Level 103 Carbon Dioxide Level 30 Anion Gap 14 Blood Urea Nitrogen 13 Creatinine 0.61 Glucose Level 104 Calcium Level 9.0 Medications Medications Current Medications Ondansetron HCl (Zofran Inj) 4 mg Q6H PRN IV NAUSEA AND/OR VOMITING; Start at 19:30 Famotidine (Pepcid Iv) 20 mg Q12 IV Last administered on 10/03/16 08:34; Admin Dose 20 MG; Start 09/26/16 at 21:00 Enoxaparin Sodium (Lovenox) 30 mg DAILY SC Last administered on 10/03/16 08:49 ; Admin Dose 30 MG; Start 09/27/16 at 09:00 Ascorbic Acid (Vitamin C) 500 mg DAILY GTB Last administered on 10/03/16 08:34 ; Admin Dose 500 MG; Start 09/28/16 at 09:00 Aspirin (Aspirin) 81 mg DAILY GTB Last administered on 10/03/16 08:34; Admin Dose 81 MG; Start 09/28/16 at 09:00 Lorazepam (Ativan) 0.5 mg Q6 PRN GTB ANXIETY; Start 09/27/16 at 14:00 Multivitamins/ Minerals (Theragran-M) 1 tab DAILY PO Last administered on 08:34; Admin Dose 1 TAB; Start 09/28/16 at 09:00 Lisinopril (Zestril) 5 mg DAILY GTB Last administered on 10/03/16 08:34; Admin Dose 5 MG; Start 09/28/16 at 09:00 Carvedilol 3.125 mg 3.125 mg BID GTB Last administered on 10/03/16 08:34; Admin Dose 3.125 MG; Start 09/27/16 at 21:30 Sodium Chloride (NS) 1,000 ml @ 100 mls/hr Q10H IV Last administered on t 11:34; Admin Dose 100 MLS/HR; Start 09/30/16 at 18:05 Morphine Sulfate (morphine) 2 mg Q2H PRN IV PAIN; Start 09/30/16 at 18:30 Acetaminophen/ Hydrocodone Bitart ([place] (5/325)) 1 tab Q3H PRN PO PAIN; Start 09/30/16 at 18:30 BINH WOODRUFF Oct 03, 2016 14:53
[2016-10-03] MEDS: FAMOTIDINE 20 MG TAB GTB SCH (21:16)
[2016-10-04] VITALS (13 sets, daily range): BP systolic 126–165; BP diastolic 67–81; PULSE 63–94; RESP 16–24
[2016-10-04] MEDS: SOD CHLORIDE 0.9% 1,000 ML IV SCH ×4 (02:05→17:30)
[2016-10-04] MEDS: FUROSEMIDE 20 MG TAB GTB SCH ×2 (05:49→17:40)
[2016-10-04 05:57] LABS: ADD SCAN DIFF NO
[2016-10-04 06:00] LABS: BASOPHILS % 0.5 % (0.0-2.0); EOSINOPHILS # 0.4 10^3/ul (0.0-0.5); EOSINOPHILS % 6.3 % (0.0-7.0); HEMATOCRIT 28.6 % (42.0-52.0); HEMOGLOBIN 9.7 g/dl (14.0-18.0); LYMPHOCYTES # 1.5 10^3/ul (0.8-2.9); LYMPHOCYTES % 24.2 % (15.0-51.0); MEAN CORPUSCULAR HEMOGLOBIN 27.6 pg (29.0-33.0); MEAN CORPUSCULAR HGB CONC 33.9 g/dl (32.0-37.0); MEAN CORPUSCULAR VOLUME 81.5 fl (82.0-101.0); MEAN PLATELET VOLUME 12.4 fl (7.4-10.4); MONOCYTE # 0.8 10^3/ul (0.3-0.9); MONOCYTES % 12.6 % (0.0-11.0); NEUTROPHIL # 3.5 10^3/ul (1.6-7.5); NEUTROPHILS % 56.1 % (39.0-77.0); PLATELET COUNT 363 10^3/UL (140-415); RED BLOOD COUNT 3.51 10^6/ul (4.70-6.10); RED CELL DISTRIBUTION WIDTH 14.7 % (11.5-14.5); WHITE BLOOD COUNT 6.2 10^3/ul (4.8-10.8)
[2016-10-04 06:50] LABS: CALCIUM 9.1 mg/dl (8.4-10.2); CREATININE 0.59 mg/dl (0.61-1.24); POTASSIUM 3.7 mmol/L (3.5-5.1)
[2016-10-04] MEDS: FAMOTIDINE 20 MG TAB GTB SCH ×2 (08:31→20:57)
[2016-10-04] MEDS: MULTIVITAMINS/MINERALS TAB PO SCH (08:31)
[2016-10-04] MEDS: LISINOPRIL 5 MG TAB GTB SCH (08:31)
[2016-10-04] MEDS: ASCORBIC ACID 500 MG TAB GTB SCH (08:31)
[2016-10-04] MEDS: ASPIRIN 81 MG TAB GTB SCH (08:32)
[2016-10-04] MEDS: ALBUTEROL/IPRATROPIUM (NEB) 3 ML AMP INH SCH ×4 (08:40→20:17)
[2016-10-04] MEDS: ENOXAPARIN 30 MG/0.3 ML SYG SC SCH (08:59)
--- NOTE | 2016-10-04 13:52 | CONS ---
Date/Time of Note Date/Time of Note DATE: 10/04/16 TIME: 13:46 Assessment/Plan Assessment/Plan Chief Complaint/Hosp Course IMP: 1.Pre-op-for humeral surgery due to pathological fracture-negative trop x 3. Echo EF 50-55. No contraindicated valve lesions. Lexiscan with no ischemia. EF 48%. Thus ok to proceed to surgery at moderate risk without further non- invasive evaluation. Now POD#3 s/p L UE ORIF of humeral fx 2.HTN 3.CAD 4.Humeral fx-pathologic s/p surgical repair 5.breast ca 6. trach s/p self d/c 7/16 am Recc: -Continue asa -Continue zestril/coreg -Pain control Problems: Consultation Date/Type/Reason Admit Date/Time Sep 28, 2016 at 16:35 Initial Consult Date 09/27/2016 Type of Consultation: cardiology Reason for Consultation pre-op/htn Referring Provider: ARNOLDO GUILLAUME MD Exam/Review of Systems Vital Signs Vitals Vital Signs Date Time Temp Pulse Resp B/P Pulse Ox O2 Delivery O2 Flow Rate FiO2 10/04/16 12:43 97.0 63 23 129/69 100 T Tube 5.0 10/04/16 11:47 28 Intake and Output 10/03/16 10/03/16 10/04/16 15:00 23:00 07:00 Intake Total 1300 ml 1000 ml 1000 ml Balance 1300 ml 1000 ml 1000 ml Exam Review of Systems: CONSTITUTIONAL: No fevers, chills. PULMONARY: No sob CARDIOVASCULAR: No chest pain/palpitations GASTROINTESTINAL: No nausea/vomiting. GENITOURINARY: No hematuria/dysuria. MUSCULOSKELETAL: No myagias/arthalgias. PSYCHIATRIC: The patient denies depression. NEUROLOGIC: No weakness Constitutional: alert, oriented Psych: no complaints Head: normocephalic ENMT: mucosa pink and moist Neck: jvd, supple Respiratory: diminished breath sounds Cardiovascular: regular rate and rhythm Gastrointestinal: non-tender, soft Musculoskeletal: muscle tone (normal) Extremities: edema (none) Neurological: other (no focal deficits) Results Result Diagram: 10/04/16 0501 10/04/16 0501 Results 24 hrs Laboratory Tests Test 10/04/16 05:01 White Blood Count 6.2 Red Blood Count 3.51 L Hemoglobin 9.7 L Hematocrit 28.6 L Mean Corpuscular Volume 81.5 L Mean Corpuscular Hemoglobin 27.6 L Mean Corpuscular Hemoglobin Concent 33.9 Red Cell Distribution Width 14.7 H Platelet Count 363 Mean Platelet Volume 12.4 H Neutrophils % 56.1 Lymphocytes % 24.2 Monocytes % 12.6 H Eosinophils % 6.3 Basophils % 0.5 Neutrophils # 3.5 Lymphocytes # 1.5 Monocytes # 0.8 Eosinophils # 0.4 Basophils # 0.0 Nucleated Red Blood Cells # 0.0 Sodium Level 144 Potassium Level 3.7 Chloride Level 101 Carbon Dioxide Level 30 Anion Gap 17 H Blood Urea Nitrogen 12 Creatinine 0.59 L Glucose Level 96 Calcium Level 9.1 Medications Medications Current Medications Ondansetron HCl (Zofran Inj) 4 mg Q6H PRN IV NAUSEA AND/OR VOMITING; Start at 19:30 Enoxaparin Sodium (Lovenox) 30 mg DAILY SC Last administered on 10/04/16 08:59 ; Admin Dose 30 MG; Start 09/27/16 at 09:00 Ascorbic Acid (Vitamin C) 500 mg DAILY GTB Last administered on 10/04/16 08:31 ; Admin Dose 500 MG; Start 09/28/16 at 09:00 Aspirin (Aspirin) 81 mg DAILY GTB Last administered on 10/04/16 08:32; Admin Dose 81 MG; Start 09/28/16 at 09:00 Lorazepam (Ativan) 0.5 mg Q6 PRN GTB ANXIETY; Start 09/27/16 at 14:00 Multivitamins/ Minerals (Theragran-M) 1 tab DAILY PO Last administered on 08:31; Admin Dose 1 TAB; Start 09/28/16 at 09:00 Lisinopril (Zestril) 5 mg DAILY GTB Last administered on 10/04/16 08:31; Admin Dose 5 MG; Start 09/28/16 at 09:00 Carvedilol 3.125 mg 3.125 mg BID GTB Last administered on 10/04/16 08:32; Admin Dose 3.125 MG; Start 09/27/16 at 21:30 Sodium Chloride (NS) 1,000 ml @ 100 mls/hr Q10H IV Last administered on 05:50; Admin Dose 100 MLS/HR; Start 09/30/16 at 18:05 Morphine Sulfate (morphine) 2 mg Q2H PRN IV PAIN; Start 09/30/16 at 18:30 Acetaminophen/ Hydrocodone Bitart ([place] (5/325)) 1 tab Q3H PRN PO PAIN; Start 09/30/16 at 18:30 Famotidine (Pepcid) 20 mg BID GTB Last administered on 10/04/16t 08:31; Admin Dose 20 MG; Start 10/03/16 at 21:00 SIDNEY FLEMING Oct 04, 2016 13:52
--- NOTE | 2016-10-04 17:01 | PN ---
Date/Time of Note Date/Time of Note DATE: 10/04/16 TIME: 16:58 Assessment/Plan VTE Prophylaxis VTE Prophylaxis Intervention: SCD's Lines/Catheters [facility] Peripheral IV Urinary Cath still in place: No Assessment/Plan Chief Complaint/Hosp Course Patient is comfortable on T-tube via resolved via tracheostomy, saturated surgical dressing, asked nursing again (asked nurse Preston to call Dr. Manuel on Friday due to saturated dressing) to call Dr. Manuel regarding dressing changes instructions. Assessment/Plan -Closed left humeral fracture, status post ORIF of left humerus fracture. Dr. Manuel is following in orthopedic surgery consultation. - Chronic respiratory failure secondary tracheostomy dislodged by patient 09/29. Dr. Tyson is following in pulmonology consultation. - G-tube displacement, status new G-tube placement in ER. - Status post mechanical fall. - Metastatic breast cancer, status post right mastectomy. Patient is not a candidate for chemotherapy. - Transaminitis - Anemia, no indication for blood transfusion. - History of CVA with left-sided hemiplegia. - Hypertension, continue Coreg and lisinopril. - COPD, continue breathing treatment. - History of left leg fracture Further recommendations based on clinical course. Plan of care discussed with Dr. Young. Problems: Exam/Review of Systems Vital Signs Vitals Vital Signs Date Time Temp Pulse Resp B/P Pulse Ox O2 Delivery O2 Flow Rate FiO2 10/04/16 16:39 82 20 98 Aerosol 5.0 28 T Tube 10/04/16 14:00 98.9 149/73 Intake and Output 10/03/16 10/03/16 10/04/16 15:00 23:00 07:00 Intake Total 1300 ml 1000 ml 1000 ml Balance 1300 ml 1000 ml 1000 ml Exam Constitutional: alert, frail Psych: confusion Respiratory: normal air movement, other (Tracheostomy) Cardiovascular: nl pulses Gastrointestinal: non-tender, other (G-tube), soft Extremities: Left upper extremity status post surgery Results Result Diagram: 10/04/16 0501 10/04/16 0501 Results 24 hrs Laboratory Tests Test 10/04/16 05:01 White Blood Count 6.2 Red Blood Count 3.51 L Hemoglobin 9.7 L Hematocrit 28.6 L Mean Corpuscular Volume 81.5 L Mean Corpuscular Hemoglobin 27.6 L Mean Corpuscular Hemoglobin Concent 33.9 Red Cell Distribution Width 14.7 H Platelet Count 363 Mean Platelet Volume 12.4 H Neutrophils % 56.1 Lymphocytes % 24.2 Monocytes % 12.6 H Eosinophils % 6.3 Basophils % 0.5 Neutrophils # 3.5 Lymphocytes # 1.5 Monocytes # 0.8 Eosinophils # 0.4 Basophils # 0.0 Nucleated Red Blood Cells # 0.0 Sodium Level 144 Potassium Level 3.7 Chloride Level 101 Carbon Dioxide Level 30 Anion Gap 17 H Blood Urea Nitrogen 12 Creatinine 0.59 L Glucose Level 96 Calcium Level 9.1 Medications Medications Current Medications Ondansetron HCl (Zofran Inj) 4 mg Q6H PRN IV NAUSEA AND/OR VOMITING; Start at 19:30 Enoxaparin Sodium (Lovenox) 30 mg DAILY SC Last administered on 10/04/16 08:59 ; Admin Dose 30 MG; Start 09/27/16 at 09:00 Ascorbic Acid (Vitamin C) 500 mg DAILY GTB Last administered on 10/04/16 08:31 ; Admin Dose 500 MG; Start 09/28/16 at 09:00 Aspirin (Aspirin) 81 mg DAILY GTB Last administered on 10/04/16 08:32; Admin Dose 81 MG; Start 09/28/16 at 09:00 Lorazepam (Ativan) 0.5 mg Q6 PRN GTB ANXIETY; Start 09/27/16 at 14:00 Multivitamins/ Minerals (Theragran-M) 1 tab DAILY PO Last administered on 08:31; Admin Dose 1 TAB; Start 09/28/16 at 09:00 Lisinopril (Zestril) 5 mg DAILY GTB Last administered on 10/04/16 08:31; Admin Dose 5 MG; Start 09/28/16 at 09:00 Carvedilol 3.125 mg 3.125 mg BID GTB Last administered on 10/04/16 08:32; Admin Dose 3.125 MG; Start 09/27/16 at 21:30 Sodium Chloride (NS) 1,000 ml @ 100 mls/hr Q10H IV Last administered on 05:50; Admin Dose 100 MLS/HR; Start 09/30/16 at 18:05 Morphine Sulfate (morphine) 2 mg Q2H PRN IV PAIN; Start 09/30/16 at 18:30 Acetaminophen/ Hydrocodone Bitart ([place] (5/325)) 1 tab Q3H PRN PO PAIN; Start 09/30/16 at 18:30 Famotidine (Pepcid) 20 mg BID GTB Last administered on 10/04/16t 08:31; Admin Dose 20 MG; Start 10/03/16 at 21:00 MATTHIAS SALAZAR Oct 04, 2016 17:01
[2016-10-05] VITALS (15 sets, daily range): BP systolic 132–168; BP diastolic 65–94; PULSE 77–92; RESP 16–20
[2016-10-05] MEDS: LORAZEPAM 0.5 MG TAB GTB PRN (00:32)
[2016-10-05] MEDS: SOD CHLORIDE 0.9% 1,000 ML IV SCH ×3 (02:00→14:20)
[2016-10-05 06:16] LABS: BASOPHILS % 0.4 % (0.0-2.0); EOSINOPHILS # 0.4 10^3/ul (0.0-0.5); EOSINOPHILS % 7.4 % (0.0-7.0); HEMATOCRIT 28.4 % (42.0-52.0); HEMOGLOBIN 9.7 g/dl (14.0-18.0); LYMPHOCYTES # 1.2 10^3/ul (0.8-2.9); LYMPHOCYTES % 22.3 % (15.0-51.0); MEAN CORPUSCULAR HEMOGLOBIN 27.6 pg (29.0-33.0); MEAN CORPUSCULAR HGB CONC 34.2 g/dl (32.0-37.0); MEAN CORPUSCULAR VOLUME 80.9 fl (82.0-101.0); MEAN PLATELET VOLUME 10.9 fl (7.4-10.4); MONOCYTE # 0.6 10^3/ul (0.3-0.9); MONOCYTES % 12.4 % (0.0-11.0); NEUTROPHIL # 2.9 10^3/ul (1.6-7.5); NEUTROPHILS % 57.1 % (39.0-77.0); PLATELET COUNT 382 10^3/UL (140-415); RED BLOOD COUNT 3.51 10^6/ul (4.70-6.10); RED CELL DISTRIBUTION WIDTH 14.7 % (11.5-14.5); WHITE BLOOD COUNT 5.2 10^3/ul (4.8-10.8)
[2016-10-05] MEDS: FUROSEMIDE 20 MG TAB GTB SCH ×2 (06:42→18:42)
[2016-10-05 06:50] LABS: CALCIUM 9.1 mg/dl (8.4-10.2); CREATININE 0.66 mg/dl (0.61-1.24); POTASSIUM 3.8 mmol/L (3.5-5.1)
[2016-10-05] MEDS: ALBUTEROL/IPRATROPIUM (NEB) 3 ML AMP INH SCH ×4 (08:18→20:37)
[2016-10-05] MEDS: MULTIVITAMINS/MINERALS TAB PO SCH (09:48)
[2016-10-05] MEDS: ASCORBIC ACID 500 MG TAB GTB SCH (09:48)
[2016-10-05] MEDS: FAMOTIDINE 20 MG TAB GTB SCH ×2 (09:48→21:22)
[2016-10-05] MEDS: ASPIRIN 81 MG TAB GTB SCH (09:48)
[2016-10-05] MEDS: LISINOPRIL 5 MG TAB GTB SCH (09:49)
[2016-10-05] MEDS: ENOXAPARIN 30 MG/0.3 ML SYG SC SCH (09:51)
--- NOTE | 2016-10-05 10:21 | PN ---
Date/Time of Note Date/Time of Note DATE: 10/05/16 TIME: 10:15 Assessment/Plan VTE Prophylaxis VTE Prophylaxis Intervention: other Lines/Catheters IV [facility] Type (from [facility] [place] Urinary Cath still in place: No Assessment/Plan Assessment/Plan -Closed left humeral fracture, status post ORIF of left humerus fracture. Dr. Manuel is following in orthopedic surgery consultation. - Chronic respiratory failure secondary tracheostomy dislodged by patient 09/29. Dr. Tyson is following in pulmonology consultation. - G-tube displacement, status new G-tube placement in ER. - Status post mechanical fall. - Metastatic breast cancer, status post right mastectomy. Patient is not a candidate for chemotherapy. - Transaminitis - Anemia, no indication for blood transfusion. - History of CVA with left-sided hemiplegia. - Hypertension, continue Coreg and lisinopril. - COPD, continue breathing treatment. - History of left leg fracture Further recommendations based on clinical course. Plan of care discussed with Dr. Young. Subjective 24 Hr Interval Summary Free Text/Dictation Alert and awake, omfortable on T-tube , follows simple commands agitated at times and pulls his trach but none noticed at present. Discussed with the staff no new events reported overnight. LLE- surgical dressing-dressings dry and intact Constitutional: requiring IVF, requiring O2 Exam/Review of Systems Vital Signs Vitals Vital Signs Date Time Temp Pulse Resp B/P Pulse Ox O2 Delivery O2 Flow Rate FiO2 10/05/16 10:00 98.8 90 18 142/82 100 T Tube 5.0 10/05/16 08:18 28 Intake and Output 10/04/16 10/04/16 10/05/16 15:00 23:00 07:00 Intake Total 2800 ml 2460 ml Balance 2800 ml 2460 ml Exam Constitutional: alert, well developed Respiratory: clear to auscultation Cardiovascular: nl pulses, regular rate and rhythm Gastrointestinal: non-tender, other, soft Neurological: confused Skin: other Results Result Diagram: 10/05/16 0552 10/05/16 0552 Results 24 hrs Laboratory Tests Test 10/05/16 05:52 White Blood Count 5.2 Red Blood Count 3.51 L Hemoglobin 9.7 L Hematocrit 28.4 L Mean Corpuscular Volume 80.9 L Mean Corpuscular Hemoglobin 27.6 L Mean Corpuscular Hemoglobin Concent 34.2 Red Cell Distribution Width 14.7 H Platelet Count 382 Mean Platelet Volume 10.9 H Neutrophils % 57.1 Lymphocytes % 22.3 Monocytes % 12.4 H Eosinophils % 7.4 H Basophils % 0.4 Nucleated Red Blood Cells % 0.0 Neutrophils # 2.9 Lymphocytes # 1.2 Monocytes # 0.6 Eosinophils # 0.4 Basophils # 0.0 Nucleated Red Blood Cells # 0.0 Sodium Level 144 Potassium Level 3.8 Chloride Level 101 Carbon Dioxide Level 31 Anion Gap 16 Blood Urea Nitrogen 13 Creatinine 0.66 Glucose Level 105 Calcium Level 9.1 Medications Medications Current Medications Ondansetron HCl (Zofran Inj) 4 mg Q6H PRN IV NAUSEA AND/OR VOMITING; Start at 19:30 Enoxaparin Sodium (Lovenox) 30 mg DAILY SC Last administered on 10/05/16 09:51 ; Admin Dose 30 MG; Start 09/27/16 at 09:00 Ascorbic Acid (Vitamin C) 500 mg DAILY GTB Last administered on 10/05/16 09:48 ; Admin Dose 500 MG; Start 09/28/16 at 09:00 Aspirin (Aspirin) 81 mg DAILY GTB Last administered on 10/05/16 09:48; Admin Dose 81 MG; Start 09/28/16 at 09:00 Lorazepam (Ativan) 0.5 mg Q6 PRN GTB ANXIETY Last administered on 10/05/16 00: 32; Admin Dose 0.5 MG; Start 09/27/16 at 14:00 Multivitamins/ Minerals (Theragran-M) 1 tab DAILY PO Last administered on 09:48; Admin Dose 1 TAB; Start 09/28/16 at 09:00 Lisinopril (Zestril) 5 mg DAILY GTB Last administered on 10/05/16 09:49; Admin Dose 5 MG; Start 09/28/16 at 09:00 Carvedilol 3.125 mg 3.125 mg BID GTB Last administered on 10/05/16 09:49; Admin Dose 3.125 MG; Start 09/27/16 at 21:30 Sodium Chloride (NS) 1,000 ml @ 100 mls/hr Q10H IV Last administered on 02:00; Admin Dose 100 MLS/HR; Start 09/30/16 at 18:05 Morphine Sulfate (morphine) 2 mg Q2H PRN IV PAIN; Start 09/30/16 at 18:30 Acetaminophen/ Hydrocodone Bitart ([place] (5/325)) 1 tab Q3H PRN PO PAIN; Start 09/30/16 at 18:30 Famotidine (Pepcid) 20 mg BID GTB Last administered on 10/05/16t 09:48; Admin Dose 20 MG; Start 10/03/16 at 21:00 BINH WOODRUFF Oct 05, 2016 10:21
--- NOTE | 2016-10-05 10:57 | OPR ---
DATE OF OPERATION: 09/23/2016 PREOPERATIVE DIAGNOSIS: Pathologic fracture in the proximal shaft of the humerus. POSTOPERATIVE DIAGNOSIS: Pathologic fracture in the proximal shaft of the humerus. OPERATION PERFORMED: Open reduction and internal fixation of the pathologic fracture of the left humerus by intramedullary nailing. ANESTHESIA: General anesthesia. SURGEON: Zenon Manuel MD. OPERATIVE PROCEDURE AND FINDINGS: Under general anesthesia, the patient was placed in supine position upon the operating table. Usual prep and drape was done exposing the left shoulder and left upper extremity. Patient was placed in semi beach-chair position and the C-arm positioned in such a way that the entire length of the left humerus would be visible throughout the procedure. The proximal end of the left humerus, including the area just lateral to the articular surface of the glenohumeral joint was exposed through the radial incision. After splitting the deltoid muscle and opening part of the rotator cuff, the proximal end of the humerus was exposed. Under fluoroscopic monitoring, a guide drill was introduced into the proximal end of the humerus and going down along the proximal shaft, the guide drill was threaded into the distal segment. After confirming satisfactory position of the guide drill, then opening was enlarged with the initial cannulated drill and humeral guide was introduced into the distal fragment. Measurement at this time revealed that the proper length of the intramedullary nail should be 9/7.5 and intramedullary nail in the size of 26 cm. After reaming along the reamer guide, the selected intramedullary device in the size of 9/7.5 x 26 cm was pounded in. After confirming satisfactory position of the intramedullary device and after confirming the satisfactory alignment of the fracture, the intramedullary nail was further stabilized by inserting locking screws. After irrigation and hemostasis, closure of the incision was carried out using 0 Vicryl for muscle and fascia and 2-0 Vicryl for subcutaneous tissues. Final skin closure was carried out with skin kaylie. Usual sterile pressure dressings were applied. The patient tolerated the entire procedure very well and was sent to the recovery area in good condition. Dictated By: Zenon Manuel MD /[email or web address]/bjorn /Document#: [id number]
--- NOTE | 2016-10-05 16:24 | CONS ---
Date/Time of Note Date/Time of Note DATE: 10/05/16 TIME: 16:19 Assessment/Plan Assessment/Plan Additional Assessment/Plan s/p ORIF of humerus HTN CAD Metastatic breast cancer, status post right mastectomy. CVA COPD Hemodynamically stable Continue Lasix Continue Coreg and lisinopril Continue GI and DVT Prophylaxis continue pulmonary toiletry and aspiration precautions Consultation Date/Type/Reason Admit Date/Time Sep 28, 2016 at 16:35 Constitutional: requiring IVF, requiring O2 Respiratory: no complaints Cardiovascular: no complaints Gastrointestinal: no complaints Musculoskeletal: no complaints Psychological: no complaints Social History Smoking Status: Never smoker Exam/Review of Systems Vital Signs Vitals Vital Signs Date Time Temp Pulse Resp B/P Pulse Ox O2 Delivery O2 Flow Rate FiO2 10/05/16 14:00 98.4 78 18 134/77 100 T Tube 5.0 10/05/16 11:59 28 Intake and Output 10/04/16 10/04/16 10/05/16 15:00 23:00 07:00 Intake Total 2800 ml 2460 ml Balance 2800 ml 2460 ml Exam Constitutional: alert Neck: other (trach on high flow) Respiratory: diminished breath sounds Cardiovascular: regular rate and rhythm Gastrointestinal: nl liver, spleen, non-tender, soft Results Result Diagram: 10/05/16 0552 10/05/16 0552 Results 24 hrs Laboratory Tests Test 10/05/16 05:52 White Blood Count 5.2 Red Blood Count 3.51 L Hemoglobin 9.7 L Hematocrit 28.4 L Mean Corpuscular Volume 80.9 L Mean Corpuscular Hemoglobin 27.6 L Mean Corpuscular Hemoglobin Concent 34.2 Red Cell Distribution Width 14.7 H Platelet Count 382 Mean Platelet Volume 10.9 H Neutrophils % 57.1 Lymphocytes % 22.3 Monocytes % 12.4 H Eosinophils % 7.4 H Basophils % 0.4 Nucleated Red Blood Cells % 0.0 Neutrophils # 2.9 Lymphocytes # 1.2 Monocytes # 0.6 Eosinophils # 0.4 Basophils # 0.0 Nucleated Red Blood Cells # 0.0 Sodium Level 144 Potassium Level 3.8 Chloride Level 101 Carbon Dioxide Level 31 Anion Gap 16 Blood Urea Nitrogen 13 Creatinine 0.66 Glucose Level 105 Calcium Level 9.1 Medications Medications Current Medications Ondansetron HCl (Zofran Inj) 4 mg Q6H PRN IV NAUSEA AND/OR VOMITING; Start at 19:30 Enoxaparin Sodium (Lovenox) 30 mg DAILY SC Last administered on 10/05/16 09:51 ; Admin Dose 30 MG; Start 09/27/16 at 09:00 Ascorbic Acid (Vitamin C) 500 mg DAILY GTB Last administered on 10/05/16 09:48 ; Admin Dose 500 MG; Start 09/28/16 at 09:00 Aspirin (Aspirin) 81 mg DAILY GTB Last administered on 10/05/16 09:48; Admin Dose 81 MG; Start 09/28/16 at 09:00 Lorazepam (Ativan) 0.5 mg Q6 PRN GTB ANXIETY Last administered on 10/05/16 00: 32; Admin Dose 0.5 MG; Start 09/27/16 at 14:00 Multivitamins/ Minerals (Theragran-M) 1 tab DAILY PO Last administered on 09:48; Admin Dose 1 TAB; Start 09/28/16 at 09:00 Lisinopril (Zestril) 5 mg DAILY GTB Last administered on 10/05/16 09:49; Admin Dose 5 MG; Start 09/28/16 at 09:00 Carvedilol 3.125 mg 3.125 mg BID GTB Last administered on 10/05/16 09:49; Admin Dose 3.125 MG; Start 09/27/16 at 21:30 Sodium Chloride (NS) 1,000 ml @ 100 mls/hr Q10H IV Last administered on 14:20; Admin Dose 100 MLS/HR; Start 09/30/16 at 18:05 Morphine Sulfate (morphine) 2 mg Q2H PRN IV PAIN; Start 09/30/16 at 18:30 Acetaminophen/ Hydrocodone Bitart ([place] (5/325)) 1 tab Q3H PRN PO PAIN; Start 09/30/16 at 18:30 Famotidine (Pepcid) 20 mg BID GTB Last administered on 10/05/16 09:48; Admin Dose 20 MG; Start 10/03/16 at 21:00 JACE VILLA M.D. Oct 05, 2016 16:24
[2016-10-06] VITALS (15 sets, daily range): BP systolic 117–164; BP diastolic 56–86; PULSE 71–89; RESP 16–20
[2016-10-06] MEDS: SOD CHLORIDE 0.9% 1,000 ML IV SCH ×4 (00:21→20:39)
[2016-10-06] MEDS: FUROSEMIDE 20 MG TAB GTB SCH ×2 (05:53→17:46)
[2016-10-06 06:36] LABS: BASOPHILS % 0.6 % (0.0-2.0); EOSINOPHILS # 0.4 10^3/ul (0.0-0.5); HEMATOCRIT 29.4 % (42.0-52.0); HEMOGLOBIN 9.9 g/dl (14.0-18.0); LYMPHOCYTES # 1.4 10^3/ul (0.8-2.9); LYMPHOCYTES % 28.8 % (15.0-51.0); MEAN CORPUSCULAR HEMOGLOBIN 27.2 pg (29.0-33.0); MEAN CORPUSCULAR HGB CONC 33.7 g/dl (32.0-37.0); MEAN CORPUSCULAR VOLUME 80.8 fl (82.0-101.0); MEAN PLATELET VOLUME 12.3 fl (7.4-10.4); MONOCYTE # 0.7 10^3/ul (0.3-0.9); MONOCYTES % 13.8 % (0.0-11.0); NEUTROPHIL # 2.5 10^3/ul (1.6-7.5); NEUTROPHILS % 49.6 % (39.0-77.0); PLATELET COUNT 415 10^3/UL (140-415); RED BLOOD COUNT 3.64 10^6/ul (4.70-6.10); RED CELL DISTRIBUTION WIDTH 14.7 % (11.5-14.5)
[2016-10-06 07:01] LABS: CALCIUM 8.8 mg/dl (8.4-10.2); CREATININE 0.62 mg/dl (0.61-1.24); POTASSIUM 4.2 mmol/L (3.5-5.1)
[2016-10-06] MEDS: ALBUTEROL/IPRATROPIUM (NEB) 3 ML AMP INH SCH ×4 (07:30→20:47)
[2016-10-06] MEDS: LISINOPRIL 5 MG TAB GTB SCH (09:11)
[2016-10-06] MEDS: MULTIVITAMINS/MINERALS TAB PO SCH (09:11)
[2016-10-06] MEDS: FAMOTIDINE 20 MG TAB GTB SCH ×2 (09:12→20:35)
[2016-10-06] MEDS: ASCORBIC ACID 500 MG TAB GTB SCH (09:12)
[2016-10-06] MEDS: ASPIRIN 81 MG TAB GTB SCH (09:12)
[2016-10-06] MEDS: ENOXAPARIN 30 MG/0.3 ML SYG SC SCH (09:13)
--- NOTE | 2016-10-06 10:25 | PN ---
Date/Time of Note Date/Time of Note DATE: 10/06/16 TIME: 10:24 Assessment/Plan VTE Prophylaxis VTE Prophylaxis Intervention: other Lines/Catheters IV C[facility]ter Type (from [facility]): Peripheral IV Urinary Cath still in place: No Assessment/Plan Assessment/Plan -Closed left humeral fracture, 10/01/2016-status post ORIF of left humerus fracture by Dr. Manuel - per orthopedic surgery consultation. - Chronic respiratory failure secondary tracheostomy dislodged by patient 09/29. Dr. Tyson is following in pulmonology consultation. - G-tube displacement, status new G-tube placement in ER. - Status post mechanical fall. - Metastatic breast cancer, status post right mastectomy. Patient is not a candidate for chemotherapy. - Transaminitis - Anemia, no indication for blood transfusion. - History of CVA with left-sided hemiplegia. - Hypertension, continue Coreg and lisinopril. - COPD, continue breathing treatment. - History of left leg fracture Further recommendations based on clinical course. Plan of care discussed with Dr. Young. Subjective 24 Hr Interval Summary Free Text/Dictation nad. Alert and awake, afebrile, comfortable on T-tube , follows simple commands agitated at times, pulls his trach,Discussed with the staff no new events reported overnight. LLE- surgical dressing-dressings dry and intact Constitutional: requiring O2 Exam/Review of Systems Vital Signs Vitals Vital Signs Date Time Temp Pulse Resp B/P Pulse Ox O2 Delivery O2 Flow Rate FiO2 10/06/16 08:00 98.6 18 164/86 100 T Tube 10/06/16 07:30 77 28 10/06/16 04:59 5.0 Intake and Output 10/05/16 10/05/16 10/06/16 15:00 23:00 07:00 Intake Total 700 ml 1500 ml 2600 ml Balance 700 ml 1500 ml 2600 ml Exam Constitutional: alert, well developed Respiratory: clear to auscultation, normal air movement Cardiovascular: nl pulses, regular rate and rhythm Gastrointestinal: non-tender, other, soft Musculoskeletal: other Extremities: normal pulses Neurological: confused Results Result Diagram: 10/06/16 0531 10/06/16 0531 Results 24 hrs Laboratory Tests Test 10/06/16 05:31 White Blood Count 5.0 Red Blood Count 3.64 L Hemoglobin 9.9 L Hematocrit 29.4 L Mean Corpuscular Volume 80.8 L Mean Corpuscular Hemoglobin 27.2 L Mean Corpuscular Hemoglobin Concent 33.7 Red Cell Distribution Width 14.7 H Platelet Count 415 Mean Platelet Volume 12.3 H Neutrophils % 49.6 Lymphocytes % 28.8 Monocytes % 13.8 H Eosinophils % 7.0 Basophils % 0.6 Nucleated Red Blood Cells % 0.0 Neutrophils # 2.5 Lymphocytes # 1.4 Monocytes # 0.7 Eosinophils # 0.4 Basophils # 0.0 Nucleated Red Blood Cells # 0.0 Sodium Level 144 Potassium Level 4.2 Chloride Level 103 Carbon Dioxide Level 30 Anion Gap 15 Blood Urea Nitrogen 15 Creatinine 0.62 Glucose Level 94 Calcium Level 8.8 Medications Medications Current Medications Ondansetron HCl (Zofran Inj) 4 mg Q6H PRN IV NAUSEA AND/OR VOMITING; Start at 19:30 Enoxaparin Sodium (Lovenox) 30 mg DAILY SC Last administered on 10/06/16 09:13 ; Admin Dose 30 MG; Start 09/27/16 at 09:00 Ascorbic Acid (Vitamin C) 500 mg DAILY GTB Last administered on 10/06/16 09:12 ; Admin Dose 500 MG; Start 09/28/16 at 09:00 Aspirin (Aspirin) 81 mg DAILY GTB Last administered on 10/06/16 09:12; Admin Dose 81 MG; Start 09/28/16 at 09:00 Lorazepam (Ativan) 0.5 mg Q6 PRN GTB ANXIETY Last administered on 10/05/16 00: 32; Admin Dose 0.5 MG; Start 09/27/16 at 14:00 Multivitamins/ Minerals (Theragran-M) 1 tab DAILY PO Last administered on 09:11; Admin Dose 1 TAB; Start 09/28/16 at 09:00 Lisinopril (Zestril) 5 mg DAILY GTB Last administered on 10/06/16 09:11; Admin Dose 5 MG; Start 09/28/16 at 09:00 Carvedilol 3.125 mg 3.125 mg BID GTB Last administered on 10/06/16 09:12; Admin Dose 3.125 MG; Start 09/27/16 at 21:30 Sodium Chloride (NS) 1,000 ml @ 100 mls/hr Q10H IV Last administered on 00:21; Admin Dose 100 MLS/HR; Start 09/30/16 at 18:05 Morphine Sulfate (morphine) 2 mg Q2H PRN IV PAIN; Start 09/30/16 at 18:30 Acetaminophen/ Hydrocodone Bitart ([place] (5/325)) 1 tab Q3H PRN PO PAIN; Start 09/30/16 at 18:30 Famotidine (Pepcid) 20 mg BID GTB Last administered on 10/06/16 09:12; Admin Dose 20 MG; Start 10/03/16 at 21:00 BINH WOODRUFF Oct 06, 2016 10:25
--- NOTE | 2016-10-06 14:41 | CONS ---
Date/Time of Note Date/Time of Note DATE: 10/06/16 TIME: 14:40 Assessment/Plan Assessment/Plan Additional Assessment/Plan s/p ORIF of humerus HTN CAD Metastatic breast cancer, status post right mastectomy. CVA COPD Hemodynamically stable Continue Lasix Continue Coreg and lisinopril Continue GI and DVT Prophylaxis continue pulmonary toiletry and aspiration precautions Consultation Date/Type/Reason Admit Date/Time Sep 28, 2016 at 16:35 Initial Consult Date 09/29/16 Type of Consultation: cardiology Referring Provider: ARNOLDO GUILLAUME MD Exam/Review of Systems Vital Signs Vitals Vital Signs Date Time Temp Pulse Resp B/P Pulse Ox O2 Delivery O2 Flow Rate FiO2 10/06/16 14:04 98.4 71 19 136/65 99 10/06/16 13:07 Aerosol 28 T Tube 10/06/16 04:59 5.0 Intake and Output 10/05/16 10/05/16 10/06/16 15:00 23:00 07:00 Intake Total 700 ml 1500 ml 2600 ml Balance 700 ml 1500 ml 2600 ml Exam Constitutional: alert Neck: other (trach on high flow) Respiratory: diminished breath sounds Cardiovascular: regular rate and rhythm Gastrointestinal: nl liver, spleen, non-tender, soft Results Result Diagram: 10/06/16 0531 10/06/16 0531 Results 24 hrs Laboratory Tests Test 10/06/16 05:31 White Blood Count 5.0 Red Blood Count 3.64 L Hemoglobin 9.9 L Hematocrit 29.4 L Mean Corpuscular Volume 80.8 L Mean Corpuscular Hemoglobin 27.2 L Mean Corpuscular Hemoglobin Concent 33.7 Red Cell Distribution Width 14.7 H Platelet Count 415 Mean Platelet Volume 12.3 H Neutrophils % 49.6 Lymphocytes % 28.8 Monocytes % 13.8 H Eosinophils % 7.0 Basophils % 0.6 Nucleated Red Blood Cells % 0.0 Neutrophils # 2.5 Lymphocytes # 1.4 Monocytes # 0.7 Eosinophils # 0.4 Basophils # 0.0 Nucleated Red Blood Cells # 0.0 Sodium Level 144 Potassium Level 4.2 Chloride Level 103 Carbon Dioxide Level 30 Anion Gap 15 Blood Urea Nitrogen 15 Creatinine 0.62 Glucose Level 94 Calcium Level 8.8 Medications Medications Current Medications Ondansetron HCl (Zofran Inj) 4 mg Q6H PRN IV NAUSEA AND/OR VOMITING; Start at 19:30 Enoxaparin Sodium (Lovenox) 30 mg DAILY SC Last administered on 10/06/16 09:13 ; Admin Dose 30 MG; Start 09/27/16 at 09:00 Ascorbic Acid (Vitamin C) 500 mg DAILY GTB Last administered on 10/06/16 09:12 ; Admin Dose 500 MG; Start 09/28/16 at 09:00 Aspirin (Aspirin) 81 mg DAILY GTB Last administered on 10/06/16 09:12; Admin Dose 81 MG; Start 09/28/16 at 09:00 Lorazepam (Ativan) 0.5 mg Q6 PRN GTB ANXIETY Last administered on 10/05/16 00: 32; Admin Dose 0.5 MG; Start 09/27/16 at 14:00 Multivitamins/ Minerals (Theragran-M) 1 tab DAILY PO Last administered on 09:11; Admin Dose 1 TAB; Start 09/28/16 at 09:00 Lisinopril (Zestril) 5 mg DAILY GTB Last administered on 10/06/16 09:11; Admin Dose 5 MG; Start 09/28/16 at 09:00 Carvedilol 3.125 mg 3.125 mg BID GTB Last administered on 10/06/16 09:12; Admin Dose 3.125 MG; Start 09/27/16 at 21:30 Sodium Chloride (NS) 1,000 ml @ 100 mls/hr Q10H IV Last administered on 10:44; Admin Dose 100 MLS/HR; Start 09/30/16 at 18:05 Morphine Sulfate (morphine) 2 mg Q2H PRN IV PAIN; Start 09/30/16 at 18:30 Acetaminophen/ Hydrocodone Bitart ([place] (5/325)) 1 tab Q3H PRN PO PAIN; Start 09/30/16 at 18:30 Famotidine (Pepcid) 20 mg BID GTB Last administered on 10/06/16 09:12; Admin Dose 20 MG; Start 10/03/16 at 21:00 JACE VILLA M.D. Oct 06, 2016 14:41
[2016-10-07] VITALS (13 sets, daily range): BP systolic 123–158; BP diastolic 60–87; PULSE 85–86; RESP 18–20
[2016-10-07] MEDS: SOD CHLORIDE 0.9% 1,000 ML IV SCH ×4 (00:05→17:39)
[2016-10-07 05:56] LABS: ABNORMAL IP MESSAGE 1; BASOPHILS % 0.6 % (0.0-2.0); EOSINOPHILS # 0.3 10^3/ul (0.0-0.5); EOSINOPHILS % 4.6 % (0.0-7.0); HEMATOCRIT 32.2 % (42.0-52.0); HEMOGLOBIN 10.7 g/dl (14.0-18.0); LYMPHOCYTES # 1.6 10^3/ul (0.8-2.9); LYMPHOCYTES % 23.6 % (15.0-51.0); MEAN CORPUSCULAR HEMOGLOBIN 27.6 pg (29.0-33.0); MEAN CORPUSCULAR HGB CONC 33.2 g/dl (32.0-37.0); MEAN CORPUSCULAR VOLUME 83.2 fl (82.0-101.0); MEAN PLATELET VOLUME 13.2 fl (7.4-10.4); MONOCYTE # 0.8 10^3/ul (0.3-0.9); MONOCYTES % 11.4 % (0.0-11.0); NEUTROPHIL # 4.1 10^3/ul (1.6-7.5); NEUTROPHILS % 59.4 % (39.0-77.0); POSITIVE DIFF @See below; RED BLOOD COUNT 3.87 10^6/ul (4.70-6.10); RED CELL DISTRIBUTION WIDTH 15.4 % (11.5-14.5); WHITE BLOOD COUNT 6.9 10^3/ul (4.8-10.8)
[2016-10-07] MEDS: FUROSEMIDE 20 MG TAB GTB SCH ×2 (06:10→17:39)
[2016-10-07 06:32] LABS: CALCIUM 9.2 mg/dl (8.4-10.2); CREATININE 0.62 mg/dl (0.61-1.24); POTASSIUM 4.2 mmol/L (3.5-5.1)
[2016-10-07 06:35] LABS: PLATELET COUNT 287 10^3/UL (140-415)
[2016-10-07] MEDS: ALBUTEROL/IPRATROPIUM (NEB) 3 ML AMP INH SCH ×4 (07:55→20:55)
[2016-10-07] MEDS: FAMOTIDINE 20 MG TAB GTB SCH ×2 (09:31→21:00)
[2016-10-07] MEDS: ASCORBIC ACID 500 MG TAB GTB SCH (09:31)
[2016-10-07] MEDS: ASPIRIN 81 MG TAB GTB SCH (09:31)
[2016-10-07] MEDS: MULTIVITAMINS/MINERALS TAB PO SCH (09:31)
[2016-10-07] MEDS: LISINOPRIL 5 MG TAB GTB SCH (09:32)
[2016-10-07] MEDS: ENOXAPARIN 30 MG/0.3 ML SYG SC SCH (09:54)
--- NOTE | 2016-10-07 10:40 | PN ---
DATE: SUBJECTIVE DATA: This is the 5th postop day. OBJECTIVE DATA: Stable vital signs without any fever. No obvious motion at the fracture site. Incision is clean and dry. Latest H and H was 9.7. ASSESSMENT AND PLAN: No aggressive occupational therapy is recommended on the left lower extremity because of the unstable nature of fracture and also because of the preexisting incomplete hemiplegia involving the left extremities, especially more noticeable in the left upper extremity. Dictated By: In Linda Manuel MD /scott/damaris /Document#: [id number]
--- NOTE | 2016-10-07 11:01 | CONS ---
Date/Time of Note Date/Time of Note DATE: 10/07/16 TIME: 11:00 Assessment/Plan Assessment/Plan Chief Complaint/Hosp Course IMP: 1.Pre-op-for humeral surgery due to pathological fracture-negative trop x 3. Echo EF 50-55. No contraindicated valve lesions. Lexiscan with no ischemia. EF 48%. Thus ok to proceed to surgery at moderate risk without further non- invasive evaluation. Now Post-op s/p L UE ORIF of humeral fx 2.HTN 3.CAD 4.Humeral fx-pathologic s/p surgical repair 5.breast ca 6. trach s/p self d/c 09/29 am Recc: -Continue asa -Continue zestril with slight increase to improve BP control/coreg -Pain control Problems: Consultation Date/Type/Reason Admit Date/Time Sep 28, 2016 at 16:35 Initial Consult Date 09/27/2016 Type of Consultation: cardiology Reason for Consultation HTN Referring Provider: ARNOLDO GUILLAUME MD Exam/Review of Systems Vital Signs Vitals Vital Signs Date Time Temp Pulse Resp B/P Pulse Ox O2 Delivery O2 Flow Rate FiO2 10/07/16 09:53 98.5 73 18 141/70 100 10/07/16 07:55 Aerosol 5.0 28 T Tube Intake and Output 10/06/16 10/06/16 10/07/16 15:00 23:00 07:00 Intake Total 450 ml 2270 ml 2400 ml Balance 450 ml 2270 ml 2400 ml Exam Review of Systems: CONSTITUTIONAL: No fevers, chills. PULMONARY: No sob CARDIOVASCULAR: No chest pain/palpitations GASTROINTESTINAL: No nausea/vomiting. GENITOURINARY: No hematuria/dysuria. MUSCULOSKELETAL: No myagias/arthalgias. PSYCHIATRIC: The patient denies depression. NEUROLOGIC: lethargic confusion Constitutional: alert Psych: no complaints Head: normocephalic ENMT: mucosa pink and moist Neck: jvd (9 cm water), supple Respiratory: diminished breath sounds (at bases/B) Cardiovascular: regular rate and rhythm Gastrointestinal: non-tender, soft Musculoskeletal: muscle tone (normal), other (L arm s/p surgery) Extremities: edema (none) Neurological: lethargic Results Result Diagram: 10/07/1651110/07/16511 Results 24 hrs Laboratory Tests Test 10/07/16 05:12 White Blood Count 6.9 # Red Blood Count 3.87 L Hemoglobin 10.7 L Hematocrit 32.2 L Mean Corpuscular Volume 83.2 Mean Corpuscular Hemoglobin 27.6 L Mean Corpuscular Hemoglobin Concent 33.2 Red Cell Distribution Width 15.4 H Platelet Count 287 # Mean Platelet Volume 13.2 H Neutrophils % 59.4 Lymphocytes % 23.6 Monocytes % 11.4 H Eosinophils % 4.6 Basophils % 0.6 Nucleated Red Blood Cells % 0.0 Neutrophils # 4.1 Lymphocytes # 1.6 Monocytes # 0.8 Eosinophils # 0.3 Basophils # 0.0 Nucleated Red Blood Cells # 0.0 Sodium Level 144 Potassium Level 4.2 Chloride Level 103 Carbon Dioxide Level 30 Anion Gap 15 Blood Urea Nitrogen 15 Creatinine 0.62 Glucose Level 94 Calcium Level 9.2 Medications Medications Current Medications Ondansetron HCl (Zofran Inj) 4 mg Q6H PRN IV NAUSEA AND/OR VOMITING; Start at 19:30 Enoxaparin Sodium (Lovenox) 30 mg DAILY SC Last administered on 10/07/16 09:54 ; Admin Dose 30 MG; Start 09/27/16 at 09:00 Ascorbic Acid (Vitamin C) 500 mg DAILY GTB Last administered on 10/07/16 09:31 ; Admin Dose 500 MG; Start 09/28/16 at 09:00 Aspirin (Aspirin) 81 mg DAILY GTB Last administered on 10/07/16 09:31; Admin Dose 81 MG; Start 09/28/16 at 09:00 Lorazepam (Ativan) 0.5 mg Q6 PRN GTB ANXIETY Last administered on 10/05/16 00: 32; Admin Dose 0.5 MG; Start 09/27/16 at 14:00 Multivitamins/ Minerals (Theragran-M) 1 tab DAILY PO Last administered on 09:31; Admin Dose 1 TAB; Start 09/28/16 at 09:00 Lisinopril (Zestril) 5 mg DAILY GTB Last administered on 10/07/16 09:32; Admin Dose 5 MG; Start 09/28/16 at 09:00 Carvedilol 3.125 mg 3.125 mg BID GTB Last administered on 10/07/16 09:32; Admin Dose 3.125 MG; Start 09/27/16 at 21:30 Sodium Chloride (NS) 1,000 ml @ 100 mls/hr Q10H IV Last administered on 06:10; Admin Dose 100 MLS/HR; Start 09/30/16 at 18:05 Morphine Sulfate (morphine) 2 mg Q2H PRN IV PAIN; Start 09/30/16 at 18:30 Acetaminophen/ Hydrocodone Bitart ([place] (5/325)) 1 tab Q3H PRN PO PAIN; Start 09/30/16 at 18:30 Famotidine (Pepcid) 20 mg BID GTB Last administered on 10/07/16 09:31; Admin Dose 20 MG; Start 10/03/16 at 21:00 SIDNEY FLEMING Oct 07, 2016 11:01
--- NOTE | 2016-10-07 15:46 | PN ---
Date/Time of Note Date/Time of Note DATE: 10/07/16 TIME: 15:43 Assessment/Plan VTE Prophylaxis VTE Prophylaxis Intervention: SCD's Lines/Catheters IV [facility]from [facility] Peripheral IV Urinary Cath still in place: No Assessment/Plan Chief Complaint/Hosp Course Patient is comfortable on T-tube, remains hemodynamically stable, tolerates G- tube feeding well, pending [place] eval. Assessment/Plan -Closed left humeral fracture, status post ORIF of left humerus fracture. Dr. Manuel is following in orthopedic surgery consultation. - Chronic respiratory failure secondary tracheostomy dislodged by patient 09/29. Dr. Tyson is following in pulmonology consultation. - G-tube displacement, status new G-tube placement in ER. - Status post mechanical fall. - Metastatic breast cancer, status post right mastectomy. Patient is not a candidate for chemotherapy. - Transaminitis - Anemia, no indication for blood transfusion. - History of CVA with left-sided hemiplegia. - Hypertension, continue Coreg and lisinopril. - COPD, continue breathing treatment. - History of left leg fracture Further recommendations based on clinical course. Plan of care discussed with Dr. Young. Problems: Exam/Review of Systems Vital Signs Vitals Vital Signs Date Time Temp Pulse Resp B/P Pulse Ox O2 Delivery O2 Flow Rate FiO2 10/07/16 14:03 98.0 79 18 123/68 98 10/07/16 11:49 Aerosol 5.0 28 T Tube Intake and Output 10/06/16 10/06/16 10/07/16 15:00 23:00 07:00 Intake Total 450 ml 2270 ml 2400 ml Balance 450 ml 2270 ml 2400 ml Exam Constitutional: alert, frail Psych: confusion Respiratory: normal air movement, other (Tracheostomy) Cardiovascular: nl pulses Gastrointestinal: non-tender, other (G-tube), soft Extremities: Left upper extremity status post surgery Results Result Diagram: 10/07/1612 10/07/16 0512 Results 24 hrs Laboratory Tests Test 10/07/16 05:12 White Blood Count 6.9 # Red Blood Count 3.87 L Hemoglobin 10.7 L Hematocrit 32.2 L Mean Corpuscular Volume 83.2 Mean Corpuscular Hemoglobin 27.6 L Mean Corpuscular Hemoglobin Concent 33.2 Red Cell Distribution Width 15.4 H Platelet Count 287 # Mean Platelet Volume 13.2 H Neutrophils % 59.4 Lymphocytes % 23.6 Monocytes % 11.4 H Eosinophils % 4.6 Basophils % 0.6 Nucleated Red Blood Cells % 0.0 Neutrophils # 4.1 Lymphocytes # 1.6 Monocytes # 0.8 Eosinophils # 0.3 Basophils # 0.0 Nucleated Red Blood Cells # 0.0 Sodium Level 144 Potassium Level 4.2 Chloride Level 103 Carbon Dioxide Level 30 Anion Gap 15 Blood Urea Nitrogen 15 Creatinine 0.62 Glucose Level 94 Calcium Level 9.2 Medications Medications Current Medications Ondansetron HCl (Zofran Inj) 4 mg Q6H PRN IV NAUSEA AND/OR VOMITING; Start at 19:30 Enoxaparin Sodium (Lovenox) 30 mg DAILY SC Last administered on 10/07/16 09:54 ; Admin Dose 30 MG; Start 09/27/16 at 09:00 Ascorbic Acid (Vitamin C) 500 mg DAILY GTB Last administered on 10/07/16 09:31 ; Admin Dose 500 MG; Start 09/28/16 at 09:00 Aspirin (Aspirin) 81 mg DAILY GTB Last administered on 10/07/16 09:31; Admin Dose 81 MG; Start 09/28/16 at 09:00 Lorazepam (Ativan) 0.5 mg Q6 PRN GTB ANXIETY Last administered on 10/05/16 00: 32; Admin Dose 0.5 MG; Start 09/27/16 at 14:00 Multivitamins/ Minerals (Theragran-M) 1 tab DAILY PO Last administered on 09:31; Admin Dose 1 TAB; Start 09/28/16 at 09:00 Carvedilol 3.125 mg 3.125 mg BID GTB Last administered on 10/07/16 09:32; Admin Dose 3.125 MG; Start 09/27/16 at 21:30 Sodium Chloride (NS) 1,000 ml @ 100 mls/hr Q10H IV Last administered on 06:10; Admin Dose 100 MLS/HR; Start 09/30/16 at 18:05 Morphine Sulfate (morphine) 2 mg Q2H PRN IV PAIN; Start 09/30/16 at 18:30 Acetaminophen/ Hydrocodone Bitart ([place] (5/325)) 1 tab Q3H PRN PO PAIN; Start 09/30/16 at 18:30 Famotidine (Pepcid) 20 mg BID GTB Last administered on 10/07/16t 09:31; Admin Dose 20 MG; Start 10/03/16 at 21:00 Lisinopril (Zestril) 10 mg DAILY GTB ; Start 10/08/16 at 09:00 MATTHIAS SALAZAR Oct 07, 2016 15:46
[2016-10-08] VITALS (15 sets, daily range): BP systolic 123–168; BP diastolic 60–80; PULSE 73–86; RESP 16–22
[2016-10-08] MEDS: ALBUTEROL/IPRATROPIUM (NEB) 3 ML AMP INH SCH ×5 (03:16→21:19)
[2016-10-08] MEDS: SOD CHLORIDE 0.9% 1,000 ML IV SCH ×3 (04:19→14:39)
[2016-10-08 05:35] LABS: BASOPHILS % 0.3 % (0.0-2.0); EOSINOPHILS # 0.4 10^3/ul (0.0-0.5); EOSINOPHILS % 5.4 % (0.0-7.0); HEMATOCRIT 28.9 % (42.0-52.0); HEMOGLOBIN 9.8 g/dl (14.0-18.0); LYMPHOCYTES # 1.6 10^3/ul (0.8-2.9); LYMPHOCYTES % 24.1 % (15.0-51.0); MEAN CORPUSCULAR HEMOGLOBIN 26.8 pg (29.0-33.0); MEAN CORPUSCULAR HGB CONC 33.9 g/dl (32.0-37.0); MEAN CORPUSCULAR VOLUME 79.2 fl (82.0-101.0); MEAN PLATELET VOLUME 11.6 fl (7.4-10.4); MONOCYTE # 0.8 10^3/ul (0.3-0.9); MONOCYTES % 12.7 % (0.0-11.0); NEUTROPHIL # 3.7 10^3/ul (1.6-7.5); NEUTROPHILS % 57.2 % (39.0-77.0); PLATELET COUNT 374 10^3/UL (140-415); RED BLOOD COUNT 3.65 10^6/ul (4.70-6.10); RED CELL DISTRIBUTION WIDTH 14.8 % (11.5-14.5); WHITE BLOOD COUNT 6.5 10^3/ul (4.8-10.8)
[2016-10-08] MEDS: FUROSEMIDE 20 MG TAB GTB SCH ×2 (05:53→18:30)
[2016-10-08 06:54] LABS: CALCIUM 9.4 mg/dl (8.4-10.2); CREATININE 0.67 mg/dl (0.61-1.24); POTASSIUM 3.8 mmol/L (3.5-5.1)
[2016-10-08] MEDS: ENOXAPARIN 30 MG/0.3 ML SYG SC SCH (08:30)
[2016-10-08] MEDS: FAMOTIDINE 20 MG TAB GTB SCH ×2 (08:30→20:36)
[2016-10-08] MEDS: ASCORBIC ACID 500 MG TAB GTB SCH (08:31)
[2016-10-08] MEDS: ASPIRIN 81 MG TAB GTB SCH (08:31)
[2016-10-08] MEDS: MULTIVITAMINS/MINERALS TAB PO SCH ×3 (08:32→18:50)
[2016-10-08] MEDS ORDERED: LISINOPRIL 10 MG TAB GTB SCH (09:00)
--- NOTE | 2016-10-08 13:36 | CONS ---
Date/Time of Note Date/Time of Note DATE: 10/08/16 TIME: 13:33 Assessment/Plan Assessment/Plan Chief Complaint/Hosp Course IMP: 1.Pre-op-for humeral surgery due to pathological fracture-negative trop x 3. Echo EF 50-55. No contraindicated valve lesions. Lexiscan with no ischemia. EF 48%. Thus ok to proceed to surgery at moderate risk without further non- invasive evaluation. Now Post-op s/p L UE ORIF of humeral fx 2.HTN 3.CAD 4.Humeral fx-pathologic s/p surgical repair 5.breast ca 6. trach s/p self d/c 09/29 am 7. Confusion/encephalopathy Recc: -Continue asa -Continue zestril with slight increase to improve BP control/coreg -Pain control -Follow MS closely Problems: Consultation Date/Type/Reason Admit Date/Time Sep 28, 2016 at 16:35 Initial Consult Date 09/27/2016 Type of Consultation: cardiology Reason for Consultation HTN Referring Provider: ARNOLDO GUILLAUME MD Exam/Review of Systems Vital Signs Vitals Vital Signs Date Time Temp Pulse Resp B/P Pulse Ox O2 Delivery O2 Flow Rate FiO2 10/08/16 12:48 77 20 98 5.0 28 10/08/16 12:00 99.0 129/71 T Tube Intake and Output 10/07/16 10/07/16 10/08/16 15:00 23:00 07:00 Intake Total 2430 ml 1000 ml Balance 2430 ml 1000 ml Exam Review of Systems: CONSTITUTIONAL: No fevers, chills. PULMONARY: No sob CARDIOVASCULAR: No chest pain/palpitations GASTROINTESTINAL: No nausea/vomiting. GENITOURINARY: No hematuria/dysuria. MUSCULOSKELETAL: No myagias/arthalgias. PSYCHIATRIC: The patient denies depression. NEUROLOGIC: confusion Constitutional: alert Psych: nl mood/affect Head: normocephalic ENMT: mucosa pink and moist Neck: jvd (9 cm water), supple Respiratory: diminished breath sounds (at bases/B) Cardiovascular: regular rate and rhythm Gastrointestinal: non-tender, soft Musculoskeletal: muscle weakness (mild generalized), other (L arm in sling) Extremities: other (confusion) Results Result Diagram: 10/08/16 0456 10/08/16 0456 Results 24 hrs Laboratory Tests Test 10/08/16 04:56 White Blood Count 6.5 Red Blood Count 3.65 L Hemoglobin 9.8 L Hematocrit 28.9 L Mean Corpuscular Volume 79.2 L Mean Corpuscular Hemoglobin 26.8 L Mean Corpuscular Hemoglobin Concent 33.9 Red Cell Distribution Width 14.8 H Platelet Count 374 # Mean Platelet Volume 11.6 H Neutrophils % 57.2 Lymphocytes % 24.1 Monocytes % 12.7 H Eosinophils % 5.4 Basophils % 0.3 Nucleated Red Blood Cells % 0.0 Neutrophils # 3.7 Lymphocytes # 1.6 Monocytes # 0.8 Eosinophils # 0.4 Basophils # 0.0 Nucleated Red Blood Cells # 0.0 Sodium Level 144 Potassium Level 3.8 Chloride Level 103 Carbon Dioxide Level 29 Anion Gap 16 Blood Urea Nitrogen 14 Creatinine 0.67 Glucose Level 109 Calcium Level 9.4 Medications Medications Current Medications Ondansetron HCl (Zofran Inj) 4 mg Q6H PRN IV NAUSEA AND/OR VOMITING; Start at 19:30 Enoxaparin Sodium (Lovenox) 30 mg DAILY SC Last administered on 10/08/16 08:30 ; Admin Dose 30 MG; Start 09/27/16 at 09:00 Ascorbic Acid (Vitamin C) 500 mg DAILY GTB Last administered on 10/08/16 08:31 ; Admin Dose 500 MG; Start 09/28/16 at 09:00 Aspirin (Aspirin) 81 mg DAILY GTB Last administered on 10/08/16 08:31; Admin Dose 81 MG; Start 09/28/16 at 09:00 Lorazepam (Ativan) 0.5 mg Q6 PRN GTB ANXIETY Last administered on 10/05/16 00: 32; Admin Dose 0.5 MG; Start 09/27/16 at 14:00 Multivitamins/ Minerals (Theragran-M) 1 tab DAILY PO Last administered on 09:31; Admin Dose 1 TAB; Start 09/28/16 at 09:00 Carvedilol 3.125 mg 3.125 mg BID GTB Last administered on 10/08/16 08:33; Admin Dose 3.125 MG; Start 09/27/16 at 21:30 Sodium Chloride (NS) 1,000 ml @ 100 mls/hr Q10H IV Last administered on 04:19; Admin Dose 100 MLS/HR; Start 09/30/16 at 18:05 Morphine Sulfate (morphine) 2 mg Q2H PRN IV PAIN; Start 09/30/16 at 18:30 Acetaminophen/ Hydrocodone Bitart ([place] (5/325)) 1 tab Q3H PRN PO PAIN; Start 09/30/16 at 18:30 Famotidine (Pepcid) 20 mg BID GTB Last administered on 10/08/16 08:30; Admin Dose 20 MG; Start 10/03/16 at 21:00 Lisinopril (Zestril) 10 mg DAILY GTB Last administered on 10/08/16 08:34; Admin Dose 10 MG; Start 10/08/16 at 09:00 SIDNEY FLEMING Oct 08, 2016 13:36
--- NOTE | 2016-10-08 14:20 | PN ---
Date/Time of Note Date/Time of Note DATE: 10/08/16 TIME: 14:18 Assessment/Plan VTE Prophylaxis VTE Prophylaxis Intervention: SCD's Lines/Catheters IV Catheter Type (from Nrs): Peripheral IV Central line still needed: Yes Urinary Cath still in place: No Assessment/Plan Chief Complaint/Hosp Course No acute events overnight, patient looks comfortable, remains hemodynamically stable, tolerates G-tube feeding well per RN, pending [place] eval. Assessment/Plan -Closed left humeral fracture, status post ORIF of left humerus fracture. Dr. Manuel is following in orthopedic surgery consultation. - Chronic respiratory failure secondary tracheostomy dislodged by patient 09/29. Dr. Tyson is following in pulmonology consultation. - G-tube displacement, status new G-tube placement in ER. - Status post mechanical fall. - Metastatic breast cancer, status post right mastectomy. Patient is not a candidate for chemotherapy. - Transaminitis - Anemia, no indication for blood transfusion. - History of CVA with left-sided hemiplegia. - Hypertension, continue Coreg and lisinopril. - COPD, continue breathing treatment. - History of left leg fracture Further recommendations based on clinical course. Plan of care discussed with Dr. Young. Problems: Exam/Review of Systems Vital Signs Vitals Vital Signs Date Time Temp Pulse Resp B/P Pulse Ox O2 Delivery O2 Flow Rate FiO2 10/08/16 12:48 77 20 98 5.0 28 10/08/16 12:00 99.0 129/71 T Tube Intake and Output 10/07/16 10/07/16 10/08/16 15:00 23:00 07:00 Intake Total 2430 ml 1000 ml Balance 2430 ml 1000 ml Exam Constitutional: alert, frail Psych: confusion Respiratory: normal air movement, other (Tracheostomy) Cardiovascular: nl pulses Gastrointestinal: non-tender, other (G-tube), soft Extremities: Left upper extremity status post surgery Results Result Diagram: 10/08/16 0456 10/08/16 0456 Results 24 hrs Laboratory Tests Test 10/08/16 04:56 White Blood Count 6.5 Red Blood Count 3.65 L Hemoglobin 9.8 L Hematocrit 28.9 L Mean Corpuscular Volume 79.2 L Mean Corpuscular Hemoglobin 26.8 L Mean Corpuscular Hemoglobin Concent 33.9 Red Cell Distribution Width 14.8 H Platelet Count 374 # Mean Platelet Volume 11.6 H Neutrophils % 57.2 Lymphocytes % 24.1 Monocytes % 12.7 H Eosinophils % 5.4 Basophils % 0.3 Nucleated Red Blood Cells % 0.0 Neutrophils # 3.7 Lymphocytes # 1.6 Monocytes # 0.8 Eosinophils # 0.4 Basophils # 0.0 Nucleated Red Blood Cells # 0.0 Sodium Level 144 Potassium Level 3.8 Chloride Level 103 Carbon Dioxide Level 29 Anion Gap 16 Blood Urea Nitrogen 14 Creatinine 0.67 Glucose Level 109 Calcium Level 9.4 Medications Medications Current Medications Ondansetron HCl (Zofran Inj) 4 mg Q6H PRN IV NAUSEA AND/OR VOMITING; Start at 19:30 Enoxaparin Sodium (Lovenox) 30 mg DAILY SC Last administered on 10/08/16 08:30 ; Admin Dose 30 MG; Start 09/27/16 at 09:00 Ascorbic Acid (Vitamin C) 500 mg DAILY GTB Last administered on 10/08/16 08:31 ; Admin Dose 500 MG; Start 09/28/16 at 09:00 Aspirin (Aspirin) 81 mg DAILY GTB Last administered on 10/08/16 08:31; Admin Dose 81 MG; Start 09/28/16 at 09:00 Lorazepam (Ativan) 0.5 mg Q6 PRN GTB ANXIETY Last administered on 10/05/16 00: 32; Admin Dose 0.5 MG; Start 09/27/16 at 14:00 Multivitamins/ Minerals (Theragran-M) 1 tab DAILY PO Last administered on 09:31; Admin Dose 1 TAB; Start 09/28/16 at 09:00 Carvedilol 3.125 mg 3.125 mg BID GTB Last administered on 10/08/16 08:33; Admin Dose 3.125 MG; Start 09/27/16 at 21:30 Sodium Chloride (NS) 1,000 ml @ 100 mls/hr Q10H IV Last administered on 04:19; Admin Dose 100 MLS/HR; Start 09/30/16 at 18:05 Morphine Sulfate (morphine) 2 mg Q2H PRN IV PAIN; Start 09/30/16 at 18:30 Acetaminophen/ Hydrocodone Bitart ([place] (5/325)) 1 tab Q3H PRN PO PAIN; Start 09/30/16 at 18:30 Famotidine (Pepcid) 20 mg BID GTB Last administered on 10/08/16t 08:30; Admin Dose 20 MG; Start 10/03/16 at 21:00 Lisinopril (Zestril) 10 mg BID GTB ; Start 10/08/16 at 21:00 MATTHIAS SALAZAR Oct 08, 2016 14:20
[2016-10-08] MEDS: LISINOPRIL 10 MG TAB GTB SCH (20:36)
[2016-10-09] VITALS (15 sets, daily range): BP systolic 118–145; BP diastolic 61–78; PULSE 70–85; RESP 16–20
[2016-10-09] MEDS: SOD CHLORIDE 0.9% 1,000 ML IV SCH ×4 (00:32→22:21)
--- NOTE | 2016-10-09 04:57 | PN ---
DATE: 10/01/2016 First postoperative day. Afebrile. Post-op x-ray shows satisfactory alignment of the fracture with proper position of the intramedullary device. No signs of neurovascular compromise. The left upper extremity is to stay in a sling for about four weeks. Dictated By: In Linda Manuel MD /scott/marsha /Document#: [id number]
[2016-10-09] MEDS: FUROSEMIDE 20 MG TAB GTB SCH ×2 (05:32→18:38)
[2016-10-09 06:40] LABS: BASOPHILS % 0.7 % (0.0-2.0); EOSINOPHILS # 0.3 10^3/ul (0.0-0.5); EOSINOPHILS % 5.4 % (0.0-7.0); HEMATOCRIT 28.4 % (42.0-52.0); HEMOGLOBIN 9.5 g/dl (14.0-18.0); LYMPHOCYTES # 1.6 10^3/ul (0.8-2.9); MEAN CORPUSCULAR HEMOGLOBIN 27.1 pg (29.0-33.0); MEAN CORPUSCULAR HGB CONC 33.5 g/dl (32.0-37.0); MEAN CORPUSCULAR VOLUME 80.9 fl (82.0-101.0); MEAN PLATELET VOLUME 11.1 fl (7.4-10.4); MONOCYTE # 0.7 10^3/ul (0.3-0.9); MONOCYTES % 11.2 % (0.0-11.0); NEUTROPHIL # 3.2 10^3/ul (1.6-7.5); NEUTROPHILS % 55.4 % (39.0-77.0); PLATELET COUNT 410 10^3/UL (140-415); RED BLOOD COUNT 3.51 10^6/ul (4.70-6.10); RED CELL DISTRIBUTION WIDTH 15.4 % (11.5-14.5); WHITE BLOOD COUNT 5.8 10^3/ul (4.8-10.8)
[2016-10-09 06:58] LABS: CALCIUM 9.1 mg/dl (8.4-10.2); CREATININE 0.65 mg/dl (0.61-1.24)
[2016-10-09] MEDS: ALBUTEROL/IPRATROPIUM (NEB) 3 ML AMP INH SCH ×4 (08:03→20:59)
[2016-10-09] MEDS: ASCORBIC ACID 500 MG TAB GTB SCH (08:52)
[2016-10-09] MEDS: ASPIRIN 81 MG TAB GTB SCH (08:52)
[2016-10-09] MEDS: FAMOTIDINE 20 MG TAB GTB SCH ×2 (08:52→20:53)
[2016-10-09] MEDS: MULTIVITAMINS/MINERALS TAB PO SCH (08:52)
[2016-10-09] MEDS: LISINOPRIL 10 MG TAB GTB SCH ×2 (08:53→20:52)
[2016-10-09] MEDS: ENOXAPARIN 30 MG/0.3 ML SYG SC SCH (08:54)
[2016-10-09] MEDS: HYDROCODONE/APAP (5/325) TAB PO PRN (09:14)
--- NOTE | 2016-10-09 12:50 | PN ---
Date/Time of Note Date/Time of Note DATE: 10/09/16 TIME: 12:48 Assessment/Plan VTE Prophylaxis VTE Prophylaxis Intervention: SCD's Lines/Catheters IV Catheter Type (from [facility]): Peripheral IV Urinary Cath still in place: No Assessment/Plan Chief Complaint/Hosp Course Patient remains hemodynamically stable, confused, patient was admitted with trach which was capped currently is trach to T-tube, patient also episodes of trach dislodgment by the patient early on admission,pending [place] eval. Assessment/Plan -Closed left humeral fracture, status post ORIF of left humerus fracture. Dr. Manuel is following in orthopedic surgery consultation. - Chronic respiratory failure secondary tracheostomy dislodged by patient 09/29. Dr. Tyson is following in pulmonology consultation. - G-tube displacement, status new G-tube placement in ER. - Status post mechanical fall. - Metastatic breast cancer, status post right mastectomy. Patient is not a candidate for chemotherapy. - Transaminitis - Anemia, no indication for blood transfusion. - History of CVA with left-sided hemiplegia. - Hypertension, continue Coreg and lisinopril. - COPD, continue breathing treatment. - History of left leg fracture Further recommendations based on clinical course. Plan of care discussed with Dr. Young. Problems: Subjective 24 Hr Interval Summary Free Text/Dictation Constitutional: alert, frail Psych: confusion Respiratory: normal air movement, other (Tracheostomy) Cardiovascular: nl pulses Gastrointestinal: non-tender, other (G-tube), soft Extremities: Left upper extremity status post surgery Exam/Review of Systems Vital Signs Vitals Vital Signs Date Time Temp Pulse Resp B/P Pulse Ox O2 Delivery O2 Flow Rate FiO2 10/09/16 11:21 86 22 100 Aerosol 5.0 28 T Tube 10/09/16 10:00 98.2 125/75 Intake and Output 10/08/16 10/08/16 10/09/16 15:00 23:00 07:00 Intake Total 950 ml 1730 ml 1100 ml Balance 950 ml 1730 ml 1100 ml Results Result Diagram: 10/09/16 0605 10/09/16 0605 Results 24 hrs Laboratory Tests Test 10/09/16 06:05 White Blood Count 5.8 Red Blood Count 3.51 L Hemoglobin 9.5 L Hematocrit 28.4 L Mean Corpuscular Volume 80.9 L Mean Corpuscular Hemoglobin 27.1 L Mean Corpuscular Hemoglobin Concent 33.5 Red Cell Distribution Width 15.4 H Platelet Count 410 Mean Platelet Volume 11.1 H Neutrophils % 55.4 Lymphocytes % 27.0 Monocytes % 11.2 H Eosinophils % 5.4 Basophils % 0.7 Nucleated Red Blood Cells % 0.0 Neutrophils # 3.2 Lymphocytes # 1.6 Monocytes # 0.7 Eosinophils # 0.3 Basophils # 0.0 Nucleated Red Blood Cells # 0.0 Sodium Level 144 Potassium Level 4.0 Chloride Level 105 Carbon Dioxide Level 27 Anion Gap 16 Blood Urea Nitrogen 15 Creatinine 0.65 Glucose Level 88 Calcium Level 9.1 Medications Medications Current Medications Ondansetron HCl (Zofran Inj) 4 mg Q6H PRN IV NAUSEA AND/OR VOMITING; Start at 19:30 Enoxaparin Sodium (Lovenox) 30 mg DAILY SC Last administered on 10/09/16 08:54 ; Admin Dose 30 MG; Start 09/27/16 at 09:00 Ascorbic Acid (Vitamin C) 500 mg DAILY GTB Last administered on 10/09/16 08:52 ; Admin Dose 500 MG; Start 09/28/16 at 09:00 Aspirin (Aspirin) 81 mg DAILY GTB Last administered on 10/09/16 08:52; Admin Dose 81 MG; Start 09/28/16 at 09:00 Lorazepam (Ativan) 0.5 mg Q6 PRN GTB ANXIETY Last administered on 10/05/16 00: 32; Admin Dose 0.5 MG; Start 09/27/16 at 14:00 Multivitamins/ Minerals (Theragran-M) 1 tab DAILY PO Last administered on 08:52; Admin Dose 1 TAB; Start 09/28/16 at 09:00 Carvedilol 3.125 mg 3.125 mg BID GTB Last administered on 10/09/16 08:53; Admin Dose 3.125 MG; Start 09/27/16 at 21:30 Sodium Chloride (NS) 1,000 ml @ 100 mls/hr Q10H IV Last administered on 11:11; Admin Dose 100 MLS/HR; Start 09/30/16 at 18:05 Morphine Sulfate (morphine) 2 mg Q2H PRN IV PAIN; Start 09/30/16 at 18:30 Acetaminophen/ Hydrocodone Bitart ([place] (5/325)) 1 tab Q3H PRN PO PAIN Last administered on 10/09/16 09:14; Admin Dose 1 TAB; Start 09/30/16 at 18:30 Famotidine (Pepcid) 20 mg BID GTB Last administered on 10/09/16 08:52; Admin Dose 20 MG; Start 10/03/16 at 21:00 Lisinopril (Zestril) 10 mg BID GTB Last administered on 10/09/16 08:53; Admin Dose 10 MG; Start 10/08/16 at 21:00 MATTHIAS SALAZAR Oct 09, 2016 12:50
--- NOTE | 2016-10-09 14:23 | CONS ---
Date/Time of Note Date/Time of Note DATE: 10/09/16 TIME: 14:22 Assessment/Plan Assessment/Plan Chief Complaint/Hosp Course IMP: 1.Pre-op-for humeral surgery due to pathological fracture-negative trop x 3. Echo EF 50-55. No contraindicated valve lesions. Lexiscan with no ischemia. EF 48%. Thus ok to proceed to surgery at moderate risk without further non- invasive evaluation. Now Post-op s/p L UE ORIF of humeral fx 2.HTN 3.CAD 4.Humeral fx-pathologic s/p surgical repair 5.breast ca 6. trach s/p self d/c 09/29 am 7. Confusion/encephalopathy Recc: -Continue asa -Continue zestril/coreg -Pain control -Follow MS closely Problems: Consultation Date/Type/Reason Admit Date/Time Sep 28, 2016 at 16:35 Initial Consult Date 09/27/2016 Type of Consultation: cardiology Reason for Consultation HTN Referring Provider: ARNOLDO GUILLAUME MD Exam/Review of Systems Vital Signs Vitals Vital Signs Date Time Temp Pulse Resp B/P Pulse Ox O2 Delivery O2 Flow Rate FiO2 10/09/16 13:49 98.2 76 20 128/64 100 10/09/16 11:21 Aerosol 5.0 28 T Tube Intake and Output 10/08/16 10/08/16 10/09/16 15:00 23:00 07:00 Intake Total 950 ml 1730 ml 1100 ml Balance 950 ml 1730 ml 1100 ml Exam Review of Systems: CONSTITUTIONAL: No fevers, chills. PULMONARY: No sob CARDIOVASCULAR: No chest pain/palpitations GASTROINTESTINAL: No nausea/vomiting. GENITOURINARY: No hematuria/dysuria. MUSCULOSKELETAL: No myagias/arthalgias. PSYCHIATRIC: The patient denies depression. NEUROLOGIC: encephalopathy Constitutional: alert Psych: confusion, no complaints ENMT: mucosa pink and moist Neck: jvd (9 cm water), supple Respiratory: diminished breath sounds (at bases/B) Cardiovascular: regular rate and rhythm Gastrointestinal: non-tender, soft Musculoskeletal: muscle tone, other (arm s/p surgery) Extremities: edema (none) Neurological: confused Results Result Diagram: 10/09/16 0605 10/09/16 0605 Results 24 hrs Laboratory Tests Test 10/09/16 06:05 White Blood Count 5.8 Red Blood Count 3.51 L Hemoglobin 9.5 L Hematocrit 28.4 L Mean Corpuscular Volume 80.9 L Mean Corpuscular Hemoglobin 27.1 L Mean Corpuscular Hemoglobin Concent 33.5 Red Cell Distribution Width 15.4 H Platelet Count 410 Mean Platelet Volume 11.1 H Neutrophils % 55.4 Lymphocytes % 27.0 Monocytes % 11.2 H Eosinophils % 5.4 Basophils % 0.7 Nucleated Red Blood Cells % 0.0 Neutrophils # 3.2 Lymphocytes # 1.6 Monocytes # 0.7 Eosinophils # 0.3 Basophils # 0.0 Nucleated Red Blood Cells # 0.0 Sodium Level 144 Potassium Level 4.0 Chloride Level 105 Carbon Dioxide Level 27 Anion Gap 16 Blood Urea Nitrogen 15 Creatinine 0.65 Glucose Level 88 Calcium Level 9.1 Medications Medications Current Medications Ondansetron HCl (Zofran Inj) 4 mg Q6H PRN IV NAUSEA AND/OR VOMITING; Start at 19:30 Enoxaparin Sodium (Lovenox) 30 mg DAILY SC Last administered on 10/09/16 08:54 ; Admin Dose 30 MG; Start 09/27/16 at 09:00 Ascorbic Acid (Vitamin C) 500 mg DAILY GTB Last administered on 10/09/16 08:52 ; Admin Dose 500 MG; Start 09/28/16 at 09:00 Aspirin (Aspirin) 81 mg DAILY GTB Last administered on 10/09/16 08:52; Admin Dose 81 MG; Start 09/28/16 at 09:00 Lorazepam (Ativan) 0.5 mg Q6 PRN GTB ANXIETY Last administered on 10/05/16 00: 32; Admin Dose 0.5 MG; Start 09/27/16 at 14:00 Multivitamins/ Minerals (Theragran-M) 1 tab DAILY PO Last administered on 08:52; Admin Dose 1 TAB; Start 09/28/16 at 09:00 Carvedilol 3.125 mg 3.125 mg BID GTB Last administered on 10/09/16 08:53; Admin Dose 3.125 MG; Start 09/27/16 at 21:30 Sodium Chloride (NS) 1,000 ml @ 100 mls/hr Q10H IV Last administered on 11:11; Admin Dose 100 MLS/HR; Start 09/30/16 at 18:05 Morphine Sulfate (morphine) 2 mg Q2H PRN IV PAIN; Start 09/30/16 at 18:30 Acetaminophen/ Hydrocodone Bitart ([place] (5/325)) 1 tab Q3H PRN PO PAIN Last administered on 10/09/16 09:14; Admin Dose 1 TAB; Start 09/30/16 at 18:30 Famotidine (Pepcid) 20 mg BID GTB Last administered on 10/09/16 08:52; Admin Dose 20 MG; Start 10/03/16 at 21:00 Lisinopril (Zestril) 10 mg BID GTB Last administered on 10/09/16 08:53; Admin Dose 10 MG; Start 10/08/16 at 21:00 SIDNEY FLEMING Oct 09, 2016 14:23
--- NOTE | 2016-10-09 14:23 | CONS ---
DATE OF ADMISSION: 09/28/2016 DATE OF CONSULTATION: 09/27/2016 HISTORY OF PRESENT ILLNESS: The patient is a 71-year-old male who was admitted on 09/26/2016 when he was brought in by the EMS from his [facility] because of a dislodged gastrostomy tube. At the time of the evaluation in the Emergency room he was also complaining of painful swelling involving his left arm, and radiologic evaluation of the left arm revealed the presence of fracture involving the proximal shaft of the left humerus. On enquiring he claims that he developed this pain involving his left arm, several days ago after being lifted during the transfer in the [facility]. My examination revealed an obvious swelling and abnormal motion involving the proximal portion of the left arm. He has a paralysis of the left upper extremity from previous CVA and there does not seem to be any acute neurovascular compromise. It is also known that he had a breast cancer involving his right breast and he underwent a mastectomy of the right breast in the past. X-rays of the right humerus revealed an obvious fracture involving the proximal shaft of the right humerus. There was a questionable finding suggestive of possible additional fracture involving the left humeral neck. However, this was not clear. DIAGNOSTIC IMPRESSION: Fracture involving the proximal shaft of the right humerus. Rule out possible pathologic fracture. PLAN: 1. Obtain MRI scan of the left shoulder and left humerus. 2. Possible ORIF of the fracture of the left humerus. Probably utilizing intramedullary technique. Dictated By: In Linda Manuel MD /scott/sancho /Document#: [id number]
[2016-10-10] VITALS (13 sets, daily range): BP systolic 107–155; BP diastolic 55–91; PULSE 66–102; RESP 18–20
[2016-10-10] MEDS: FUROSEMIDE 20 MG TAB GTB SCH ×2 (05:39→17:41)
[2016-10-10 06:46] LABS: BASOPHILS % 0.8 % (0.0-2.0); EOSINOPHILS # 0.3 10^3/ul (0.0-0.5); EOSINOPHILS % 5.6 % (0.0-7.0); HEMATOCRIT 28.7 % (42.0-52.0); HEMOGLOBIN 9.2 g/dl (14.0-18.0); LYMPHOCYTES # 1.6 10^3/ul (0.8-2.9); LYMPHOCYTES % 31.9 % (15.0-51.0); MEAN CORPUSCULAR HEMOGLOBIN 27.2 pg (29.0-33.0); MEAN CORPUSCULAR HGB CONC 32.1 g/dl (32.0-37.0); MEAN CORPUSCULAR VOLUME 84.9 fl (82.0-101.0); MEAN PLATELET VOLUME 12.3 fl (7.4-10.4); MONOCYTE # 0.7 10^3/ul (0.3-0.9); MONOCYTES % 14.4 % (0.0-11.0); NEUTROPHIL # 2.4 10^3/ul (1.6-7.5); NEUTROPHILS % 46.7 % (39.0-77.0); PLATELET COUNT 442 10^3/UL (140-415); POSITIVE DIFF @See below; RED BLOOD COUNT 3.38 10^6/ul (4.70-6.10); RED CELL DISTRIBUTION WIDTH 15.8 % (11.5-14.5); WHITE BLOOD COUNT 5.1 10^3/ul (4.8-10.8)
[2016-10-10 07:27] LABS: CALCIUM 9.2 mg/dl (8.4-10.2); CREATININE 0.66 mg/dl (0.61-1.24)
[2016-10-10] MEDS: ALBUTEROL/IPRATROPIUM (NEB) 3 ML AMP INH SCH ×4 (08:03→20:21)
[2016-10-10] MEDS: SOD CHLORIDE 0.9% 1,000 ML IV SCH ×2 (08:14→18:05)
[2016-10-10] MEDS: MULTIVITAMINS/MINERALS TAB PO SCH (08:14)
[2016-10-10] MEDS: LISINOPRIL 10 MG TAB GTB SCH ×2 (08:15→21:00)
[2016-10-10] MEDS: ASCORBIC ACID 500 MG TAB GTB SCH (08:15)
[2016-10-10] MEDS: FAMOTIDINE 20 MG TAB GTB SCH ×2 (08:15→21:18)
[2016-10-10] MEDS: ASPIRIN 81 MG TAB GTB SCH (08:15)
[2016-10-10] MEDS: ENOXAPARIN 30 MG/0.3 ML SYG SC SCH (08:29)
--- NOTE | 2016-10-10 12:01 | PN ---
Date/Time of Note Date/Time of Note DATE: 10/10/16 TIME: 12:00 Assessment/Plan VTE Prophylaxis VTE Prophylaxis Intervention: other Lines/Catheters IV Catheter Type (from [facility]): Peripheral IV Urinary Cath still in place: No Assessment/Plan Chief Complaint/Hosp Course -Closed left humeral fracture, status post ORIF of left humerus fracture. Dr. Manuel is following in orthopedic surgery consultation. - Chronic respiratory failure secondary tracheostomy dislodged by patient 09/29. Dr. Tyson is following in pulmonology consultation. - G-tube displacement, status new G-tube placement in ER. - Status post mechanical fall. - Metastatic breast cancer, status post right mastectomy. Patient is not a candidate for chemotherapy. - Transaminitis - Anemia, no indication for blood transfusion. - History of CVA with left-sided hemiplegia. - Hypertension, continue Coreg and lisinopril. - COPD, continue breathing treatment. - History of left leg fracture Problems: Subjective 24 Hr Interval Summary Free Text/Dictation Patient has pain in left arm Exam/Review of Systems Vital Signs Vitals Vital Signs Date Time Temp Pulse Resp B/P Pulse Ox O2 Delivery O2 Flow Rate FiO2 10/10/16 10:29 98.5 75 18 144/91 99 T Tube 5.0 10/10/16 08:03 28 Intake and Output 10/09/16 10/09/16 10/10/16 15:00 23:00 07:00 Intake Total 550 ml 2290 ml 2100 ml Balance 550 ml 2290 ml 2100 ml Exam Constitutional: well developed Head: atraumatic, normocephalic Neck: supple Respiratory: clear to auscultation Cardiovascular: regular rate and rhythm Gastrointestinal: non-tender, soft Extremities: normal pulses Results Result Diagram: 10/10/16 0604 10/10/16 0604 Results 24 hrs Laboratory Tests Test 10/10/16 06:04 White Blood Count 5.1 Red Blood Count 3.38 L Hemoglobin 9.2 L Hematocrit 28.7 L Mean Corpuscular Volume 84.9 Mean Corpuscular Hemoglobin 27.2 L Mean Corpuscular Hemoglobin Concent 32.1 Red Cell Distribution Width 15.8 H Platelet Count 442 H Mean Platelet Volume 12.3 H Neutrophils % 46.7 Lymphocytes % 31.9 Monocytes % 14.4 H Eosinophils % 5.6 Basophils % 0.8 Nucleated Red Blood Cells % 0.0 Neutrophils # 2.4 Lymphocytes # 1.6 Monocytes # 0.7 Eosinophils # 0.3 Basophils # 0.0 Nucleated Red Blood Cells # 0.0 Sodium Level 145 H Potassium Level 4.0 Chloride Level 103 Carbon Dioxide Level 30 Anion Gap 16 Blood Urea Nitrogen 15 Creatinine 0.66 Glucose Level 90 Calcium Level 9.2 Medications Medications Current Medications Ondansetron HCl (Zofran Inj) 4 mg Q6H PRN IV NAUSEA AND/OR VOMITING; Start at 19:30 Enoxaparin Sodium (Lovenox) 30 mg DAILY SC Last administered on 10/10/16 08:29 ; Admin Dose 30 MG; Start 09/27/16 at 09:00 Ascorbic Acid (Vitamin C) 500 mg DAILY GTB Last administered on 10/10/16 08:15 ; Admin Dose 500 MG; Start 09/28/16 at 09:00 Aspirin (Aspirin) 81 mg DAILY GTB Last administered on 10/10/16 08:15; Admin Dose 81 MG; Start 09/28/16 at 09:00 Lorazepam (Ativan) 0.5 mg Q6 PRN GTB ANXIETY Last administered on 10/05/16 00: 32; Admin Dose 0.5 MG; Start 09/27/16 at 14:00 Multivitamins/ Minerals (Theragran-M) 1 tab DAILY PO Last administered on 08:14; Admin Dose 1 TAB; Start 09/28/16 at 09:00 Carvedilol 3.125 mg 3.125 mg BID GTB Last administered on 10/10/16 08:16; Admin Dose 3.125 MG; Start 09/27/16 at 21:30 Sodium Chloride (NS) 1,000 ml @ 100 mls/hr Q10H IV Last administered on 08:14; Admin Dose 100 MLS/HR; Start 09/30/16 at 18:05 Morphine Sulfate (morphine) 2 mg Q2H PRN IV PAIN; Start 09/30/16 at 18:30 Acetaminophen/ Hydrocodone Bitart ([place] (5/325)) 1 tab Q3H PRN PO PAIN Last administered on 10/09/16 09:14; Admin Dose 1 TAB; Start 09/30/16 at 18:30 Famotidine (Pepcid) 20 mg BID GTB Last administered on 10/10/16 08:15; Admin Dose 20 MG; Start 10/03/16 at 21:00 Lisinopril (Zestril) 10 mg BID GTB Last administered on 10/10/16 08:15; Admin Dose 10 MG; Start 10/08/16 at 21:00 YARELIS MIRELES Oct 10, 2016 12:01
--- NOTE | 2016-10-10 13:07 | CONS ---
Date/Time of Note Date/Time of Note DATE: 10/10/16 TIME: 13:06 Assessment/Plan Assessment/Plan Chief Complaint/Hosp Course IMP: 1.Pre-op-for humeral surgery due to pathological fracture-negative trop x 3. Echo EF 50-55. No contraindicated valve lesions. Lexiscan with no ischemia. EF 48%. Thus ok to proceed to surgery at moderate risk without further non- invasive evaluation. Now Post-op s/p L UE ORIF of humeral fx 2.HTN 3.CAD 4.Humeral fx-pathologic s/p surgical repair 5.breast ca 6. trach s/p self d/c 09/29 am 7. Confusion/encephalopathy Recc: -Continue asa -Continue zestril/coreg -Pain control -Follow MS closely Problems: Consultation Date/Type/Reason Admit Date/Time Sep 28, 2016 at 16:35 Initial Consult Date 09/27/2016 Type of Consultation: cardiology Reason for Consultation Pre-op Referring Provider: ARNOLDO GUILLAUME MD Exam/Review of Systems Vital Signs Vitals Vital Signs Date Time Temp Pulse Resp B/P Pulse Ox O2 Delivery O2 Flow Rate FiO2 10/10/16 12:09 98.4 78 18 125/63 99 T Tube 5.0 10/10/16 11:57 28 Intake and Output 10/09/16 10/09/16 10/10/16 15:00 23:00 07:00 Intake Total 550 ml 2290 ml 2100 ml Balance 550 ml 2290 ml 2100 ml Exam Review of Systems: CONSTITUTIONAL: No fevers, chills. PULMONARY: No sob CARDIOVASCULAR: No chest pain/palpitations GASTROINTESTINAL: No nausea/vomiting. GENITOURINARY: No hematuria/dysuria. MUSCULOSKELETAL: No myagias/arthalgias. PSYCHIATRIC: The patient denies depression. NEUROLOGIC: lethargic Constitutional: alert Psych: no complaints ENMT: mucosa pink and moist Neck: jvd (9 cm water), supple Respiratory: diminished breath sounds Cardiovascular: regular rate and rhythm Gastrointestinal: soft Musculoskeletal: muscle weakness (generalized) Extremities: edema (none) Neurological: other (No focal deficits) Results Result Diagram: 10/10/16 0604 10/10/16 0604 Results 24 hrs Laboratory Tests Test 10/10/16 06:04 White Blood Count 5.1 Red Blood Count 3.38 L Hemoglobin 9.2 L Hematocrit 28.7 L Mean Corpuscular Volume 84.9 Mean Corpuscular Hemoglobin 27.2 L Mean Corpuscular Hemoglobin Concent 32.1 Red Cell Distribution Width 15.8 H Platelet Count 442 H Mean Platelet Volume 12.3 H Neutrophils % 46.7 Lymphocytes % 31.9 Monocytes % 14.4 H Eosinophils % 5.6 Basophils % 0.8 Nucleated Red Blood Cells % 0.0 Neutrophils # 2.4 Lymphocytes # 1.6 Monocytes # 0.7 Eosinophils # 0.3 Basophils # 0.0 Nucleated Red Blood Cells # 0.0 Sodium Level 145 H Potassium Level 4.0 Chloride Level 103 Carbon Dioxide Level 30 Anion Gap 16 Blood Urea Nitrogen 15 Creatinine 0.66 Glucose Level 90 Calcium Level 9.2 Medications Medications Current Medications Ondansetron HCl (Zofran Inj) 4 mg Q6H PRN IV NAUSEA AND/OR VOMITING; Start at 19:30 Enoxaparin Sodium (Lovenox) 30 mg DAILY SC Last administered on 10/10/16 08:29 ; Admin Dose 30 MG; Start 09/27/16 at 09:00 Ascorbic Acid (Vitamin C) 500 mg DAILY GTB Last administered on 10/10/16 08:15 ; Admin Dose 500 MG; Start 09/28/16 at 09:00 Aspirin (Aspirin) 81 mg DAILY GTB Last administered on 10/10/16 08:15; Admin Dose 81 MG; Start 09/28/16 at 09:00 Lorazepam (Ativan) 0.5 mg Q6 PRN GTB ANXIETY Last administered on 10/05/16 00: 32; Admin Dose 0.5 MG; Start 09/27/16 at 14:00 Multivitamins/ Minerals (Theragran-M) 1 tab DAILY PO Last administered on 08:14; Admin Dose 1 TAB; Start 09/28/16 at 09:00 Carvedilol 3.125 mg 3.125 mg BID GTB Last administered on 10/10/16 08:16; Admin Dose 3.125 MG; Start 09/27/16 at 21:30 Sodium Chloride (NS) 1,000 ml @ 100 mls/hr Q10H IV Last administered on 08:14; Admin Dose 100 MLS/HR; Start 09/30/16 at 18:05 Morphine Sulfate (morphine) 2 mg Q2H PRN IV PAIN; Start 09/30/16 at 18:30 Acetaminophen/ Hydrocodone Bitart ([place] (5/325)) 1 tab Q3H PRN PO PAIN Last administered on 10/09/16 09:14; Admin Dose 1 TAB; Start 09/30/16 at 18:30 Famotidine (Pepcid) 20 mg BID GTB Last administered on 10/10/16 08:15; Admin Dose 20 MG; Start 10/03/16 at 21:00 Lisinopril (Zestril) 10 mg BID GTB Last administered on 10/10/16 08:15; Admin Dose 10 MG; Start 10/08/16 at 21:00 SIDNEY FLEMING Oct 10, 2016 13:07
[2016-10-10] MEDS: HYDROCODONE/APAP (5/325) TAB PO PRN ×2 (17:41→22:17)
[2016-10-11] VITALS (15 sets, daily range): BP systolic 115–148; BP diastolic 62–87; PULSE 71–102; RESP 18–20
[2016-10-11] MEDS: FUROSEMIDE 20 MG TAB GTB SCH ×2 (06:00→18:33)
[2016-10-11] MEDS: SOD CHLORIDE 0.9% 1,000 ML IV SCH ×2 (06:00→15:09)
--- NOTE | 2016-10-11 07:18 | PN ---
Date/Time of Note Date/Time of Note DATE: 10/11/16 TIME: 07:17 Assessment/Plan VTE Prophylaxis VTE Prophylaxis Intervention: other Lines/Catheters IV C[facility]ter Type (from [facility]): Peripheral IV Urinary Cath still in place: No Assessment/Plan Chief Complaint/Hosp Course -Closed left humeral fracture, status post ORIF of left humerus fracture. Dr. Manuel is following in orthopedic surgery consultation. - Chronic respiratory failure secondary tracheostomy dislodged by patient 09/29. Dr. Tyson is following in pulmonology consultation. - G-tube displacement, status new G-tube placement in ER. - Status post mechanical fall. - Metastatic breast cancer, status post right mastectomy. Patient is not a candidate for chemotherapy. - Transaminitis - Anemia, no indication for blood transfusion. - History of CVA with left-sided hemiplegia. - Hypertension, continue Coreg and lisinopril. - COPD, continue breathing treatment. - History of left leg fracture Problems: Subjective 24 Hr Interval Summary Free Text/Dictation Patient is nonverbal because of trach but appears comfortably, interactive Exam/Review of Systems Vital Signs Vitals Vital Signs Date Time Temp Pulse Resp B/P Pulse Ox O2 Delivery O2 Flow Rate FiO2 10/11/16 06:00 98.4 78 20 131/70 100 T Tube 10/11/16 04:50 5.0 28 Intake and Output 10/10/16 10/10/16 10/11/16 15:00 23:00 07:00 Intake Total 300 ml 1000 ml 1000 ml Balance 300 ml 1000 ml 1000 ml Exam Constitutional: well developed Head: atraumatic, normocephalic Neck: supple Respiratory: clear to auscultation Cardiovascular: regular rate and rhythm Gastrointestinal: non-tender, soft Extremities: normal pulses Results Result Diagram: 10/10/1604 10/10/16 06 Medications Medications Current Medications Ondansetron HCl (Zofran Inj) 4 mg Q6H PRN IV NAUSEA AND/OR VOMITING; Start at 19:30 Enoxaparin Sodium (Lovenox) 30 mg DAILY SC Last administered on 10/10/16 08:29 ; Admin Dose 30 MG; Start 09/27/16 at 09:00 Ascorbic Acid (Vitamin C) 500 mg DAILY GTB Last administered on 10/10/16 08:15 ; Admin Dose 500 MG; Start 09/28/16 at 09:00 Aspirin (Aspirin) 81 mg DAILY GTB Last administered on 10/10/16 08:15; Admin Dose 81 MG; Start 09/28/16 at 09:00 Lorazepam (Ativan) 0.5 mg Q6 PRN GTB ANXIETY Last administered on 10/05/16 00: 32; Admin Dose 0.5 MG; Start 09/27/16 at 14:00 Multivitamins/ Minerals (Theragran-M) 1 tab DAILY PO Last administered on 08:14; Admin Dose 1 TAB; Start 09/28/16 at 09:00 Carvedilol 3.125 mg 3.125 mg BID GTB Last administered on 10/10/16 08:16; Admin Dose 3.125 MG; Start 09/27/16 at 21:30 Sodium Chloride (NS) 1,000 ml @ 100 mls/hr Q10H IV Last administered on 06:00; Admin Dose 100 MLS/HR; Start 09/30/16 at 18:05 Morphine Sulfate (morphine) 2 mg Q2H PRN IV PAIN; Start 09/30/16 at 18:30 Acetaminophen/ Hydrocodone Bitart ([place] (5/325)) 1 tab Q3H PRN PO PAIN Last administered on 10/10/16 22:17; Admin Dose 1 TAB; Start 09/30/16 at 18:30 Famotidine (Pepcid) 20 mg BID GTB Last administered on 10/10/16 21:18; Admin Dose 20 MG; Start 10/03/16 at 21:00 Lisinopril (Zestril) 10 mg BID GTB Last administered on 10/10/16 08:15; Admin Dose 10 MG; Start 10/08/16 at 21:00 YARELIS MIRELES Oct 11, 2016 07:18
[2016-10-11] MEDS: ALBUTEROL/IPRATROPIUM (NEB) 3 ML AMP INH SCH ×4 (08:18→20:34)
[2016-10-11] MEDS: ASPIRIN 81 MG TAB GTB SCH (09:10)
[2016-10-11] MEDS: FAMOTIDINE 20 MG TAB GTB SCH ×2 (09:10→22:14)
[2016-10-11] MEDS: MULTIVITAMINS/MINERALS TAB PO SCH (09:10)
[2016-10-11] MEDS: LISINOPRIL 10 MG TAB GTB SCH ×2 (09:10→22:14)
[2016-10-11] MEDS: ASCORBIC ACID 500 MG TAB GTB SCH (09:11)
[2016-10-11] MEDS: ENOXAPARIN 30 MG/0.3 ML SYG SC SCH (09:32)
[2016-10-11] MEDS: HYDROCODONE/APAP (5/325) TAB PO PRN (11:03)
--- NOTE | 2016-10-11 12:21 | CONS ---
Date/Time of Note Date/Time of Note DATE: 10/11/16 TIME: 12:19 Assessment/Plan Assessment/Plan Chief Complaint/Hosp Course IMP: 1.Pre-op-for humeral surgery due to pathological fracture-negative trop x 3. Echo EF 50-55. No contraindicated valve lesions. Lexiscan with no ischemia. EF 48%. Thus ok to proceed to surgery at moderate risk without further non- invasive evaluation. Now Post-op s/p L UE ORIF of humeral fx 2.HTN 3.CAD 4.Humeral fx-pathologic s/p surgical repair 5.breast ca 6. trach s/p self d/c 09/29 am 7. Confusion/encephalopathy Recc: -Continue asa -Continue zestril/coreg -Pain control -Follow MS closely Problems: Consultation Date/Type/Reason Admit Date/Time Sep 28, 2016 at 16:35 Initial Consult Date 09/27/2016 Type of Consultation: cardiology Reason for Consultation pre-op/HTN Referring Provider: ARNOLDO GUILLAUME MD Exam/Review of Systems Vital Signs Vitals Vital Signs Date Time Temp Pulse Resp B/P Pulse Ox O2 Delivery O2 Flow Rate FiO2 10/11/16 10:05 98.5 82 20 130/73 100 T Tube 5.0 10/11/16 08:21 28 Intake and Output 10/10/16 10/10/16 10/11/16 15:00 23:00 07:00 Intake Total 300 ml 1000 ml 1000 ml Balance 300 ml 1000 ml 1000 ml Exam Review of Systems: CONSTITUTIONAL: No fevers, chills. PULMONARY: No sob CARDIOVASCULAR: No chest pain/palpitations GASTROINTESTINAL: No nausea/vomiting. GENITOURINARY: No hematuria/dysuria. MUSCULOSKELETAL: No myagias/arthalgias. PSYCHIATRIC: The patient denies depression. NEUROLOGIC: No weakness Constitutional: alert Psych: no complaints Head: normocephalic ENMT: mucosa pink and moist Neck: jvd (9 cm water), supple Respiratory: diminished breath sounds (at bases/B) Cardiovascular: regular rate and rhythm Gastrointestinal: non-tender, soft Musculoskeletal: muscle tone Extremities: normal pulses Neurological: other (No focal defuicits) Results Result Diagram: 10/10/1660310/10/16603 Medications Medications Current Medications Ondansetron HCl (Zofran Inj) 4 mg Q6H PRN IV NAUSEA AND/OR VOMITING; Start at 19:30 Enoxaparin Sodium (Lovenox) 30 mg DAILY SC Last administered on 10/11/16 09:32 ; Admin Dose 30 MG; Start 09/27/16 at 09:00 Ascorbic Acid (Vitamin C) 500 mg DAILY GTB Last administered on 10/11/16 09:11 ; Admin Dose 500 MG; Start 09/28/16 at 09:00 Aspirin (Aspirin) 81 mg DAILY GTB Last administered on 10/11/16 09:10; Admin Dose 81 MG; Start 09/28/16 at 09:00 Lorazepam (Ativan) 0.5 mg Q6 PRN GTB ANXIETY Last administered on 10/05/16 00: 32; Admin Dose 0.5 MG; Start 09/27/16 at 14:00 Multivitamins/ Minerals (Theragran-M) 1 tab DAILY PO Last administered on 09:10; Admin Dose 1 TAB; Start 09/28/16 at 09:00 Carvedilol 3.125 mg 3.125 mg BID GTB Last administered on 10/11/16 09:11; Admin Dose 3.125 MG; Start 09/27/16 at 21:30 Sodium Chloride (NS) 1,000 ml @ 100 mls/hr Q10H IV Last administered on 06:00; Admin Dose 100 MLS/HR; Start 09/30/16 at 18:05 Morphine Sulfate (morphine) 2 mg Q2H PRN IV PAIN; Start 09/30/16 at 18:30 Acetaminophen/ Hydrocodone Bitart ([place] (5/325)) 1 tab Q3H PRN PO PAIN Last administered on 10/11/16 11:03; Admin Dose 1 TAB; Start 09/30/16 at 18:30 Famotidine (Pepcid) 20 mg BID GTB Last administered on 10/11/16 09:10; Admin Dose 20 MG; Start 10/03/16 at 21:00 Lisinopril (Zestril) 10 mg BID GTB Last administered on 10/11/16 09:10; Admin Dose 10 MG; Start 10/08/16 at 21:00 SIDNEY FLEMING Oct 11, 2016 12:21
[2016-10-11] MEDS: LORAZEPAM 0.5 MG TAB GTB PRN (18:32)
[2016-10-12] VITALS (14 sets, daily range): BP systolic 111–152; BP diastolic 57–80; PULSE 63–99; RESP 18–20
[2016-10-12] MEDS: SOD CHLORIDE 0.9% 1,000 ML IV SCH ×4 (00:05→21:32)
[2016-10-12] MEDS: LORAZEPAM 0.5 MG TAB GTB PRN ×2 (01:04→22:10)
[2016-10-12 06:06] LABS: BASOPHILS % 0.6 % (0.0-2.0); EOSINOPHILS # 0.2 10^3/ul (0.0-0.5); EOSINOPHILS % 4.3 % (0.0-7.0); HEMATOCRIT 29.9 % (42.0-52.0); HEMOGLOBIN 9.8 g/dl (14.0-18.0); LYMPHOCYTES # 1.5 10^3/ul (0.8-2.9); LYMPHOCYTES % 27.2 % (15.0-51.0); MEAN CORPUSCULAR HEMOGLOBIN 27.1 pg (29.0-33.0); MEAN CORPUSCULAR HGB CONC 32.8 g/dl (32.0-37.0); MEAN CORPUSCULAR VOLUME 82.8 fl (82.0-101.0); MEAN PLATELET VOLUME 12.8 fl (7.4-10.4); MONOCYTE # 0.6 10^3/ul (0.3-0.9); MONOCYTES % 10.5 % (0.0-11.0); NEUTROPHIL # 3.1 10^3/ul (1.6-7.5); NEUTROPHILS % 57.2 % (39.0-77.0); PLATELET COUNT 278 10^3/UL (140-415); RED BLOOD COUNT 3.61 10^6/ul (4.70-6.10); RED CELL DISTRIBUTION WIDTH 15.6 % (11.5-14.5); WHITE BLOOD COUNT 5.3 10^3/ul (4.8-10.8)
[2016-10-12] MEDS: FUROSEMIDE 20 MG TAB GTB SCH ×2 (06:20→17:45)
[2016-10-12 06:50] LABS: CALCIUM 9.5 mg/dl (8.4-10.2); CREATININE 0.66 mg/dl (0.61-1.24)
[2016-10-12 07:38] LABS: POTASSIUM 4.5 mmol/L (3.5-5.1)
[2016-10-12] MEDS: ALBUTEROL/IPRATROPIUM (NEB) 3 ML AMP INH SCH ×4 (08:20→20:11)
--- NOTE | 2016-10-12 10:05 | PN ---
Date/Time of Note Date/Time of Note DATE: 10/12/16 TIME: 10:05 Assessment/Plan VTE Prophylaxis VTE Prophylaxis Intervention: other Lines/Catheters IV Catheter Type (from [facility]): Peripheral IV Urinary Cath still in place: No Assessment/Plan Chief Complaint/Hosp Course -Closed left humeral fracture, status post ORIF of left humerus fracture. Dr. Manuel is following in orthopedic surgery consultation. - Chronic respiratory failure secondary tracheostomy dislodged by patient 09/29. Dr. Tyson is following in pulmonology consultation. - G-tube displacement, status new G-tube placement in ER. - Status post mechanical fall. - Metastatic breast cancer, status post right mastectomy. Patient is not a candidate for chemotherapy. - Transaminitis - Anemia, no indication for blood transfusion. - History of CVA with left-sided hemiplegia. - Hypertension, continue Coreg and lisinopril. - COPD, continue breathing treatment. - History of left leg fracture Problems: Subjective 24 Hr Interval Summary Free Text/Dictation Patient remain nonverbal, comfortable Exam/Review of Systems Vital Signs Vitals Vital Signs Date Time Temp Pulse Resp B/P Pulse Ox O2 Delivery O2 Flow Rate FiO2 10/12/16 08:20 98 5.0 28 10/12/16 08:20 60 20 Aerosol T Tube 10/12/16 07:59 98.7 132/67 Intake and Output 10/11/16 10/11/16 10/12/16 15:00 23:00 07:00 Intake Total 2290 ml 2640 ml Balance 2290 ml 2640 ml Exam Constitutional: well developed Head: atraumatic, normocephalic Neck: supple Respiratory: clear to auscultation Cardiovascular: regular rate and rhythm Gastrointestinal: soft Extremities: normal pulses Results Result Diagram: 10/12/1628 10/12/1628 Results 24 hrs Laboratory Tests Test 10/12/16 05:28 White Blood Count 5.3 Red Blood Count 3.61 L Hemoglobin 9.8 L Hematocrit 29.9 L Mean Corpuscular Volume 82.8 Mean Corpuscular Hemoglobin 27.1 L Mean Corpuscular Hemoglobin Concent 32.8 Red Cell Distribution Width 15.6 H Platelet Count 278 # Mean Platelet Volume 12.8 H Neutrophils % 57.2 Lymphocytes % 27.2 Monocytes % 10.5 Eosinophils % 4.3 Basophils % 0.6 Nucleated Red Blood Cells % 0.0 Neutrophils # 3.1 Lymphocytes # 1.5 Monocytes # 0.6 Eosinophils # 0.2 Basophils # 0.0 Nucleated Red Blood Cells # 0.0 Sodium Level 143 Potassium Level 4.5 Chloride Level 103 Carbon Dioxide Level 28 Anion Gap 17 H Blood Urea Nitrogen 15 Creatinine 0.66 Glucose Level 86 Calcium Level 9.5 Medications Medications Current Medications Ondansetron HCl (Zofran Inj) 4 mg Q6H PRN IV NAUSEA AND/OR VOMITING; Start at 19:30 Enoxaparin Sodium (Lovenox) 30 mg DAILY SC Last administered on 10/11/16 09:32 ; Admin Dose 30 MG; Start 09/27/16 at 09:00 Ascorbic Acid (Vitamin C) 500 mg DAILY GTB Last administered on 10/11/16 09:11 ; Admin Dose 500 MG; Start 09/28/16 at 09:00 Aspirin (Aspirin) 81 mg DAILY GTB Last administered on 10/11/16 09:10; Admin Dose 81 MG; Start 09/28/16 at 09:00 Lorazepam (Ativan) 0.5 mg Q6 PRN GTB ANXIETY Last administered on 10/12/16 01: 04; Admin Dose 0.5 MG; Start 09/27/16 at 14:00 Multivitamins/ Minerals (Theragran-M) 1 tab DAILY PO Last administered on 09:10; Admin Dose 1 TAB; Start 09/28/16 at 09:00 Carvedilol 3.125 mg 3.125 mg BID GTB Last administered on 10/11/16 22:14; Admin Dose 3.125 MG; Start 09/27/16 at 21:30 Sodium Chloride (NS) 1,000 ml @ 100 mls/hr Q10H IV Last administered on 01:04; Admin Dose 100 MLS/HR; Start 09/30/16 at 18:05 Morphine Sulfate (morphine) 2 mg Q2H PRN IV PAIN; Start 09/30/16 at 18:30 Acetaminophen/ Hydrocodone Bitart ([place] (5/325)) 1 tab Q3H PRN PO PAIN Last administered on 10/11/16 11:03; Admin Dose 1 TAB; Start 09/30/16 at 18:30 Famotidine (Pepcid) 20 mg BID GTB Last administered on 10/11/16 22:14; Admin Dose 20 MG; Start 10/03/16 at 21:00 Lisinopril (Zestril) 10 mg BID GTB Last administered on 10/11/16 22:14; Admin Dose 10 MG; Start 10/08/16 at 21:00 YARELIS MIRELES Oct 12, 2016 10:05
[2016-10-12] MEDS: ASPIRIN 81 MG TAB GTB SCH (10:06)
[2016-10-12] MEDS: LISINOPRIL 10 MG TAB GTB SCH ×2 (10:06→22:11)
[2016-10-12] MEDS: FAMOTIDINE 20 MG TAB GTB SCH ×2 (10:06→22:10)
[2016-10-12] MEDS: ASCORBIC ACID 500 MG TAB GTB SCH (10:06)
[2016-10-12] MEDS: MULTIVITAMINS/MINERALS TAB PO SCH (10:06)
[2016-10-12] MEDS: ENOXAPARIN 30 MG/0.3 ML SYG SC SCH (10:08)
--- NOTE | 2016-10-12 10:10 | CONS ---
Date/Time of Note Date/Time of Note DATE: 10/12/16 TIME: 10:08 Assessment/Plan Assessment/Plan Additional Assessment/Plan 1.Pre-op-for humeral surgery due to pathological fracture-negative trop x 3. Echo EF 50-55. No contraindicated valve lesions. Lexiscan with no ischemia. EF 48%. Thus ok to proceed to surgery at moderate risk without further non- invasive evaluation. Now Post-op s/p L UE ORIF of humeral fx - tolerated procedure well - of tele now 2.HTN - wel Rx, con't med rx 3.CAD - no chest pain, no intervention planned 4.Humeral fx-pathologic s/p surgical repair 5.breast ca - hemonc follows 6. trach s/p self d/c 09/29 am - now resp care in place 7. Confusion/encephalopathy Consultation Date/Type/Reason Admit Date/Time Sep 28, 2016 at 16:35 Initial Consult Date 09/29/16 Type of Consultation: cardiology Referring Provider: ARNOLDO GUILLAUME MD 24 HR Interval Summary Free Text/Dictation NO acute events - BP in good range - con't resp Rx ROS: No fever, no chills, no nausea, no vomiting, no diarrhea/constipation No recent weight changes No chest pain, no PND, no orthopnea No dizziness, blurred vision No thirst, no heat or cold intolerance (per nurse) Exam/Review of Systems Vital Signs Vitals Vital Signs Date Time Temp Pulse Resp B/P Pulse Ox O2 Delivery O2 Flow Rate FiO2 10/12/16 08:20 98 5.0 28 10/12/16 08:20 60 20 Aerosol T Tube 10/12/16 07:59 98.7 132/67 Intake and Output 10/11/16 10/11/16 10/12/16 15:00 23:00 07:00 Intake Total 2290 ml 2640 ml Balance 2290 ml 2640 ml Exam General: WN/WD/NAD, AOx comfortable HEENT: Unicetric/atraumatic/EOMI (does not follow commands) NECK: Trach Lymph: no lymphadenopathy HEART: regular with no S3, II/ systolic murmur at apex LUNGS: Coarse sounds ABD: soft, NT, ND, +BS : Intact Neuro: non focal SKIN: chronic changes EXT: trace edema Results Result Diagram: 10/12/1628 10/12/1628 Results 24 hrs Laboratory Tests Test 10/12/16 05:28 White Blood Count 5.3 Red Blood Count 3.61 L Hemoglobin 9.8 L Hematocrit 29.9 L Mean Corpuscular Volume 82.8 Mean Corpuscular Hemoglobin 27.1 L Mean Corpuscular Hemoglobin Concent 32.8 Red Cell Distribution Width 15.6 H Platelet Count 278 # Mean Platelet Volume 12.8 H Neutrophils % 57.2 Lymphocytes % 27.2 Monocytes % 10.5 Eosinophils % 4.3 Basophils % 0.6 Nucleated Red Blood Cells % 0.0 Neutrophils # 3.1 Lymphocytes # 1.5 Monocytes # 0.6 Eosinophils # 0.2 Basophils # 0.0 Nucleated Red Blood Cells # 0.0 Sodium Level 143 Potassium Level 4.5 Chloride Level 103 Carbon Dioxide Level 28 Anion Gap 17 H Blood Urea Nitrogen 15 Creatinine 0.66 Glucose Level 86 Calcium Level 9.5 Medications Medications Current Medications Ondansetron HCl (Zofran Inj) 4 mg Q6H PRN IV NAUSEA AND/OR VOMITING; Start at 19:30 Enoxaparin Sodium (Lovenox) 30 mg DAILY SC Last administered on 10/11/16 09:32 ; Admin Dose 30 MG; Start 09/27/16 at 09:00 Ascorbic Acid (Vitamin C) 500 mg DAILY GTB Last administered on 10/11/16 09:11 ; Admin Dose 500 MG; Start 09/28/16 at 09:00 Aspirin (Aspirin) 81 mg DAILY GTB Last administered on 10/11/16 09:10; Admin Dose 81 MG; Start 09/28/16 at 09:00 Lorazepam (Ativan) 0.5 mg Q6 PRN GTB ANXIETY Last administered on 10/12/16 01: 04; Admin Dose 0.5 MG; Start 09/27/16 at 14:00 Multivitamins/ Minerals (Theragran-M) 1 tab DAILY PO Last administered on 09:10; Admin Dose 1 TAB; Start 09/28/16 at 09:00 Carvedilol 3.125 mg 3.125 mg BID GTB Last administered on 10/11/16 22:14; Admin Dose 3.125 MG; Start 09/27/16 at 21:30 Sodium Chloride (NS) 1,000 ml @ 100 mls/hr Q10H IV Last administered on 01:04; Admin Dose 100 MLS/HR; Start 09/30/16 at 18:05 Morphine Sulfate (morphine) 2 mg Q2H PRN IV PAIN; Start 09/30/16 at 18:30 Acetaminophen/ Hydrocodone Bitart ([place] (5/325)) 1 tab Q3H PRN PO PAIN Last administered on 10/11/16 11:03; Admin Dose 1 TAB; Start 09/30/16 at 18:30 Famotidine (Pepcid) 20 mg BID GTB Last administered on 10/11/16 22:14; Admin Dose 20 MG; Start 10/03/16 at 21:00 Lisinopril (Zestril) 10 mg BID GTB Last administered on 10/11/16 22:14; Admin Dose 10 MG; Start 10/08/16 at 21:00 NHUNG BELTRAN MD Oct 12, 2016 10:10
[2016-10-13] VITALS (13 sets, daily range): BP systolic 113–150; BP diastolic 62–92; PULSE 76–95; RESP 18–22
[2016-10-13] MEDS: LORAZEPAM 0.5 MG TAB GTB PRN (03:44)
[2016-10-13] MEDS: SOD CHLORIDE 0.9% 1,000 ML IV SCH ×3 (06:05→18:02)
[2016-10-13] MEDS: FUROSEMIDE 20 MG TAB GTB SCH ×2 (06:19→18:01)
[2016-10-13] MEDS: ALBUTEROL/IPRATROPIUM (NEB) 3 ML AMP INH SCH ×4 (08:47→19:57)
[2016-10-13] MEDS: ASCORBIC ACID 500 MG TAB GTB SCH (09:39)
[2016-10-13] MEDS: ASPIRIN 81 MG TAB GTB SCH (09:39)
[2016-10-13] MEDS: FAMOTIDINE 20 MG TAB GTB SCH ×2 (09:39→21:48)
[2016-10-13] MEDS: ENOXAPARIN 30 MG/0.3 ML SYG SC SCH (09:39)
[2016-10-13] MEDS: MULTIVITAMINS/MINERALS TAB PO SCH (09:42)
[2016-10-13] MEDS: LISINOPRIL 10 MG TAB GTB SCH ×2 (09:42→21:48)
--- NOTE | 2016-10-13 11:25 | PN ---
Date/Time of Note Date/Time of Note DATE: 10/13/16 TIME: 11:24 Assessment/Plan VTE Prophylaxis VTE Prophylaxis Intervention: other Lines/Catheters [facility] ([facility] Peripheral IV Urinary Cath still in place: No Assessment/Plan Chief Complaint/Hosp Course -Closed left humeral fracture, status post ORIF of left humerus fracture. Dr. Manuel is following in orthopedic surgery consultation. - Chronic respiratory failure secondary tracheostomy dislodged by patient 09/29. Dr. Tyson is following in pulmonology consultation. - G-tube displacement, status new G-tube placement in ER. - Status post mechanical fall. - Metastatic breast cancer, status post right mastectomy. Patient is not a candidate for chemotherapy. - Transaminitis - Anemia, no indication for blood transfusion. - History of CVA with left-sided hemiplegia. - Hypertension, continue Coreg and lisinopril. - COPD, continue breathing treatment. - History of left leg fracture Problems: Subjective 24 Hr Interval Summary Free Text/Dictation Patient appears comfortably, trach in place Exam/Review of Systems Vital Signs Vitals Vital Signs Date Time Temp Pulse Resp B/P Pulse Ox O2 Delivery O2 Flow Rate FiO2 10/13/16 10:00 97.8 77 18 147/70 98 T Tube 5.0 10/13/16 08:48 28 Intake and Output 10/12/16 10/12/16 10/13/16 15:00 23:00 07:00 Intake Total 640 ml 1950 ml 2050 ml Balance 640 ml 1950 ml 2050 ml Exam Constitutional: well developed Head: atraumatic, normocephalic Neck: supple Respiratory: clear to auscultation Cardiovascular: regular rate and rhythm Gastrointestinal: non-tender, soft Extremities: normal pulses Results Result Diagram: 10/12/1628 10/12/16 05 Medications Medications Current Medications Ondansetron HCl (Zofran Inj) 4 mg Q6H PRN IV NAUSEA AND/OR VOMITING; Start at 19:30 Enoxaparin Sodium (Lovenox) 30 mg DAILY SC Last administered on 10/13/16 09:39 ; Admin Dose 30 MG; Start 09/27/16 at 09:00 Ascorbic Acid (Vitamin C) 500 mg DAILY GTB Last administered on 10/13/16 09:39 ; Admin Dose 500 MG; Start 09/28/16 at 09:00 Aspirin (Aspirin) 81 mg DAILY GTB Last administered on 10/13/16 09:39; Admin Dose 81 MG; Start 09/28/16 at 09:00 Lorazepam (Ativan) 0.5 mg Q6 PRN GTB ANXIETY Last administered on 10/13/16 03: 44; Admin Dose 0.5 MG; Start 09/27/16 at 14:00 Multivitamins/ Minerals (Theragran-M) 1 tab DAILY PO Last administered on 09:42; Admin Dose 1 TAB; Start 09/28/16 at 09:00 Carvedilol 3.125 mg 3.125 mg BID GTB Last administered on 10/13/16 09:43; Admin Dose 3.125 MG; Start 09/27/16 at 21:30 Sodium Chloride (NS) 1,000 ml @ 100 mls/hr Q10H IV Last administered on 07:54; Admin Dose 100 MLS/HR; Start 09/30/16 at 18:05 Morphine Sulfate (morphine) 2 mg Q2H PRN IV PAIN; Start 09/30/16 at 18:30 Acetaminophen/ Hydrocodone Bitart ([place] (5/325)) 1 tab Q3H PRN PO PAIN Last administered on 10/11/16 11:03; Admin Dose 1 TAB; Start 09/30/16 at 18:30 Famotidine (Pepcid) 20 mg BID GTB Last administered on 10/13/16 09:39; Admin Dose 20 MG; Start 10/03/16 at 21:00 Lisinopril (Zestril) 10 mg BID GTB Last administered on 10/13/16 09:42; Admin Dose 10 MG; Start 10/08/16 at 21:00 YARELIS MIRELES Oct 13, 2016 11:24
--- NOTE | 2016-10-13 15:43 | CONS ---
Date/Time of Note Date/Time of Note DATE: 10/13/16 TIME: 15:41 Assessment/Plan Assessment/Plan Additional Assessment/Plan 1.Pre-op-for humeral surgery due to pathological fracture-negative trop x 3. Echo EF 50-55. No contraindicated valve lesions. Lexiscan with no ischemia. EF 48%. Thus ok to proceed to surgery at moderate risk without further non- invasive evaluation. Now Post-op s/p L UE ORIF of humeral fx - tolerated procedure well - of tele now - STABLE 2.HTN - wel Rx, con't med rx 3.CAD - no chest pain, no intervention planned 4.Humeral fx-pathologic s/p surgical repair 5.breast ca - hemonc follows 6. trach s/p self d/c 09/29 am - now resp care in place - SIGNIFICANT SECRETIONS now - Rx/suctioning 7. Confusion/encephalopathy Consultation Date/Type/Reason Admit Date/Time Sep 28, 2016 at 16:35 Initial Consult Date 09/29/16 Type of Consultation: cardiology Referring Provider: ARNOLDO GUILLAUME MD 24 HR Interval Summary Free Text/Dictation NO acute events - BP stable - in good fluid status now ROS: No fever, no chills, no nausea, no vomiting, no diarrhea/constipation No recent weight changes No chest pain, no PND, no orthopnea No dizziness, blurred vision No thirst, no heat or cold intolerance Exam/Review of Systems Vital Signs Vitals Vital Signs Date Time Temp Pulse Resp B/P Pulse Ox O2 Delivery O2 Flow Rate FiO2 10/13/16 14:00 98.3 77 20 121/62 99 T Tube 5.0 10/13/16 08:48 28 Intake and Output 10/12/16 10/12/16 10/13/16 15:00 23:00 07:00 Intake Total 640 ml 1950 ml 2050 ml Balance 640 ml 1950 ml 2050 ml Exam General: WN/WD/NAD, AOx 0-1 HEENT: Unicetric/atraumatic/EOMI (does not follow commands) NECK: trach + secretions Lymph: no lymphadenopathy HEART: regular with no S3, II/ systolic murmur at apex LUNGS: Coarse sounds ABD: soft, NT, ND, +BS : Intact Neuro: non focal SKIN: chronic changes EXT: trace edema Results Result Diagram: 10/12/16 0528 10/12/1628 Medications Medications Current Medications Ondansetron HCl (Zofran Inj) 4 mg Q6H PRN IV NAUSEA AND/OR VOMITING; Start at 19:30 Enoxaparin Sodium (Lovenox) 30 mg DAILY SC Last administered on 10/13/16 09:39 ; Admin Dose 30 MG; Start 09/27/16 at 09:00 Ascorbic Acid (Vitamin C) 500 mg DAILY GTB Last administered on 10/13/16 09:39 ; Admin Dose 500 MG; Start 09/28/16 at 09:00 Aspirin (Aspirin) 81 mg DAILY GTB Last administered on 10/13/16 09:39; Admin Dose 81 MG; Start 09/28/16 at 09:00 Lorazepam (Ativan) 0.5 mg Q6 PRN GTB ANXIETY Last administered on 10/13/16 03: 44; Admin Dose 0.5 MG; Start 09/27/16 at 14:00 Multivitamins/ Minerals (Theragran-M) 1 tab DAILY PO Last administered on 09:42; Admin Dose 1 TAB; Start 09/28/16 at 09:00 Carvedilol 3.125 mg 3.125 mg BID GTB Last administered on 10/13/16 09:43; Admin Dose 3.125 MG; Start 09/27/16 at 21:30 Sodium Chloride (NS) 1,000 ml @ 100 mls/hr Q10H IV Last administered on 07:54; Admin Dose 100 MLS/HR; Start 09/30/16 at 18:05 Morphine Sulfate (morphine) 2 mg Q2H PRN IV PAIN; Start 09/30/16 at 18:30 Acetaminophen/ Hydrocodone Bitart ([place] (5/325)) 1 tab Q3H PRN PO PAIN Last administered on 10/11/16 11:03; Admin Dose 1 TAB; Start 09/30/16 at 18:30 Famotidine (Pepcid) 20 mg BID GTB Last administered on 10/13/16 09:39; Admin Dose 20 MG; Start 10/03/16 at 21:00 Lisinopril (Zestril) 10 mg BID GTB Last administered on 10/13/16 09:42; Admin Dose 10 MG; Start 10/08/16 at 21:00 NHUNG BELTRAN MD Oct 13, 2016 15:43
[2016-10-14] VITALS (13 sets, daily range): BP systolic 116–162; BP diastolic 56–96; PULSE 70–96; RESP 17–20
[2016-10-14] MEDS: SOD CHLORIDE 0.9% 1,000 ML IV SCH ×3 (03:50→22:26)
[2016-10-14] MEDS: FUROSEMIDE 20 MG TAB GTB SCH ×2 (06:09→17:13)
[2016-10-14 06:13] LABS: BASOPHILS % 0.6 % (0.0-2.0); EOSINOPHILS # 0.3 10^3/ul (0.0-0.5); EOSINOPHILS % 5.1 % (0.0-7.0); HEMOGLOBIN 9.2 g/dl (14.0-18.0); LYMPHOCYTES # 1.4 10^3/ul (0.8-2.9); LYMPHOCYTES % 27.2 % (15.0-51.0); MEAN CORPUSCULAR HEMOGLOBIN 26.7 pg (29.0-33.0); MEAN CORPUSCULAR HGB CONC 32.9 g/dl (32.0-37.0); MEAN CORPUSCULAR VOLUME 81.4 fl (82.0-101.0); MEAN PLATELET VOLUME 11.5 fl (7.4-10.4); MONOCYTE # 0.7 10^3/ul (0.3-0.9); MONOCYTES % 13.9 % (0.0-11.0); NEUTROPHIL # 2.8 10^3/ul (1.6-7.5); PLATELET COUNT 456 10^3/UL (140-415); RED BLOOD COUNT 3.44 10^6/ul (4.70-6.10); RED CELL DISTRIBUTION WIDTH 15.6 % (11.5-14.5); WHITE BLOOD COUNT 5.3 10^3/ul (4.8-10.8)
[2016-10-14 06:29] LABS: CALCIUM 8.9 mg/dl (8.4-10.2); CREATININE 0.65 mg/dl (0.61-1.24); POTASSIUM 3.5 mmol/L (3.5-5.1)
[2016-10-14] MEDS: ASCORBIC ACID 500 MG TAB GTB SCH (08:00)
[2016-10-14] MEDS: ASPIRIN 81 MG TAB GTB SCH (08:00)
[2016-10-14] MEDS: FAMOTIDINE 20 MG TAB GTB SCH ×2 (08:00→20:42)
[2016-10-14] MEDS: MULTIVITAMINS/MINERALS TAB PO SCH (08:00)
[2016-10-14] MEDS: LISINOPRIL 10 MG TAB GTB SCH ×2 (08:01→20:42)
[2016-10-14] MEDS: ENOXAPARIN 30 MG/0.3 ML SYG SC SCH (08:05)
[2016-10-14] MEDS: ALBUTEROL/IPRATROPIUM (NEB) 3 ML AMP INH SCH ×4 (08:28→19:43)
--- NOTE | 2016-10-14 10:37 | CONS ---
Date/Time of Note Date/Time of Note DATE: 10/14/16 TIME: 10:33 Assessment/Plan Assessment/Plan Chief Complaint/Hosp Course IMP: 1.Pre-op-for humeral surgery due to pathological fracture-negative trop x 3. Echo EF 50-55. No contraindicated valve lesions. Lexiscan with no ischemia. EF 48%. Thus ok to proceed to surgery at moderate risk without further non- invasive evaluation. Now Post-op s/p L UE ORIF of humeral fx 2.HTN 3.CAD 4.Humeral fx-pathologic s/p surgical repair 5.breast ca 6. trach s/p self d/c 09/29 am 7. Confusion/encephalopathy 8. Hypernatremia Recc: -Continue asa -Continue zestril/coreg -Continue gentle lasix diuresis -Pain control -Follow MS closely -Free water for increased NA Problems: Consultation Date/Type/Reason Admit Date/Time Sep 28, 2016 at 16:35 Initial Consult Date 09/27/2016 Type of Consultation: cardiology Reason for Consultation HTN/Pre-op Referring Provider: ARNOLDO GUILLAUME MD Exam/Review of Systems Vital Signs Vitals Vital Signs Date Time Temp Pulse Resp B/P Pulse Ox O2 Delivery O2 Flow Rate FiO2 10/14/16 08:31 5.0 28 10/14/16 08:31 96 20 98 Aerosol T Tube 10/14/16 08:21 98.2 133/70 Intake and Output 10/13/16 10/13/16 10/14/16 15:00 23:00 07:00 Intake Total 200 ml 2000 ml 2020 ml Output Total 700 ml 1800 ml Balance 200 ml 1300 ml 220 ml Exam Review of Systems: CONSTITUTIONAL: No fevers, chills. PULMONARY: No sob CARDIOVASCULAR: No chest pain/palpitations GASTROINTESTINAL: No nausea/vomiting. GENITOURINARY: No hematuria/dysuria. MUSCULOSKELETAL: No myagias/arthalgias. PSYCHIATRIC: The patient denies depression. NEUROLOGIC: No weakness Constitutional: alert Psych: no complaints Head: normocephalic ENMT: mucosa pink and moist Neck: jvd (9 cm water) Respiratory: diminished breath sounds (at bases/B) Cardiovascular: regular rate and rhythm Gastrointestinal: non-tender, soft Musculoskeletal: muscle tone (normal) Extremities: edema (none) Neurological: lethargic, other (No focal deficits) Results Result Diagram: 10/14/16 0514 10/14/16 0514 Results 24 hrs Laboratory Tests Test 10/14/16 05:14 White Blood Count 5.3 Red Blood Count 3.44 L Hemoglobin 9.2 L Hematocrit 28.0 L Mean Corpuscular Volume 81.4 L Mean Corpuscular Hemoglobin 26.7 L Mean Corpuscular Hemoglobin Concent 32.9 Red Cell Distribution Width 15.6 H Platelet Count 456 #H Mean Platelet Volume 11.5 H Neutrophils % 53.0 Lymphocytes % 27.2 Monocytes % 13.9 H Eosinophils % 5.1 Basophils % 0.6 Nucleated Red Blood Cells % 0.0 Neutrophils # 2.8 Lymphocytes # 1.4 Monocytes # 0.7 Eosinophils # 0.3 Basophils # 0.0 Nucleated Red Blood Cells # 0.0 Sodium Level 145 H Potassium Level 3.5 Chloride Level 103 Carbon Dioxide Level 29 Anion Gap 17 H Blood Urea Nitrogen 15 Creatinine 0.65 Glucose Level 99 Calcium Level 8.9 Medications Medications Current Medications Ondansetron HCl (Zofran Inj) 4 mg Q6H PRN IV NAUSEA AND/OR VOMITING; Start at 19:30 Enoxaparin Sodium (Lovenox) 30 mg DAILY SC Last administered on 10/14/16 08:05 ; Admin Dose 30 MG; Start 09/27/16 at 09:00 Ascorbic Acid (Vitamin C) 500 mg DAILY GTB Last administered on 10/14/16 08:00 ; Admin Dose 500 MG; Start 09/28/16 at 09:00 Aspirin (Aspirin) 81 mg DAILY GTB Last administered on 10/14/16 08:00; Admin Dose 81 MG; Start 09/28/16 at 09:00 Lorazepam (Ativan) 0.5 mg Q6 PRN GTB ANXIETY Last administered on 10/13/16 03: 44; Admin Dose 0.5 MG; Start 09/27/16 at 14:00 Multivitamins/ Minerals (Theragran-M) 1 tab DAILY PO Last administered on 08:00; Admin Dose 1 TAB; Start 09/28/16 at 09:00 Carvedilol 3.125 mg 3.125 mg BID GTB Last administered on 10/14/16 08:00; Admin Dose 3.125 MG; Start 09/27/16 at 21:30 Sodium Chloride (NS) 1,000 ml @ 100 mls/hr Q10H IV Last administered on 03:50; Admin Dose 100 MLS/HR; Start 09/30/16 at 18:05 Morphine Sulfate (morphine) 2 mg Q2H PRN IV PAIN; Start 09/30/16 at 18:30 Acetaminophen/ Hydrocodone Bitart ([place] (5/325)) 1 tab Q3H PRN PO PAIN Last administered on 10/11/16 11:03; Admin Dose 1 TAB; Start 09/30/16 at 18:30 Famotidine (Pepcid) 20 mg BID GTB Last administered on 10/14/16 08:00; Admin Dose 20 MG; Start 10/03/16 at 21:00 Lisinopril (Zestril) 10 mg BID GTB Last administered on 10/14/16 08:01; Admin Dose 10 MG; Start 10/08/16 at 21:00 SIDNEY FLEMING Oct 14, 2016 10:37
[2016-10-14] MEDS ORDERED: morphine 4 MG/ML VIAL IV PRN (14:00)
--- NOTE | 2016-10-14 14:26 | PN ---
Date/Time of Note Date/Time of Note DATE: 10/14/16 TIME: 14:26 Assessment/Plan VTE Prophylaxis VTE Prophylaxis Intervention: other Lines/Catheters IV C[facility]ter Type (from [facility]): Peripheral IV Assessment/Plan Chief Complaint/Hosp Course -Closed left humeral fracture, status post ORIF of left humerus fracture. Dr. Manuel is following in orthopedic surgery consultation. - Chronic respiratory failure secondary tracheostomy dislodged by patient 09/29. Dr. Tyson is following in pulmonology consultation. - G-tube displacement, status new G-tube placement in ER. - Status post mechanical fall. - Metastatic breast cancer, status post right mastectomy. Patient is not a candidate for chemotherapy. - Transaminitis - Anemia, no indication for blood transfusion. - History of CVA with left-sided hemiplegia. - Hypertension, continue Coreg and lisinopril. - COPD, continue breathing treatment. - History of left leg fracture Problems: Subjective 24 Hr Interval Summary Free Text/Dictation Patient has no complaints Exam/Review of Systems Vital Signs Vitals Vital Signs Date Time Temp Pulse Resp B/P Pulse Ox O2 Delivery O2 Flow Rate FiO2 10/14/16 14:12 98.0 87 18 131/67 99 10/14/16 14:00 Trach Collar 10/14/16 12:25 5.0 28 Intake and Output 10/13/16 10/13/16 10/14/16 15:00 23:00 07:00 Intake Total 200 ml 2000 ml 2020 ml Output Total 700 ml 1800 ml Balance 200 ml 1300 ml 220 ml Exam Constitutional: well developed Head: atraumatic, normocephalic Neck: supple Respiratory: clear to auscultation Cardiovascular: regular rate and rhythm Gastrointestinal: non-tender, soft Extremities: normal pulses Results Result Diagram: 10/14/16 0514 10/14/16 0514 Results 24 hrs Laboratory Tests Test 10/14/16 05:14 White Blood Count 5.3 Red Blood Count 3.44 L Hemoglobin 9.2 L Hematocrit 28.0 L Mean Corpuscular Volume 81.4 L Mean Corpuscular Hemoglobin 26.7 L Mean Corpuscular Hemoglobin Concent 32.9 Red Cell Distribution Width 15.6 H Platelet Count 456 #H Mean Platelet Volume 11.5 H Neutrophils % 53.0 Lymphocytes % 27.2 Monocytes % 13.9 H Eosinophils % 5.1 Basophils % 0.6 Nucleated Red Blood Cells % 0.0 Neutrophils # 2.8 Lymphocytes # 1.4 Monocytes # 0.7 Eosinophils # 0.3 Basophils # 0.0 Nucleated Red Blood Cells # 0.0 Sodium Level 145 H Potassium Level 3.5 Chloride Level 103 Carbon Dioxide Level 29 Anion Gap 17 H Blood Urea Nitrogen 15 Creatinine 0.65 Glucose Level 99 Calcium Level 8.9 Medications Medications Current Medications Ondansetron HCl (Zofran Inj) 4 mg Q6H PRN IV NAUSEA AND/OR VOMITING; Start at 19:30 Enoxaparin Sodium (Lovenox) 30 mg DAILY SC Last administered on 10/14/16 08:05 ; Admin Dose 30 MG; Start 09/27/16 at 09:00 Ascorbic Acid (Vitamin C) 500 mg DAILY GTB Last administered on 10/14/16 08:00 ; Admin Dose 500 MG; Start 09/28/16 at 09:00 Aspirin (Aspirin) 81 mg DAILY GTB Last administered on 10/14/16 08:00; Admin Dose 81 MG; Start 09/28/16 at 09:00 Lorazepam (Ativan) 0.5 mg Q6 PRN GTB ANXIETY Last administered on 10/13/16 03: 44; Admin Dose 0.5 MG; Start 09/27/16 at 14:00 Multivitamins/ Minerals (Theragran-M) 1 tab DAILY PO Last administered on 08:00; Admin Dose 1 TAB; Start 09/28/16 at 09:00 Carvedilol 3.125 mg 3.125 mg BID GTB Last administered on 10/14/16 08:00; Admin Dose 3.125 MG; Start 09/27/16 at 21:30 Sodium Chloride (NS) 1,000 ml @ 100 mls/hr Q10H IV Last administered on 12:41; Admin Dose 100 MLS/HR; Start 09/30/16 at 18:05 Acetaminophen/ Hydrocodone Bitart ([place] (5/325)) 1 tab Q3H PRN PO PAIN Last administered on 10/11/16 11:03; Admin Dose 1 TAB; Start 09/30/16 at 18:30 Famotidine (Pepcid) 20 mg BID GTB Last administered on 10/14/16 08:00; Admin Dose 20 MG; Start 10/03/16 at 21:00 Lisinopril (Zestril) 10 mg BID GTB Last administered on 10/14/16t 08:01; Admin Dose 10 MG; Start 10/08/16 at 21:00 Morphine Sulfate (morphine) 2 mg Q2H PRN IV PAIN; Start 10/14/16 at 14:00 YARELIS MIRELES Oct 14, 2016 14:26
[2016-10-15] VITALS (13 sets, daily range): BP systolic 110–136; BP diastolic 60–94; PULSE 74–93; RESP 17–20
[2016-10-15] MEDS: FUROSEMIDE 20 MG TAB GTB SCH ×2 (06:08→17:48)
[2016-10-15] MEDS: ASPIRIN 81 MG TAB GTB SCH (08:21)
[2016-10-15] MEDS: LISINOPRIL 10 MG TAB GTB SCH ×2 (08:21→20:23)
[2016-10-15] MEDS: MULTIVITAMINS/MINERALS TAB PO SCH (08:21)
[2016-10-15] MEDS: ASCORBIC ACID 500 MG TAB GTB SCH (08:22)
[2016-10-15] MEDS: FAMOTIDINE 20 MG TAB GTB SCH ×2 (08:22→20:23)
[2016-10-15] MEDS: SOD CHLORIDE 0.9% 1,000 ML IV SCH ×3 (08:22→18:26)
[2016-10-15] MEDS: ENOXAPARIN 30 MG/0.3 ML SYG SC SCH (08:42)
[2016-10-15] MEDS: ALBUTEROL/IPRATROPIUM (NEB) 3 ML AMP INH SCH ×4 (09:02→20:12)
--- NOTE | 2016-10-15 11:59 | PN ---
Date/Time of Note Date/Time of Note DATE: 10/15/16 TIME: 11:58 Assessment/Plan VTE Prophylaxis VTE Prophylaxis Intervention: other Lines/Catheters IV [facility] Type (from [facility]): Peripheral IV Assessment/Plan Chief Complaint/Hosp Course -Closed left humeral fracture, status post ORIF of left humerus fracture. Dr. Manuel is following in orthopedic surgery consultation. - Chronic respiratory failure secondary tracheostomy dislodged by patient 09/29. Dr. Tyson is following in pulmonology consultation. - G-tube displacement, status new G-tube placement in ER. - Status post mechanical fall. - Metastatic breast cancer, status post right mastectomy. Patient is not a candidate for chemotherapy. - Transaminitis - Anemia, no indication for blood transfusion. - History of CVA with left-sided hemiplegia. - Hypertension, continue Coreg and lisinopril. - COPD, continue breathing treatment. - History of left leg fracture Problems: Subjective 24 Hr Interval Summary Free Text/Dictation Patient has no complaints, trach in place Exam/Review of Systems Vital Signs Vitals Vital Signs Date Time Temp Pulse Resp B/P Pulse Ox O2 Delivery O2 Flow Rate FiO2 10/15/16 09:02 89 20 98 Aerosol 5.0 28 10/15/16 07:13 98.4 126/64 Intake and Output 10/14/16 10/14/16 10/15/16 15:00 23:00 07:00 Intake Total 1000 ml 1000 ml 2050 ml Output Total 1600 ml Balance 1000 ml -600 ml 2050 ml Exam Constitutional: well developed Head: atraumatic, normocephalic Neck: supple Respiratory: diminished breath sounds Cardiovascular: regular rate and rhythm Gastrointestinal: non-tender, soft Extremities: normal pulses Results Result Diagram: 10/14/16 0514 10/14/16 0514 Medications Medications Current Medications Ondansetron HCl (Zofran Inj) 4 mg Q6H PRN IV NAUSEA AND/OR VOMITING; Start at 19:30 Enoxaparin Sodium (Lovenox) 30 mg DAILY SC Last administered on 10/15/16 08:42 ; Admin Dose 30 MG; Start 09/27/16 at 09:00 Ascorbic Acid (Vitamin C) 500 mg DAILY GTB Last administered on 10/15/16 08:22 ; Admin Dose 500 MG; Start 09/28/16 at 09:00 Aspirin (Aspirin) 81 mg DAILY GTB Last administered on 10/15/16 08:21; Admin Dose 81 MG; Start 09/28/16 at 09:00 Lorazepam (Ativan) 0.5 mg Q6 PRN GTB ANXIETY Last administered on 10/13/16 03: 44; Admin Dose 0.5 MG; Start 09/27/16 at 14:00 Multivitamins/ Minerals (Theragran-M) 1 tab DAILY PO Last administered on 08:21; Admin Dose 1 TAB; Start 09/28/16 at 09:00 Carvedilol 3.125 mg 3.125 mg BID GTB Last administered on 10/15/16 08:22; Admin Dose 3.125 MG; Start 09/27/16 at 21:30 Sodium Chloride (NS) 1,000 ml @ 100 mls/hr Q10H IV Last administered on 08:22; Admin Dose 100 MLS/HR; Start 09/30/16 at 18:05 Acetaminophen/ Hydrocodone Bitart ([place] (5/325)) 1 tab Q3H PRN PO PAIN Last administered on 10/11/16 11:03; Admin Dose 1 TAB; Start 09/30/16 at 18:30 Famotidine (Pepcid) 20 mg BID GTB Last administered on 10/15/16 08:22; Admin Dose 20 MG; Start 10/03/16 at 21:00 Lisinopril (Zestril) 10 mg BID GTB Last administered on 10/15/16 08:21; Admin Dose 10 MG; Start 10/08/16 at 21:00 Morphine Sulfate (morphine) 2 mg Q2H PRN IV PAIN; Start 10/14/16 at 14:00 YARELIS MIRELES Oct 15, 2016 11:59
--- NOTE | 2016-10-15 12:26 | CONS ---
Date/Time of Note Date/Time of Note DATE: 10/15/16 TIME: 12:25 Assessment/Plan Assessment/Plan Additional Assessment/Plan 1.Pre-op-for humeral surgery due to pathological fracture-negative trop x 3. Echo EF 50-55. No contraindicated valve lesions. Lexiscan with no ischemia. EF 48%. Thus ok to proceed to surgery at moderate risk without further non- invasive evaluation. Now Post-op s/p L UE ORIF of humeral fx - tolerated procedure well - of tele now - STABLE - NO CHANGE 2.HTN - wel Rx, con't med rx - IN GOOD RANGE 3.CAD - no chest pain, no intervention planned 4.Humeral fx-pathologic s/p surgical repair 5.breast ca - hemonc follows 6. trach s/p self d/c 09/29 am - now resp care in place - SIGNIFICANT SECRETIONS now - Rx/suctioning 7. Confusion/encephalopathy Consultation Date/Type/Reason Admit Date/Time Sep 28, 2016 at 16:35 Initial Consult Date 09/29/16 Type of Consultation: cardiology Referring Provider: ARNOLDO GUILLAUME MD 24 HR Interval Summary Free Text/Dictation NO CP, stable SOB - med rx now ROS: No fever, no chills, no nausea, no vomiting, no diarrhea/constipation No recent weight changes No chest pain, no PND, no orthopnea No dizziness, blurred vision No thirst, no heat or cold intolerance (per nurse) Exam/Review of Systems Vital Signs Vitals Vital Signs Date Time Temp Pulse Resp B/P Pulse Ox O2 Delivery O2 Flow Rate FiO2 10/15/16 12:02 5.0 28 10/15/16 12:02 86 20 10/15/16 09:02 98 Aerosol 10/15/16 07:13 98.4 126/64 Intake and Output 10/14/16 10/14/16 10/15/16 15:00 23:00 07:00 Intake Total 1000 ml 1000 ml 2050 ml Output Total 1600 ml Balance 1000 ml -600 ml 2050 ml Exam General: WN/WD/NAD, AOx 1 confused HEENT: Unicetric/atraumatic/EOMI (follows commands) NECK: JVD elevated, no thyromegaly Lymph: no lymphadenopathy HEART: regular with no S3, II/ systolic murmur at apex LUNGS: Coarse sounds ABD: soft, NT, ND, +BS : Intact Neuro: non focal SKIN: chronic changes EXT: trace edema Results Result Diagram: 10/14/1651310/14/16513 Medications Medications Current Medications Ondansetron HCl (Zofran Inj) 4 mg Q6H PRN IV NAUSEA AND/OR VOMITING; Start at 19:30 Enoxaparin Sodium (Lovenox) 30 mg DAILY SC Last administered on 10/15/16 08:42 ; Admin Dose 30 MG; Start 09/27/16 at 09:00 Ascorbic Acid (Vitamin C) 500 mg DAILY GTB Last administered on 10/15/16 08:22 ; Admin Dose 500 MG; Start 09/28/16 at 09:00 Aspirin (Aspirin) 81 mg DAILY GTB Last administered on 10/15/16 08:21; Admin Dose 81 MG; Start 09/28/16 at 09:00 Lorazepam (Ativan) 0.5 mg Q6 PRN GTB ANXIETY Last administered on 10/13/16 03: 44; Admin Dose 0.5 MG; Start 09/27/16 at 14:00 Multivitamins/ Minerals (Theragran-M) 1 tab DAILY PO Last administered on 08:21; Admin Dose 1 TAB; Start 09/28/16 at 09:00 Carvedilol 3.125 mg 3.125 mg BID GTB Last administered on 10/15/16 08:22; Admin Dose 3.125 MG; Start 09/27/16 at 21:30 Sodium Chloride (NS) 1,000 ml @ 100 mls/hr Q10H IV Last administered on 08:22; Admin Dose 100 MLS/HR; Start 09/30/16 at 18:05 Acetaminophen/ Hydrocodone Bitart ([place] (5/325)) 1 tab Q3H PRN PO PAIN Last administered on 10/11/16 11:03; Admin Dose 1 TAB; Start 09/30/16 at 18:30 Famotidine (Pepcid) 20 mg BID GTB Last administered on 10/15/16 08:22; Admin Dose 20 MG; Start 10/03/16 at 21:00 Lisinopril (Zestril) 10 mg BID GTB Last administered on 10/15/16 08:21; Admin Dose 10 MG; Start 10/08/16 at 21:00 Morphine Sulfate (morphine) 2 mg Q2H PRN IV PAIN; Start 10/14/16 at 14:00 NHUNG BELTRAN MD Oct 15, 2016 12:26
[2016-10-15] MEDS: LORAZEPAM 0.5 MG TAB GTB PRN (13:30)
[2016-10-16] VITALS (8 sets, daily range): BP systolic 133–144; BP diastolic 61–87; PULSE 79–80; RESP 18–20
[2016-10-16] MEDS: SOD CHLORIDE 0.9% 1,000 ML IV SCH (03:37)
[2016-10-16] MEDS: FUROSEMIDE 20 MG TAB GTB SCH (06:19)
[2016-10-16] MEDS: ALBUTEROL/IPRATROPIUM (NEB) 3 ML AMP INH SCH ×2 (07:54→12:00)
[2016-10-16] MEDS: FAMOTIDINE 20 MG TAB GTB SCH (08:19)
[2016-10-16] MEDS: LISINOPRIL 10 MG TAB GTB SCH (08:19)
[2016-10-16] MEDS: MULTIVITAMINS/MINERALS TAB PO SCH (08:19)
[2016-10-16] MEDS: ASPIRIN 81 MG TAB GTB SCH (08:20)
[2016-10-16] MEDS: ASCORBIC ACID 500 MG TAB GTB SCH (08:20)
[2016-10-16] MEDS: LORAZEPAM 0.5 MG TAB GTB PRN (08:20)
[2016-10-16] MEDS: ENOXAPARIN 30 MG/0.3 ML SYG SC SCH (08:36)
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
== END 2016-10-16 12:20 | DRG 492 ==
LOC: E/R 17:52 → MS2 19:28 → INTOOBSV 19:28 → MS2 09-27 00:38 → OBSVTOIN 09-28 16:35
PROVIDERS: ADMIT Internal Medicine; ATTEND Internal Medicine
PROC: 0D20XUZ Change Feeding Device in Upper Intestinal Tract, External Approach (ICD-10-PCS; 2016-09-28)
PROC: 0PSD06Z Reposition Left Humeral Head with Intramedullary Internal Fixation Device, Open Approach (ICD-10-PCS; principal; 2016-09-30 15:00)
DX: S42.292A Other displaced fracture of upper end of left humerus, initial encounter for closed fracture (principal); G93.40 Encephalopathy, unspecified; J96.10 Chronic respiratory failure, unspecified whether with hypoxia or hypercapnia; Z93.0 Tracheostomy status; E87.0 Hyperosmolality and hypernatremia; R13.10 Dysphagia, unspecified; I69.354 Hemiplegia and hemiparesis following cerebral infarction affecting left non-dominant side; I42.9 Cardiomyopathy, unspecified; C79.9 Secondary malignant neoplasm of unspecified site; Z43.1 Encounter for attention to gastrostomy; Z79.82 Long term (current) use of aspirin; K21.9 Gastro-esophageal reflux disease without esophagitis; F41.9 Anxiety disorder, unspecified; I10 Essential (primary) hypertension; Z74.01 Bed confinement status; E86.0 Dehydration; Z85.3 Personal history of malignant neoplasm of breast; Z90.11 Acquired absence of right breast and nipple; R74.0 Nonspecific elevation of levels of transaminase and lactic acid dehydrogenase [LDH]; J44.9 Chronic obstructive pulmonary disease, unspecified; I25.10 Atherosclerotic heart disease of native coronary artery without angina pectoris; E87.6 Hypokalemia; D64.9 Anemia, unspecified; W06.XXXA Fall from bed, initial encounter; Y92.122 Bedroom in nursing home as the place of occurrence of the external cause
CPT/HCPCS: 36415; 71010; 73060; 78452; 80048; 80053; 80061; 83690; 84484; 85014; 85018; 85025; 85610; 87081; 93005; 93017; 93306; 94640; 94664; 96372; 96374; 96375; 97161; 99217; A9500; A9505; G0378; J0690; J1100; J1650; J1885; J2270; J2370; J2405; J2785; J3010; J7030; J7042